=== PATIENT | male | born 1940 | race Caucasian/White ===

== ENCOUNTER 2016-05-11 10:36 | Inpatient (IN) ==
[2016-05-11] MEDS ORDERED: 0.9 % Sodium Chloride 1,000 ML IV SCH (13:30)
--- NOTE | 2016-05-11 14:19 | Internal Medicine Consult Note ---
<Jenna Canas - Last Filed: 05/11/16 14:53> Date of Encounter: 05/11/16 Time of Encounter: 14:00 Internal Medicine - CN: HPI - Data of Consult Patient: new to practice Consult date: 05/11/16 Requesting Physician: Cruzito Clay, - Consult Narrative Reason for consult: Diabetes, pre-operative evaluation History of present illness: Mr. Best is a 75 year old male with significant medical history of insulin- dependent diabetes with diabetic neuropathy, hypertension, history of prostate cancer. He follows Dr. Duvall of the [facility], per documentation his prostate cancer was treated with radiation therapy. Patient states that he has ongoing diabetes going on for over 20 years, with associated diabetic neuropathy. He would endorse numbness below bilateral knees , and have difficulty discerning pain and sensation. Prior history of left foot second toe amputation secondary to diabetic neuropathy with gangrene. States that most recent left foot third toe would develop a callus about 1 week prior, and he did pick at the callus. He does have a dog at home but denies any bites or scratches. The patient then noticed progressive oozing from the site, with purulence. This is accompanied by subjective chills, prompting evaluation at [facility]. Patient would be seen on office visit with Dr. Clay on 05/08/2016 for left toe ulcer/abscess. Prior workup would disclose wound culture of the left foot with pansensitive Staph Aureus, Group B Strep. Gram stain with disclose a few epithelial cells, gram-positive cocci observed. Anaerobic cultures preliminary with disclose no anaerobic growth present. Patient was started on a course of Augmentin and Levaquin, but with no appreciable interval improvement. The internal medicine service is consulted for preoperative evaluation and medical optimization prior to toe amputation.. Upon my evaluation, patient affirms events leading to hospitalization as well as past medical history as mentioned above. 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 He would smoke up to 4 packs per day and now has decreased to 1 pack per day. He has tried nicotine patches in the past but does not want any at this time he does drink an occasional beer or bourbon on occasion, per him once in a blue wright last drink a few months ago. States blood sugars at home run 400s, on insulin 70/30, 50QAM, 40QPM He would have prior cardiac workup in March 2016, disclosing echocardiogram EF 60%, mild aortic stenosis, mild/moderate aortic regurgitation. Nuclear stress test which showed no evidence of ischemia or infarct, gated EF 45 % The patient endorses subjective chills as of today, left foot third toe oozing and redness, poor appetite with weight loss, without any abdominal pain, nausea , vomiting, diarrhea. He denies any chest pain, chest pressure, pleurisy, shortness of breath. Does endorse coughing with productive green phlegm. All systems: reviewed and no additional remarkable complaints except as stated Past Med Surg Social Fam HX - Past Medical History Medical history: cancer, COPD, diabetes, GERD, hypertension Psychiatric history: anxiety, depression - Past Surgical History Surgical History: appendectomy, herniorrhaphy - Social History Smoking Status: Current every day smoker Packs per day: 1 Smokeless Tobacco Status: No Alcohol use: none Drug use: none - Family History Father Living Status: Age at : 46 Cause of : Lung Cancer Hx Family Cardiac Disorders: Yes Hx Family Respiratory Disorders: Yes Hx Family Cancer: Yes (Lung and Colon Cancer) Hx Family GI Disorders: Yes (Colon Cancer) Hx Family Genitourinary Disorders: No Hx Family Endocrine Disorder: Yes (Diabetes) Hx Family Musculoskeletal Disorders: No Hx Family Neuromuscular Disorders: No Hx Family Neurologic Disorders: No Hx Family HEENT Disorders: No Hx Family Autoimmune Disorders: No Hx Family Reproductive Disorders: No Hx Family Psychosocial Disorders: No Hx Family Medical Disorders: No Internal Medicine - CN: Meds Fenofibrate [Tricor] 145 mg PO DAILY 01/16/15 [History] Allopurinol [Zyloprim 300 MG] 300 mg PO HS 02/12/15 [History] Aspirin 81 mg PO DAILY 02/12/15 [History] Budesonide/Formoterol 160/4.5 [Symbicort] 1 puff IH BIDR 02/12/15 [History] Citalopram [CeleXA] 40 mg PO HS 02/12/15 [History] ClonazePAM [Klonopin] 0.5 mg PO BID PRN 02/12/15 [History] Gabapentin [Neurontin] 800 mg PO TID 02/12/15 [History] Insulin NPH Hum/Reg Insulin Hm [Novolin 70-30 100 Unit/ml Vial] 50 unit SQ QAM 02/12/15 [History] LORazepam [Ativan] 1 mg PO HS 02/12/15 [History] Lisinopril [Zestril] 40 mg PO BID 02/12/15 [History] Loratadine [Claritin] 10 mg PO DAILY 02/12/15 [History] Lovastatin [Mevacor] 40 mg PO BID 02/12/15 [History] Metformin [Glucophage] 1,000 mg PO BID 02/12/15 [History] Metoprolol XL (24 HR) Succ [Toprol XL] 25 mg PO DAILY 02/12/15 [History] Omeprazole [Prilosec] 40 mg PO HS 02/12/15 [History] Oxybutynin [Ditropan] 5 mg PO BID 02/12/15 [History] Oxycodone HCl/Acetaminophen [Percocet 5-325 mg Tablet] 1 each PO Q12H PRN [History] Insulin NPH Hum/Reg Insulin Hm [Novolin 70-30 100 Unit/ml Vial] 40 unit SQ HS [History] Tamsulosin [Flomax] 0.4 mg PO DAILY 04/12/15 [History] Albuterol Sulfate [Proair Hfa] 2 puff IH Q4H PRN 04/13/16 [History] Hydrochlorothiazide 12.5 mg PO DAILY 04/13/16 [History] Ibuprofen [Motrin] 800 mg PO BID PRN 04/13/16 [History] Theophylline Anhydrous [Theophylline] 400 mg PO DAILY 04/13/16 [History] Allergies Sulfa (Sulfonamide Antibiotics) Allergy (Severe, Verified 04/13/16 12:01) Itching, hives, rash Latex, Natural Rubber Allergy (Verified 04/13/16 12:01) See Comments Tape Allergy (Severe, Uncoded 01/16/15 11:52) Pulls skin off Pt states all tape but cloth tape Internal Medicine - CN: Exam - Constitutional Vitals: Temp Pulse Resp BP Pulse Ox 97.6 F 69 14 182/85 95 05/11/16 11:45 05/11/16 11:45 05/11/16 11:45 05/11/16 11:45 05/11/16 11:45 General appearance IM: Present: A&O X 3, pleasant - Head Head exam: Present: atraumatic, normal inspection - Eye Eye exam: Present: EOMI, sclera anicteric - ENT ENT exam: Present: mucous membranes moist - Neck Neck exam general surgery: Present: full ROM, trachea midline. Absent: lymphadenopathy - Respiratory Respiratory exam: Present: rhonchi (scant exp ronchi, no wheeze). Absent: accessory muscle use, wheezes - Cardiovascular Cardiovascular exam IM: Present: +S1, +S2, systolic murmur (CHACE 3/6 c/w A-S). Absent: JVD - GI/Abdominal GI/Abdominal exam IM: Present: soft, no peritoneal signs. Absent: tenderness - Extremities Exam Extremities exam IM: Present: pedal edema, warm, radial pulses palpable and symetrical Additional comments: Nick LE dry, erythematous, signs of chronic venous stasis. Left foot prior amputated 2nd toe. 3rd toe with blistering anterior aspect 18mm x 12mm, watery discharge. Right foot, 1st MT plantar aspect with 11mm x 8mm stage II ulcer, nonweeping. Distal pulses intact, NVI though decreased sensation 2* his diabetic neuropathy. - Assessment and Plan (1) Diabetic foot ulcer Current Visit: Yes Status: Acute Assessment and plan: Left foot, 3rd toe with diabetic foot ulcer. X-ray on 05/08 would show findings consistent with cellulitis of the 3rd toe. No osteomyelitis is appreciated. Prior left foot 2nd toe amputation. Wound culture from 05/08 Staph Aureus, Group B Strep. Pansensitive. Currently on Zosyn therapy. May consider switching Zosyn to Ancef 1g Q8H, would defer to primary team. Anticipate left 3rd toe amputation - per primary team (Podiatry) Qualifiers: Diabetes mellitus type: type 1 Laterality: left Qualified Code(s): E10.621 - Type 1 diabetes mellitus with foot ulcer; L97.529 - Non-pressure chronic ulcer of other part of left foot with unspecified severity (2) Preoperative examination Current Visit: Yes Status: Acute Assessment and plan: Await return of CBC, BMP, EKG and other studies for further characterization. Has prior cardiac workup in March 2016, disclosing echocardiogram EF 60%, mild aortic stenosis, mild/moderate aortic regurgitation. Nuclear stress test which showed no evidence of ischemia or infarct, gated EF 45 % Patient relates no chest pain or anginal equivalents, though with diabetes and significant PVD. Thank you for the consultation. Appreciate the opportunity to participate in the care of this pleasant gentleman. We are awaiting return of labs and EKG for definitive risk stratification. (3) HTN (hypertension) Current Visit: Yes Status: Acute Assessment and plan: Would continue home medications. His metoprolol XL may need to be increased/adjusted per clinical course. Qualifiers: Hypertension type: essential hypertension Qualified Code(s): I10 - Essential (primary) hypertension (4) Insulin dependent diabetes mellitus Current Visit: Yes Status: Acute Assessment and plan: Poorly controlled. Per patient interview, takes NPH 70/30, 50 QAM, 40 QPM with BG running in 400's. In context of his poor appetite, will adjust for 50% intake, with levemir QHS, preprandial coverage as well, low SSI Accuchecks QACHS (5) Peripheral vascular disease due to secondary diabetes Current Visit: Yes Status: Acute Assessment and plan: Cont ASA, Statin, will need long-term improvement in BG control. (6) JUAN on CPAP Current Visit: Yes Status: Acute Assessment and plan: Per medical record. Cont QHS (7) DVT prophylaxis Current Visit: Yes Status: Acute Assessment and plan: EPCDs Consult Discharge Plan - Plan Referrals: Quinn Lew MD [Primary Care Provider] - <Chinedu Garza - Last Filed: 05/11/16 17:37> Date of Encounter: 05/11/16 - Attending Attestation I have seen and examined this patient independently. I have discussed the case with the resident, Dr. Canas. I agree with the data gathering in the HPI, physical examination findings, assessment and plan as documented by the resident. Continue with iv antibiotics, might deescalate. Monitor finger sticks and insulin therapy. The plan was discussed in detail with the patient. Internal Medicine - CN: HPI - Data of Consult Requesting Physician: Cruzito Clay, - Consult Narrative History of present illness: Mr. Best is a 75 year old male Internal Medicine - CN: Exam - Constitutional Vitals: Temp Pulse Resp BP Pulse Ox 97.5 F L 64 20 177/78 93 L 05/11/16 17:24 05/11/16 17:35 05/11/16 17:24 05/11/16 17:35 05/11/16 17:24 Internal Medicine - CN: Reslt - Labs CBC & Chem 7: 05/11/16 14:54 05/11/16 14:54 Labs: Short CBC 05/11/16 Range/Units 14:54 WBC 7.1 (4.3-11.1) K/mcL Hgb 14.9 (12.9-16.9) g/dL Hct 44.0 (37.5-50.1) % Plt Count 204 (140-400) K/mcL Neutrophils # 4.3 (1.6-8.9) K/mcL BMP 05/11/16 14:54 Sodium 136 Potassium 4.0 Chloride 101 Carbon Dioxide 28 BUN 14 Creatinine 0.80 Glucose 228 H Calcium 9.5 - ABG Interpretation ABG results: PT/INR, D-dimer PT 11.5 Seconds (9.4-12.1) 05/11/16 14:54
[2016-05-11] MEDS ORDERED: *HR* Dextrose 50 % in Water (Syg) 50 ML SYRINGE IVP PRN (14:42)
[2016-05-11] MEDS ORDERED: Dextrose Gel 15 GM PO PRN ×2 (14:42)
[2016-05-11] MEDS ORDERED: D5% in Water 1,000 ML IV PRN (14:42)
[2016-05-11] MEDS ORDERED: clonazePAM 0.5 MG TABLET PO PRN (14:57)
[2016-05-11 15:10] LABS: Basophils # 0.1 K/mcL (0.0-0.2); Eosinophils # 0.4 K/mcL (0.0-0.6); Eosinophils % 5.1 %; Hemoglobin 14.9 g/dL (12.9-16.9); Immature Granulocytes % 0.8 % (0-4); Lymphocytes # 1.7 K/mcL (0.6-4.6); Lymphocytes % 23.5 %; Mean Corpuscular HGB Conc 33.9 g/dL (31.6-35.5); Mean Corpuscular Hemoglobin 30.2 pg (28.0-33.3); Mean Corpuscular Volume 89.2 fL (83.0-100.0); Mean Platelet Volume 10.1 fL (9.4-12.4); Monocytes # 0.7 K/mcL (0.0-1.3); Monocytes % 9.7 %; Neutrophils # 4.3 K/mcL (1.6-8.9); Platelet Count 204 K/mcL (140-400); Red Blood Count 4.93 M/mcL (4.19-5.50); Red Cell Distribution Width 13.5 % (11.5-14.5); Segmented Neutrophils % 59.9 %
[2016-05-11 15:16] LABS: INR 1.1; Prothrombin Time 11.5 Seconds (9.4-12.1)
[2016-05-11 15:21] LABS: BUN/Creatinine Ratio 18 (6-26); Blood Urea Nitrogen 14 mg/dL (8-26); Calcium 9.5 mg/dL (8.6-10.8); Carbon Dioxide 28 mEq/L (19-29); Chloride 101 mEq/L (98-109); Glucose 228 mg/dL (70-99); Osmolality,Calculated 290 (280-300); Sodium 136 mEq/L (136-145); eGFR For African Americans > 60 (> 60); eGFR For Non-African Americans > 60 (> 60)
[2016-05-11] MEDS: *HR* OxyCODONE Immed Rel 5 MG TABLET PO PRN ×2 (15:22→21:44)
[2016-05-11] MEDS: Piperacillin/Tazobactam 3.375 GM in D5% in Water (Mini-Bag+) 100 ML IVPB SCH ×2 (15:24→23:30)
--- NOTE | 2016-05-11 16:57 | Podiatry History & Physical ---
History of Present Illness Chief complaint: Necrotic gangrenous toe #3 left foot HPI: Mr. Best is a 75 year old male who presented approximately 72 hours ago to clinic with a necrotic area on the dorsal aspect of his third toe with ulceration. Cultures were taken the wound was debrided patient placed on by mouth antibiotics. He was reevaluated again today in clinic and found to have progression of the wound with increasing necrosis over the dorsal aspect of left third toe since the patient failed outpatient therapy including by mouth antibiotics given his history of diabetes peripheral vascular disease and smoking he was admitted to the [facility] for intravenous antibiotics and likely amputation of his third toe. Patient does not presently complain of fever or chills nausea vomiting he does complain of fatigue tiredness etc. No complaints of acute chest pain or acute shortness of breath. Patient states he has no bowel or bladder dysfunction. All Systems Reviewed: A 10-system review of systems was performed and is negative for pertinent findings except as documented above in the HPI. Past Med Surg Social Fam HX - Past Medical History Medical history: cancer, COPD, diabetes, GERD, hypertension Psychiatric history: anxiety, depression - Past Surgical History Surgical History: appendectomy, herniorrhaphy - Social History Smoking Status: Current every day smoker Packs per day: 1 Smokeless Tobacco Status: No Alcohol use: none Drug use: none Occupational status: retired Current living situation: With Family Activity Level: Independent ambulation Recent Out of Country Travel Within the Last 8 Weeks: No Exposure or Possible Exposure to Illness During Travel: No - Family History Father Living Status: Age at : 46 Cause of : Lung Cancer Hx Family Cardiac Disorders: Yes Hx Family Respiratory Disorders: Yes Hx Family Cancer: Yes (Lung and Colon Cancer) Hx Family GI Disorders: Yes (Colon Cancer) Hx Family Genitourinary Disorders: No Hx Family Endocrine Disorder: Yes (Diabetes) Hx Family Musculoskeletal Disorders: No Hx Family Neuromuscular Disorders: No Hx Family Neurologic Disorders: No Hx Family HEENT Disorders: No Hx Family Autoimmune Disorders: No Hx Family Reproductive Disorders: No Hx Family Psychosocial Disorders: No Hx Family Medical Disorders: No Medications and Allergies Fenofibrate [Tricor] 145 mg PO DAILY 01/16/15 [History] Allopurinol [Zyloprim 300 MG] 300 mg PO HS 02/12/15 [History] Aspirin 81 mg PO DAILY 02/12/15 [History] Budesonide/Formoterol 160/4.5 [Symbicort] 1 puff IH BIDR 02/12/15 [History] Citalopram [CeleXA] 40 mg PO HS 02/12/15 [History] ClonazePAM [Klonopin] 0.5 mg PO BID PRN 02/12/15 [History] Gabapentin [Neurontin] 800 mg PO TID 02/12/15 [History] Insulin NPH Hum/Reg Insulin Hm [Novolin 70-30 100 Unit/ml Vial] 50 unit SQ QAM 02/12/15 [History] LORazepam [Ativan] 1 mg PO HS 02/12/15 [History] Lisinopril [Zestril] 40 mg PO BID 02/12/15 [History] Loratadine [Claritin] 10 mg PO DAILY 02/12/15 [History] Lovastatin [Mevacor] 40 mg PO BID 02/12/15 [History] Metformin [Glucophage] 1,000 mg PO BID 02/12/15 [History] Metoprolol XL (24 HR) Succ [Toprol XL] 25 mg PO DAILY 02/12/15 [History] Omeprazole [Prilosec] 40 mg PO HS 02/12/15 [History] Oxybutynin [Ditropan] 5 mg PO BID 02/12/15 [History] Oxycodone HCl/Acetaminophen [Percocet 5-325 mg Tablet] 1 each PO Q12H PRN [History] Insulin NPH Hum/Reg Insulin Hm [Novolin 70-30 100 Unit/ml Vial] 40 unit SQ HS [History] Tamsulosin [Flomax] 0.4 mg PO DAILY 04/12/15 [History] Albuterol Sulfate [Proair Hfa] 2 puff IH Q4H PRN 04/13/16 [History] Hydrochlorothiazide 12.5 mg PO DAILY 04/13/16 [History] Ibuprofen [Motrin] 800 mg PO BID PRN 04/13/16 [History] Theophylline Anhydrous [Theophylline] 400 mg PO DAILY 04/13/16 [History] Allergies Sulfa (Sulfonamide Antibiotics) Allergy (Severe, Verified 04/13/16 12:01) Itching, hives, rash Latex, Natural Rubber Allergy (Verified 04/13/16 12:01) See Comments Tape Allergy (Severe, Uncoded 01/16/15 11:52) Pulls skin off Pt states all tape but cloth tape Physical Exam - Constitutional Vitals: Temp Pulse Resp BP Pulse Ox 96.9 F L 67 14 181/71 97 05/11/16 15:52 05/11/16 15:52 05/11/16 15:52 05/11/16 15:52 05/11/16 15:52 - Ankle & Foot left Foot appearance: swelling, erythema Foot swelling: dorsal, toes (Exam: Vascular: Pedal pulses DP nonpalpable PT palpable diminished 1/4. Bilateral. Rubor on dependency pallor and elevation no bryan cyanosis of digits except for #3 toe left foot. Neurologic: Patient is loss of protective sensation, epicritic sensation, vibratory sensation, bilaterally from toes to tibia. No spasticity. No rigidity no flaccidity. DTR of Achilles and patellar equal and symmetrical 1/4. Musculoskeletal no gross defect or deformity history of amputation toe #2 left foot remote, healed. Integument ulcer dorsal aspect of the DIPJ to #3 left foot with necrosis of the third toe dorsal and dorsal lateral aspect from the base of the toe distally. Associated cellulitis to the dorsal aspect left foot although improved with 3 days of by mouth antibiotics is still present. Necrosis has increased in dimension over the third toe.) Results - Labs Result Diagrams: 05/11/16 14:54 05/11/16 14:54 Labs: Abnormal lab results ESR 50 mm/hr (0-10) H 05/11/16 14:54 Glucose 228 mg/dL (70-99) H 05/11/16 14:54 POC Glucose 225 (58-89) H 05/11/16 15:58 C-Reactive Protein 36 mg/L (Less than 5) H 05/11/16 14:54 H & H 05/11/16 Range/Units 14:54 Hgb 14.9 (12.9-16.9) g/dL Hct 44.0 (37.5-50.1) % All other labs normal. - Diagnostic results Ankle/Foot x-ray: image reviewed Assessment and Plan (1) Necrotic toes Current visit: Yes Status: Acute Assessment: #1 necrotic toe #3 left foot with associated cellulitis of the left forefoot dorsal aspect plantar spared. #2 diabetes with neuropathy and angiopathy. #3 Multiple comorbidities as outlined in history #4 Inveterate smoker Plan: #1 intravenous antibiotics recent cultures revealed MSSA #2 medical evaluation and management of diabetes by hospitalist service appreciated #3 patient will likely need digital amputation of toe #3 once found to be medically optimized.
[2016-05-11] MEDS ORDERED: Insulin LISPRO 300 UNITS/3 ML VIAL SQ SCH ×2 (17:00→21:00)
[2016-05-11] MEDS: Insulin LISPRO 300 UNITS/3 ML VIAL SQ SCH (17:26)
[2016-05-11] MEDS ORDERED: Ondansetron 4 MG/2 ML VIAL IVP PRN (17:36)
[2016-05-11] MEDS ORDERED: *HR* Promethazine 25 MG/ML VIAL IVP PRN (17:36)
[2016-05-11] MEDS: Budesonide/Formoterol 160/4.5 MDI IH SCH (20:33)
[2016-05-11] MEDS ORDERED: Insulin DETEMIR 100 UNIT/ML X5UNITS SQ SCH (21:00)
[2016-05-12 06:14] LABS: Basophils # 0.1 K/mcL (0.0-0.2); Basophils % 1.1 %; Eosinophils # 0.4 K/mcL (0.0-0.6); Hematocrit 42.5 % (37.5-50.1); Hemoglobin 14.4 g/dL (12.9-16.9); Immature Granulocytes % 0.8 % (0-4); Mean Corpuscular HGB Conc 33.9 g/dL (31.6-35.5); Mean Corpuscular Hemoglobin 30.4 pg (28.0-33.3); Mean Corpuscular Volume 89.9 fL (83.0-100.0); Mean Platelet Volume 10.3 fL (9.4-12.4); Monocytes # 0.8 K/mcL (0.0-1.3); Monocytes % 10.1 %; Neutrophils # 4.3 K/mcL (1.6-8.9); Platelet Count 197 K/mcL (140-400); Red Blood Count 4.73 M/mcL (4.19-5.50); Red Cell Distribution Width 13.5 % (11.5-14.5)
[2016-05-12 06:21] LABS: Hemoglobin A1C 8.4 %
[2016-05-12 06:24] LABS: BUN/Creatinine Ratio 16 (6-26); Blood Urea Nitrogen 13 mg/dL (8-26); Calcium 9.3 mg/dL (8.6-10.8); Carbon Dioxide 25 mEq/L (19-29); Chloride 105 mEq/L (98-109); Glucose 173 mg/dL (70-99); Magnesium 1.7 mg/dL (1.6-2.6); Osmolality,Calculated 292 (280-300); Potassium 4.3 mEq/L (3.5-4.5); Sodium 139 mEq/L (136-145); eGFR For African Americans > 60 (> 60); eGFR For Non-African Americans > 60 (> 60)
[2016-05-12] MEDS: Piperacillin/Tazobactam 3.375 GM in D5% in Water (Mini-Bag+) 100 ML IVPB SCH ×2 (08:34→15:42)
[2016-05-12] MEDS: Insulin LISPRO 300 UNITS/3 ML VIAL SQ SCH (08:35)
--- NOTE | 2016-05-12 08:40 | Internal Med Progress Note ---
<Jenna Canas - Last Filed: 05/12/16 13:20> Date of Encounter: 05/12/16 Time of Encounter: 08:39 - Assessment and plan (1) Diabetic foot ulcer Current Visit: Yes Status: Acute Assessment and plan: Left foot, 3rd toe with diabetic foot ulcer. X-ray on 05/08 would show findings consistent with cellulitis of the 3rd toe. No osteomyelitis is appreciated. Prior left foot 2nd toe amputation. Wound culture from 05/08 Staph Aureus, Group B Strep. Pansensitive. Currently on Zosyn therapy Day #[address] Clay. Patient to continue Zosyn at this time, to keep NPO until anticipated procedure later today. Qualifiers: Diabetes mellitus type: type 1 Laterality: left Qualified Code(s): E10.621 - Type 1 diabetes mellitus with foot ulcer; L97.529 - Non-pressure chronic ulcer of other part of left foot with unspecified severity (2) Preoperative examination Current Visit: Yes Status: Acute Assessment and plan: Electrolytes wnl, no evidence of ROSALINO. BG is improved. Has prior cardiac workup in March 2016, disclosing echocardiogram EF 60%, mild aortic stenosis, mild/moderate aortic regurgitation. Nuclear stress test which showed no evidence of ischemia or infarct, gated EF 45 % Patient relates no chest pain or anginal equivalents, though with diabetes and significant PVD. Trope negative. EKG, sinus 64bpm, with evidence of left atrial hypertrophy, LVH. ST depression c /w LVH. Preoperative risk stratification, Revised Asad's Cardiac Risk Index for Pre- Operative Risk 2 points, Class III, 6.6%, low-moderate risk for undergoing low-risk procedure. At this juncture, he is medically optimized. Discussed with the primary team. (3) HTN (hypertension) Current Visit: Yes Status: Acute Assessment and plan: Would continue home medications. His metoprolol XL may need to be increased/adjusted per clinical course. Has hydralazine 10mg IV Q6H prn SBP>160 Qualifiers: Hypertension type: essential hypertension Qualified Code(s): I10 - Essential (primary) hypertension (4) Insulin dependent diabetes mellitus Current Visit: Yes Status: Acute Assessment and plan: Poorly controlled. Per patient interview, takes NPH 70/30, 50 QAM, 40 QPM with BG running in 400's. In context of his poor appetite, will adjust for 50% intake, with levemir QHS, low SSI 05/12/2016 He did have significant bout of nausea yesterday afternoon, consideration of relative hypoglycemia given his reported baseline BG 400's. Dc'd preprandial insulin. Currently NPO, will do Q6H Accuchecks. (5) Peripheral vascular disease due to secondary diabetes Current Visit: Yes Status: Acute Assessment and plan: Cont ASA, Statin, will need long-term improvement in BG control. (6) JUAN on CPAP Current Visit: Yes Status: Acute Assessment and plan: Per medical record. Cont QHS (7) DVT prophylaxis Current Visit: Yes Status: Acute Assessment and plan: EPCDs - Subjective Interval history: Patient seen/eval at bedside, reports subjective sensation of chills, and nausea , but without vomiting, chest pain, pressure, diaphoresis. - Constitutional Vitals: Temp Pulse Resp BP Pulse Ox 97.4 F L 69 18 160/71 93 L 05/12/16 07:00 05/12/16 07:00 05/12/16 07:00 05/12/16 07:00 05/12/16 07:00 General appearance: Present: A&O X 3, pleasant - Head Head exam: Present: atraumatic, normocephalic - Eye Eye exam: Present: EOMI, sclera anicteric - ENT ENT exam: Present: mucous membranes moist - Neck Neck exam general surgery: Present: supple, trachea midline - Respiratory Respiratory exam: Present: rhonchi (scant ronchi, no crackles or wheeze). Absent: wheezes, tachypnea - Cardiovascular Cardiovascular exam: Present: +S1, +S2, systolic murmur (CHACE 3/6 c/w A-S). Absent: JVD - GI/Abdominal GI/Abdominal exam: Present: soft, no peritoneal signs. Absent: tenderness - Extremities Exam Extremities exam: Present: pedal edema (mild sybil LE), warm, radial pulses palpable and symetrical Additional comments: Sybil LE dry, erythematous, signs of chronic venous stasis. Left foot prior amputated 2nd toe. 3rd toe with blistering anterior aspect 18mm x 12mm, now bandaged cdi to forefoot and heel. NVI - Neurological Exam Neurological exam: Absent: facial droop, speech deficit Internal Medicine: Result - Labs CBC & Chem 7: 05/12/16 04:46 05/12/16 04:46 Labs: Short CBC 05/11/16 05/12/16 Range/Units 14:54 04:46 WBC 7.1 7.5 (4.3-11.1) K/mcL Hgb 14.9 14.4 (12.9-16.9) g/dL Hct 44.0 42.5 (37.5-50.1) % Plt Count 204 197 (140-400) K/mcL Neutrophils # 4.3 4.3 (1.6-8.9) K/mcL BMP 05/11/16 05/12/16 14:54 04:46 Sodium 136 139 Potassium 4.0 4.3 Chloride 101 105 Carbon Dioxide 28 25 BUN 14 13 Creatinine 0.80 0.83 Glucose 228 H 173 H Calcium 9.5 9.3 Cardiac Enzymes 05/11/16 Range/Units 14:54 Troponin I 0.03 (0-0.03) ng/mL - ABG Interpretation ABG results: PT/INR, D-dimer PT 11.5 Seconds (9.4-12.1) 05/11/16 14:54 Consult Discharge Plan - Plan <Chinedu Garza R - Last Filed: 05/12/16 17:52> - Constitutional Vitals: Temp Pulse Resp BP Pulse Ox 97.5 F L 68 16 170/90 93 L 05/12/16 14:44 05/12/16 14:44 05/12/16 14:44 05/12/16 14:44 05/12/16 14:44 Internal Medicine: Result - Labs CBC & Chem 7: 05/12/16 04:46 05/12/16 04:46 Labs: Short CBC 05/12/16 Range/Units 04:46 WBC 7.5 (4.3-11.1) K/mcL Hgb 14.4 (12.9-16.9) g/dL Hct 42.5 (37.5-50.1) % Plt Count 197 (140-400) K/mcL Neutrophils # 4.3 (1.6-8.9) K/mcL BMP 05/12/16 04:46 Sodium 139 Potassium 4.3 Chloride 105 Carbon Dioxide 25 BUN 13 Creatinine 0.83 Glucose 173 H Calcium 9.3 Cardiac Enzymes 05/11/16 Range/Units 14:54 Troponin I 0.03 (0-0.03) ng/mL - ABG Interpretation ABG results: PT/INR, D-dimer PT 11.5 Seconds (9.4-12.1) 05/11/16 14:54 - Attending Attestation Patient seen and examined. Agree with physical examination findings, assessment and plan as documented by Dr. Canas. Will add amlodipine for HTN.
[2016-05-12] MEDS ORDERED: Fenofibrate 54 MG TABLET PO SCH (09:00)
[2016-05-12] MEDS ORDERED: Loratadine 10 MG TABLET PO SCH (09:00)
[2016-05-12] MEDS ORDERED: Metoprolol XL (24 HR) Succ 25 MG TAB.ER.24H PO SCH (09:00)
[2016-05-12] MEDS ORDERED: Aspirin 81 MG TAB.CHEW PO SCH (09:00)
[2016-05-12] MEDS: Budesonide/Formoterol 160/4.5 MDI IH SCH ×2 (11:03→20:13)
[2016-05-12] MEDS ORDERED: Insulin LISPRO 300 UNITS/3 ML VIAL SQ SCH ×3 (12:00→21:00)
--- NOTE | 2016-05-12 14:22 | Electrocardiograph Report ---
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
[2016-05-12] MEDS ORDERED: Bupivacaine/Clonidine Syringe 1 EACH SYRINGE ONE (15:34)
--- NOTE | 2016-05-12 15:45 | Anesthesia Evaluation PreOp ---
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: Denies Any Significant HX Other Medical History: Diabetes Type II, GERD Anesthesia History: No Prior Anesthetic Complications, Past Anesthesia Alcohol Use: none Drug use: none Medications and Allergies Fenofibrate [Tricor] 145 mg PO DAILY 01/16/15 [History] Allopurinol [Zyloprim 300 MG] 300 mg PO HS 02/12/15 [History] Aspirin 81 mg PO DAILY 02/12/15 [History] Budesonide/Formoterol 160/4.5 [Symbicort] 1 puff IH BIDR 02/12/15 [History] Citalopram [CeleXA] 40 mg PO HS 02/12/15 [History] ClonazePAM [Klonopin] 0.5 mg PO BID PRN 02/12/15 [History] Gabapentin [Neurontin] 800 mg PO TID 02/12/15 [History] Insulin NPH Hum/Reg Insulin Hm [Novolin 70-30 100 Unit/ml Vial] 50 unit SQ QAM 02/12/15 [History] LORazepam [Ativan] 1 mg PO HS 02/12/15 [History] Lisinopril [Zestril] 40 mg PO BID 02/12/15 [History] Loratadine [Claritin] 10 mg PO DAILY 02/12/15 [History] Lovastatin [Mevacor] 40 mg PO BID 02/12/15 [History] Metformin [Glucophage] 1,000 mg PO BID 02/12/15 [History] Metoprolol XL (24 HR) Succ [Toprol XL] 25 mg PO DAILY 02/12/15 [History] Omeprazole [Prilosec] 40 mg PO HS 02/12/15 [History] Oxybutynin [Ditropan] 5 mg PO BID 02/12/15 [History] Oxycodone HCl/Acetaminophen [Percocet 5-325 mg Tablet] 1 each PO Q12H PRN [History] Insulin NPH Hum/Reg Insulin Hm [Novolin 70-30 100 Unit/ml Vial] 40 unit SQ HS [History] Tamsulosin [Flomax] 0.4 mg PO DAILY 04/12/15 [History] Albuterol Sulfate [Proair Hfa] 2 puff IH Q4H PRN 04/13/16 [History] Hydrochlorothiazide 12.5 mg PO DAILY 04/13/16 [History] Ibuprofen [Motrin] 800 mg PO BID PRN 04/13/16 [History] Theophylline Anhydrous [Theophylline] 400 mg PO DAILY 04/13/16 [History] Allergies Sulfa (Sulfonamide Antibiotics) Allergy (Severe, Verified 04/13/16 12:01) Itching, hives, rash Latex, Natural Rubber Allergy (Verified 04/13/16 12:01) See Comments Tape Allergy (Severe, Uncoded 01/16/15 11:52) Pulls skin off Pt states all tape but cloth tape - Meds/Allergy Pre-op Review Medications Reviewed: Yes Allergies Reviewed: Yes Beta Blockers on Current Med List: Yes If Beta Blockers taken, Date/Time (Last Dose taken): 05/12/2016 at 0834 Anesthesia Results - Labs 05/12/16 04:46 05/12/16 04:46 - Imaging EKG: report reviewed (05/11/2016 SR with occasional SPVC's, LVH and ST-T change, possible septal infarct) Additional studies: 03/25/2016 Stress EF 45% perfusion imaging was negative for ischemia or infarct 03/20/2016 Echo LVEF 60-65% mild concentric LVH mild LV diastolic dysfunction moderately calcified, trileaflet AV with reduced excursion mild , mean gradient 12 mmHg mild-mod AR 08/27/2014 Echo Impressions: This was technically a very limited study due to poor echocardiographic windows and patient moving during image acquisition (rib injuries, difficulty breathing). Normal LV systolic function, LVEF 55-60%. Not all myocardial segments were well visualized. Mild left ventricular diastolic dysfunction. Normal right ventricular structure and function. Mildly dilated left atrium. Mildly dilated right atrium. Aortic valve not well visualized, but appeared thickened/calcified. Mild aortic stenosis. Mild-moderate aortic regurgitation. No evidence of pulmonary hypertension. Anesthesia Exam Vital Signs/O2 Sat, Most Current Temp Pulse Resp BP Pulse Ox 97.5 F L 68 16 170/90 93 L 05/12/16 14:44 05/12/16 14:44 05/12/16 14:44 05/12/16 14:44 05/12/16 14:44 Height: 5'/1.52 m Weight: 215 lbs NPO (# of Hours): 8 Pain Scale: 0 Pain Scale Used: Numeric (1 - 10) - HEENT Pupil (Motor): EOMI Mallampati: II Teeth: Edentulous Oral Opening: Greater than 3 - COMBAT SYSTEMS OPERATOR LOC: Oriented COMBAT SYSTEMS OPERATOR Motor: Normal RUE, Normal LUE, Normal RLE, Normal LLE, Normal Face COMBAT SYSTEMS OPERATOR Sensory: Normal: RUE, LUE, Face, Deficit: RLE, LLE - Cardiac Rhythm: Regular Murmur: Systolic - Pulmonary Breath Sounds: bilateral Clear Respiratory Effort: Symmetrical Anesthesia Assess/Plan ASA Score: 3 Modified Putnam Scale for Level of Consciousness: Cooperative, oriented, and tranquil Anesthetic Plan: MAC Monitoring Plan: Standard Monitors
--- NOTE | 2016-05-12 15:49 | Arterial Study Report ---
LE Arterial Physiologic Study Patient Name:Jose Alfredo Best Order Number:[id number] Procedure Date:05/12/2016 Date:1Age:75 yrs Gender:Male Lt BP:175 / mmHg Rt.BP:166 / mmHgHeart Rate: Location:[facility] Room #: 3A12 [employer] Supervisor:Ella Julien Referring MD:Cruzito Clay DPM radiological metallurgist:Quinn Lew MD Reading MD:Shayan Power MD Primary Indications:Toe ulcer, smoker,diabetes Risk Factors Yes/No Hypertension Hypercholesterolemia Diabetes Smoking Current Impressions: 1) Bilateral lower extremities waveform demonstrates normal hemodynamics. 2) bilateral Ankle Brachial Index is normal. 3) Overall Impression: Arterial hemodynamics are well maintained at rest. Findings LE Arterial Physiologic Exam: PVR: Right: The PVR waveforms are normal in the right ankle. Left: The PVR waveforms are normal in the left ankle. Segmental Pressures Side Location Pressure Index Result Right Posterior Tibial 191 1.09 Normal Right Dorsalis Pedis 182 1.04 Normal Left Posterior Tibial 190 1.09 Normal Left Dorsalis Pedis 200 1.14 Normal Ankle Brachial Index Right Systolic Diastolic AGUILAR Brachial 166 1.09 Dorsalis Pedis 182 1.04 Posterior Tibial 191 1.09 Left Systolic Diastolic AGUILAR Brachial 175 1.14 Dorsalis Pedis 200 1.14 Posterior Tibial 190 1.09 Updated by Shayan Power MD on 05/12/2016 3:43:52 PM with Status of Final electronically signed on 05/12/2016 3:44:24 PM with status of Final
[2016-05-12] MEDS ORDERED: *HR* Midazolam HCl 2 MG/2 ML VIAL ONE (16:32)
--- NOTE | 2016-05-12 17:16 | Orthopedic Operative Note ---
Date of procedure: 05/12/16 Pre-op diagnosis: Gangrene toe #3 left foot Post-op diagnosis: same Procedure: 05/12/16 17:20 #1: Amputation toe #3 left foot at metatarsophalangeal joint Implants: None Complications: None Anesthesia: MAC Local Anesthetics: 0.25% Sensorcaine HCL SubQ (cc) Surgeon: Cruzito Clay Estimated blood loss (cc): 10 Tourniquet Time (Minutes): 0 Specimen: Toe #3 left foot Condition: stable Disposition: floor Procedure in Detail: 05/12/16 17:21 Details in summary of operation: Patient brought to surgical suite. A sign in procedure was performed. Patient was then transferred to the surgical table and positioned properly safely and securely. Left foot elevated on a foam block. No tourniquet used. Left ankle prepped with alcohol 3 times. Modified ankle block carried out as well as A-V block at the mid shaft of the second metatarsal with local anesthetic without difficulty or complication or pain. Left foot was then prepped and draped in usual sterile manner. Surgical timeout taken. A modified semi-elliptical incision/racquet incision was performed creating a flap in the medial aspect of the third toe because of the full-thickness necrosis on the dorsal lateral aspect of the digit. It/necrosis , extended from the distal dorsal aspect along the lateral aspect of the digit to the base of the toe with web space.. A full-thickness incision was then begun the dorsal aspect of the MTPJ #3 brought distally and dorsally toward the tip of the toe and then along the midline of the plantar aspect of the toe to the sulcus. A lateral incision was begun as dorsal aspect of the MTPJ #3 and brought distally and laterally just proximal to the line of necrosis of the webspace circumferentially around the toe meeting the first incision in the sulcus. The extensor and flexor tendons were divided cleanly. A flap was raised medially at the level of the periosteum and dissected proximally. With a proximal flap base medially. The proximal phalanx was grasped and a capsulotomy was performed and the toes and resected/disarticulated and sent for gross and microscopic. The wound was flushed with copious amounts sterile saline. There is no necrosis noted proximally or other flap. The wound edges were noted to bleed freely without sustaining his of Bovie ligature. No purulent drainage was noted. After complete irrigation with sterile saline and the medial flap was fashioned to fit the lateral incision any redundant tissue was excised with a #15 scalpel blade and pickup. Skin was repaired with 3-0 Prolene without difficulty skin edges remained viable after placing the last suture. Wound was dressed with sterile Adaptic 4 x 4's and Kerlix no active bleeding was noted hemostasis was achieved prior to closure. Patient tolerated the procedure well as well as the anesthesia. Patient was sent to his room in good condition with vital signs stable.
--- NOTE | 2016-05-12 17:25 | Anesthesia Evaluation Post Op ---
Date of Encounter: 05/12/16 Time of Encounter: 17:23 - Vital Signs Vital Signs: 3 Vital Signs BP 170/86 Pulse 62 Resp 18 O2 Sat 93% - Lungs Lungs: Clear Ascult./Percussion - Airway Airway: Non-obstructed - Cardiovascular Regular Rate - Mental Status Mental Status: Alert & Oriented, Answers Appropriately - Pain Pain Scale: 0 Pain Scale used: Numeric (1 - 10) - Nausea Vomiting Nausea Vomiting: Not Present - Hydration Hydration: NPO, Has not voided - Discharge PostOp Status: Transfer Patient to floor
[2016-05-12] MEDS ORDERED: Ondansetron 4 MG/2 ML VIAL IVP PRN (17:31)
[2016-05-12] MEDS ORDERED: *HR* Promethazine 25 MG/ML VIAL IVP PRN (17:31)
[2016-05-12] MEDS ORDERED: Dextrose Gel 15 GM PO PRN ×2 (17:31)
[2016-05-12] MEDS ORDERED: *HR* Dextrose 50 % in Water (Syg) 50 ML SYRINGE IVP PRN (17:31)
[2016-05-12] MEDS ORDERED: clonazePAM 0.5 MG TABLET PO PRN (17:31)
[2016-05-12] MEDS ORDERED: D5% in Water 1,000 ML IV PRN (17:31)
[2016-05-12] MEDS: *HR* OxyCODONE Immed Rel 5 MG TABLET PO PRN (20:20)
[2016-05-12] MEDS ORDERED: Insulin DETEMIR 100 UNIT/ML X5UNITS SQ SCH (21:00)
[2016-05-13] MEDS: Piperacillin/Tazobactam 3.375 GM in D5% in Water (Mini-Bag+) 100 ML IVPB SCH ×3 (00:33→07:35)
--- NOTE | 2016-05-13 01:04 | Event Note ---
Date of Encounter: 05/13/16 Time of Encounter: 01:03 patient refusing IV line again as he does not want to have another IV. Start augmentin PO, hold Zosyn
[2016-05-13] MEDS ORDERED: hydrALAZINE 25 MG TABLET PO PRN (02:14)
[2016-05-13] MEDS: *HR* OxyCODONE Immed Rel 5 MG TABLET PO PRN ×2 (02:29→08:22)
[2016-05-13] MEDS: Insulin LISPRO 300 UNITS/3 ML VIAL SQ SCH ×2 (08:18→12:11)
[2016-05-13] MEDS ORDERED: amLODIPine 5 MG TABLET PO SCH (09:00)
[2016-05-13] MEDS ORDERED: Fenofibrate 54 MG TABLET PO SCH (09:00)
[2016-05-13] MEDS ORDERED: Aspirin 81 MG TAB.CHEW PO SCH (09:00)
[2016-05-13] MEDS ORDERED: Metoprolol XL (24 HR) Succ 25 MG TAB.ER.24H PO SCH (09:00)
[2016-05-13] MEDS ORDERED: Loratadine 10 MG TABLET PO SCH (09:00)
[2016-05-13 11:03] VITALS: BP 143/74
[2016-05-13] MEDS: Budesonide/Formoterol 160/4.5 MDI IH SCH (11:05)
--- NOTE | 2016-05-13 11:16 | Internal Med Progress Note ---
<Jenna Canas - Last Filed: 05/13/16 16:47> Date of Encounter: 05/13/16 Time of Encounter: 11:15 - Assessment and plan (1) Diabetic foot ulcer Status: Acute Assessment and plan: Left foot, 3rd toe with diabetic foot ulcer. X-ray on 05/08 would show findings consistent with cellulitis of the 3rd toe. No osteomyelitis is appreciated. Prior left foot 2nd toe amputation. Wound culture from 05/08 Staph Aureus, Group B Strep. Pansensitive. 05/12/2016 Amputation toe #3 left foot at metatarsophalangeal joint Per operative note, clean resection, without necrosis. BC x 2 negative, no bacteremia. MSSA, agree with keflex on dc. Qualifiers: Diabetes mellitus type: type 1 Laterality: left Qualified Code(s): E10.621 - Type 1 diabetes mellitus with foot ulcer; L97.529 - Non-pressure chronic ulcer of other part of left foot with unspecified severity (2) Preoperative examination Status: Acute Assessment and plan: Electrolytes wnl, no evidence of ROSALINO. BG is improved. Has prior cardiac workup in March 2016, disclosing echocardiogram EF 60%, mild aortic stenosis, mild/moderate aortic regurgitation. Nuclear stress test which showed no evidence of ischemia or infarct, gated EF 45 % Patient relates no chest pain or anginal equivalents, though with diabetes and significant PVD. Trope negative. EKG, sinus 64bpm, with evidence of left atrial hypertrophy, LVH. ST depression c /w LVH. 05/12/16 Preoperative risk stratification, Revised Asad's Cardiac Risk Index for Pre- Operative Risk 2 points, Class III, 6.6%, low-moderate risk for undergoing low-risk procedure. (3) HTN (hypertension) Status: Acute Assessment and plan: Would continue home medications. His metoprolol XL may need to be increased/adjusted per clinical course. Has hydralazine 10mg IV Q6H prn SBP>160 Qualifiers: Hypertension type: essential hypertension Qualified Code(s): I10 - Essential (primary) hypertension (4) Insulin dependent diabetes mellitus Status: Acute Assessment and plan: Poorly controlled. Per patient interview, takes NPH 70/30, 50 QAM, 40 QPM with BG running in 400's. In context of his poor appetite, will adjust for 50% intake, with levemir QHS, low SSI 05/12/2016 He did have significant bout of nausea yesterday afternoon, consideration of relative hypoglycemia given his reported baseline BG 400's. Dc'd preprandial insulin. Currently NPO, will do Q6H Accuchecks. 05/13/2016 BG up to 300, suspect 2* post-op stress response (5) Peripheral vascular disease due to secondary diabetes Status: Acute Assessment and plan: Cont ASA, Statin, will need long-term improvement in BG control. (6) JUAN on CPAP Status: Acute Assessment and plan: Per medical record. Cont QHS (7) DVT prophylaxis Status: Acute Assessment and plan: EPCDs - Subjective Interval history: Patient seen/eval at bedside, he is in isolation for presumed MRSA. He reports some pain in left foot site of amputation, but controlled on current regimen. Denies any fever or breakthrough chills that he experienced prior to procedure. - Constitutional Vitals: Temp Pulse Resp BP Pulse Ox 98.2 F 62 18 143/74 93 L 05/13/16 11:01 05/13/16 11:01 05/13/16 11:05 05/13/16 11:01 05/13/16 11:05 General appearance: Present: A&O X 3, pleasant - Head Head exam: Present: atraumatic, normocephalic - Eye Eye exam: Present: EOMI, sclera anicteric - ENT ENT exam: Present: mucous membranes moist - Neck Neck exam general surgery: Present: supple, trachea midline - Respiratory Respiratory exam: Present: rhonchi (scant ronchi, no crackles). Absent: rales, wheezes - Cardiovascular Cardiovascular exam: Present: +S1, +S2, systolic murmur (3/6 CHACE). Absent: JVD - GI/Abdominal GI/Abdominal exam: Present: soft, no peritoneal signs. Absent: tenderness - Extremities Exam Extremities exam: Present: warm, radial pulses palpable and symetrical. Absent : pedal edema Additional comments: Nick LE dry, erythematous, signs of chronic venous stasis. Left foot prior amputated 2nd toe. 3rd toe with blistering anterior aspect 18mm x 12mm, now bandaged cdi to forefoot and heel. NVI. No drainage Internal Medicine: Result - Labs CBC & Chem 7: 05/12/16 04:46 05/12/16 04:46 - ABG Interpretation ABG results: PT/INR, D-dimer PT 11.5 Seconds (9.4-12.1) 05/11/16 14:54 Consult Discharge Plan - Plan Additional Instructions: Follow-up with Dr. Clay on May 18 in podiatry clinic for dressing change Referrals: Cruzito Clay DPM [Partnered Physician] - 05/18/16 4:00 pm Prescriptions: Cephalexin [Keflex] 500 mg PO QID #40 capsule <Chinedu Garza - Last Filed: 05/13/16 17:29> - Constitutional Vitals: Temp Pulse Resp BP Pulse Ox 98.2 F 62 18 143/74 93 L 05/13/16 11:01 05/13/16 11:01 05/13/16 11:05 05/13/16 11:01 05/13/16 11:05 Internal Medicine: Result - Labs CBC & Chem 7: 05/12/16 04:46 05/12/16 04:46 - ABG Interpretation ABG results: PT/INR, D-dimer PT 11.5 Seconds (9.4-12.1) 05/11/16 14:54 - Attending Attestation I examined this patient and my medical decision-making was reviewed with the DAY CARE ASSISTANT/PA/Advanced Practice Nurse/Resident Physician. I agree with the documented findings, disposition and treatment plan as described. Patient for discharge as per primary team.
--- NOTE | 2016-05-13 12:42 | Discharge Summary ---
Date of Encounter: 05/13/16 Time of Encounter: 12:40 - Discharge Diagnosis (1) Necrotic toes Priority: Primary Status: Acute - Discharge Medications Prescriptions: Cephalexin [Keflex] 500 mg PO QID #40 capsule Home Medications: Fenofibrate [Tricor] 145 mg PO DAILY 01/16/15 [History] Allopurinol [Zyloprim 300 MG] 300 mg PO HS 02/12/15 [History] Aspirin 81 mg PO DAILY 02/12/15 [History] Budesonide/Formoterol 160/4.5 [Symbicort] 1 puff IH BIDR 02/12/15 [History] Citalopram [CeleXA] 40 mg PO HS 02/12/15 [History] ClonazePAM [Klonopin] 0.5 mg PO BID PRN 02/12/15 [History] Gabapentin [Neurontin] 800 mg PO TID 02/12/15 [History] Insulin NPH Hum/Reg Insulin Hm [Novolin 70-30 100 Unit/ml Vial] 50 unit SQ QAM 02/12/15 [History] LORazepam [Ativan] 1 mg PO HS 02/12/15 [History] Lisinopril [Zestril] 40 mg PO BID 02/12/15 [History] Loratadine [Claritin] 10 mg PO DAILY 02/12/15 [History] Lovastatin [Mevacor] 40 mg PO BID 02/12/15 [History] Metformin [Glucophage] 1,000 mg PO BID 02/12/15 [History] Metoprolol XL (24 HR) Succ [Toprol XL] 25 mg PO DAILY 02/12/15 [History] Omeprazole [Prilosec] 40 mg PO HS 02/12/15 [History] Oxybutynin [Ditropan] 5 mg PO BID 02/12/15 [History] Oxycodone HCl/Acetaminophen [Percocet 5-325 mg Tablet] 1 each PO Q12H PRN [History] Insulin NPH Hum/Reg Insulin Hm [Novolin 70-30 100 Unit/ml Vial] 40 unit SQ HS [History] Tamsulosin [Flomax] 0.4 mg PO DAILY 04/12/15 [History] Albuterol Sulfate [Proair Hfa] 2 puff IH Q4H PRN 04/13/16 [History] Hydrochlorothiazide 12.5 mg PO DAILY 04/13/16 [History] Ibuprofen [Motrin] 800 mg PO BID PRN 04/13/16 [History] Theophylline Anhydrous [Theophylline] 400 mg PO DAILY 04/13/16 [History] Cephalexin [Keflex] 500 mg PO QID #40 capsule 05/13/16 [Rx] Allergies/Adverse Reactions: Allergies Sulfa (Sulfonamide Antibiotics) Allergy (Severe, Verified 04/13/16 12:01) Itching, hives, rash Latex, Natural Rubber Allergy (Verified 04/13/16 12:01) See Comments Tape Allergy (Severe, Uncoded 01/16/15 11:52) Pulls skin off Pt states all tape but cloth tape Labs on day of discharge: Labs from last 24 hours 05/13/16 05/13/16 05/12/16 10:59 06:48 20:38 POC Glucose 301 H 217 H 179 H Preliminary micro results at discharge 05/11/16 14:54 Blood Culture - Preliminary Peripheral Venipuncture No growth. 05/11/16 14:54 Blood Culture - Preliminary Peripheral Venipuncture No growth. - Additional Comments Patient underwent amputation of the digit #3 left foot for necrosis/gangrene no complications ensued Date of admission: 05/11/16 10:53 Primary care physician: Luanne Spann Consults: 05/11/16 13:13 Consult to Physician [CONS] Routine Consulting Provider: Hospitalist Alanis Reason for Consult: Medical mgt of DM and co-morbidites Time Notified: 13:13 Call Completed: Yes 05/12/16 07:39 Consult to Proof Load Mechanic [CONS] Routine Reason for SW Consult: dischage planning. Wound care? Discharging clinician: Cruzito Clay Anticipated date of discharge: 05/13/16 - Patient Status Disposition: Home, Self-Care Condition: Fair Functional capacity at discharge: uses cane/walker Overall status at discharge: patient is progressing back to baseline - Discharge Instructions Follow Up With: Cruzito Clay DPM [Partnered Physician] - Quinn Lew MD [Primary Care Provider] - Additional Instructions: Follow-up with Dr. Clay on May 18 in podiatry clinic for dressing change - Diet and Activity Activity: ambulate only with your walker Diet: diabetic diet - Hospital Course Hospital course: Mr. Best is a 75 year old male presented 72 hours ago and the necrotic toe # 3. Cultures were positive for MSSA. Because of the significant amount of necrosis of the toe amputation was the single best option. Patient proceeded to the operating room after being medically optimized and underwent amputation of the digit without difficulty or complication. Please see operative note patient's dressing was changed today to be sent home in good condition on by mouth antibiotics. He is to keep the dressing dry clean and intact. Time spent discussing smoking cessation with patient: more than 10 minutes ( Discussed the significant complications and ramifications of continued use of tobacco) - Time Spent with Patient Total time spent providing and/or coordinating discharge services: Less than 30 minutes Specific discharge activities: Homebound. Keep dressing dry clean and intact. Use walker and postop shoe. Avoid use of tobacco.
== END 2016-05-13 16:31 | disposition home or self-care (01) | DRG 256 ==
LOC: 3ANU 10:53 → SUATTDRO 10:53
PROVIDERS: ADMIT Podiatrist Foot Surgery; ATTEND Internal Medicine

== ENCOUNTER 2018-11-25 20:21 | Inpatient (IN) ==
--- NOTE | 2018-11-25 21:51 | Emergency Department Note ---
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 Patient states that he said this started turning black approximately a week ago said they slowly been hurting getting worse. Does have very extensive podiatry history where he has had multiple toes removed x-ray follows now at [place] used to follow here with Dr. Clay. Does have history of peripheral vascular disease as well as neuropathic feet secondary to poorly controlled diabetes. Patient states that he does not have any feelings are not painful. But noticed a blackened gotten worse. Otherwise there is no other complaints at this time. Was seen by podiatry [place] who recommended coming here for possible amputation. Pain Scale: 9 - Related Data Home Medications Medication Instructions Recorded Confirmed Fenofibrate [Tricor] 145 mg PO DAILY 01/16/15 07/20/18 Allopurinol [Zyloprim 300 MG] 300 mg PO HS 02/12/15 07/20/18 Aspirin 81 mg PO DAILY 02/12/15 07/20/18 Gabapentin [Neurontin] 800 mg PO TID 02/12/15 07/20/18 Insulin NPH Hum/Reg Insulin Hm 50 unit SQ QAM 02/12/15 07/20/18 [Novolin 70-30 100 Unit/ml Vial] LORazepam [Ativan] 0.5 - 1 mg PO HS 02/12/15 07/20/18 metFORMIN [Glucophage] 1,000 mg PO BID 02/12/15 07/20/18 Insulin NPH Hum/Reg Insulin Hm 40 unit SQ HS 03/15/15 07/20/18 [Novolin 70-30 100 Unit/ml Vial] Albuterol Sulfate [Proair Hfa] 2 puff IH Q4H PRN 04/13/16 07/20/18 Ibuprofen [Motrin] 800 mg PO BID PRN 04/13/16 07/20/18 Theophylline Anhydrous 400 mg PO DAILY 04/13/16 07/20/18 [Theophylline] Atorvastatin [Lipitor] 40 mg PO HS 02/18/17 07/20/18 DULoxetine [Cymbalta] 30 mg PO DAILY 02/18/17 07/20/18 Fluticasone/Salmeterol [Advair 1 puff IH BID 02/18/17 07/20/18 250-50 Diskus] Furosemide [Lasix] 40 mg PO DAILY 02/18/17 07/20/18 Glimepiride [Amaryl] 2 mg PO 0800 02/18/17 07/20/18 Losartan Potassium [Cozaar] 100 mg PO DAILY 02/18/17 07/20/18 Potassium Chloride [Klor-Con 10] 10 meq PO BID 02/18/17 07/20/18 hydroCHLOROthiazide 12.5 mg PO DAILY 10/28/17 07/20/18 [Hydrochlorothiazide] Previous Rx's Medication Instructions Recorded HYDROcodone/Acet 5/325 mg [[place] 1 tab PO Q6H PRN 7 Days #28 tab 10/28/17 5-325 mg] Benzonatate 200 mg PO TID PRN #21 capsule 05/11/18 Albuterol Neb [Proventil Neb] 2.5 mg IH Q4HR PRN #20 vial.neb 07/05/18 Levofloxacin [Levaquin] 750 mg PO DAILY #5 tablet 07/05/18 PredniSONE [Deltasone] 3 tab PO DAILY #9 tablet 07/05/18 Allergies Allergy/AdvReac Type Severity Reaction Status Date / Time Sulfa (Sulfonamide Allergy Severe Itching, Verified 11/25/18 20:34 Antibiotics) hives, rash Latex, Natural Rubber Allergy Rash Verified 11/25/18 20:34 Tape Allergy Severe Pulls skin Uncoded 11/25/18 20:34 off All systems ED: reviewed and negative except as stated. Review of Systems: As Per HPI Past Medical History - Past Medical History Attestation: Yes The following information was validated with the patient. Source: patient Medical history: Reports: CHF, COPD, diabetes, hyperlipidemia, hypertension Surgical history: Reports: angioplasty/stent, appendectomy, cancer surgery, herniorrhaphy, prostatectomy Psychiatric history: Reports: anxiety, depression - Social History Smoking Status: Current every day smoker Smokeless Tobacco Status: No Alcohol use: Reports: none Drug use: Reports: none Physical Exam - General Limitations: no limitations General appearance: alert - Head Head exam: atraumatic, normocephalic, normal inspection - Eye Eye exam: Present: normal appearance, PERRL, EOMI - ENT ENT exam: normal exam, normal oropharynx, mucous membranes moist - Neck Neck exam: Present: normal inspection, full ROM, trachea midline - Chest Chest inspection: Present: normal inspection, symmetric chest wall rise - Respiratory Respiratory exam: Present: normal lung sounds bilaterally - Cardiovascular Cardiovascular exam: Present: regular rate, normal rhythm, normal heart sounds - Abdominal Exam Abdominal exam: Present: soft, Non-Tender. Absent: tenderness, distention, guarding, rebound, rigidity - Expanded Lower Extremity Exam Knee exam: Present: normal inspection, full ROM Lower leg exam: Present: normal inspection, full ROM Foot/toe exam: Present: other (Necrotic black tissue covering the entire heel of the pad bilaterally. Pedal pulses via Doppler are present. Does have mild swelling and erythema around the entire foot. No tenderness while palpating as he does not have any feeling down there chronically.). Absent: tenderness Neurovascular/Tendon exam: Present: normal capillary refill. Absent: pulse deficit, motor deficit, sensory deficit, tendon deficit - Neurological Exam Neurological exam: Present: alert, oriented X3 - Skin Skin exam: Present: warm, dry, intact, normal color Course Course Narrative: We have basic labs including CBC BMP ESR CRP will also get blood cultures. We will speak with podiatry for further evaluation. - Consultations Consultation #1: Spoke with on-call podiatry Dr. Clay who recommended admission was okay with vancomycin and Zosyn for antibiotic treatment. His that he will see him in consultation tomorrow with possible vascular surgery consultation as well. Time: 21:53 Vital Signs Temperature 99 F 11/25/18 20:29 Pulse Rate 97 11/25/18 20:29 Respiratory Rate 18 11/25/18 20:29 Blood Pressure 144/68 11/25/18 20:29 O2 Sat by Pulse Oximetry 94 11/25/18 20:29 Temperature 99 F 11/25/18 20:29 Pulse Rate 88 11/25/18 21:53 Respiratory Rate 24 11/25/18 21:53 Blood Pressure 148/64 11/25/18 21:53 O2 Sat by Pulse Oximetry 100 11/25/18 21:53 Oxygen Delivery Oxygen Delivery Nasal Cannula Medical Decision Making - MDM Narrative Medical decision making narrative: Labs are all within normal is except for leukocytosis and elevated CRP and ESR which are expected based on the osteomyelitis based on x-rays of the feet bilaterally. Spoke with Dr. Clay who recommended admission starting on vancomycin and Zosyn. These were started in the emergency department. Spoke with the hospitalist Dr. Dilan Hayes the patient to their service. Patient did have pulses to both feet pedal he found on Doppler. Patient is admitted in stable condition. Foot X-Ray 11/25/18 20:57 IMPRESSION: Ulceration seen along the plantar aspect of the heel. Questionable osteolysis involving the subjacent calcaneus, raising the possibility of osteomyelitis. D/ / Fco Sethi MD / Fco Sethi MD Interpreting Provider: Fco Sethi MD - Medical Records Medical records reviewed: Yes I reviewed the patient's medical records. - Lab Data Lab results reviewed: Yes I reviewed the patient's lab results. Result diagrams: 11/25/18 21:51 11/25/18 21:51 Lab Results 11/25/18 11/25/18 11/25/18 Range/Units 21:51 21:51 21:51 WBC 21.9 H (4.3-11.1) K/mcL RBC 3.96 L (4.19-5.50) M/mcL Hgb 11.4 L (12.9-16.9) g/dL Hct 36.2 L (37.5-50.1) % MCV 91.4 (83.0-100.0) fL MCH 28.8 (28.0-33.3) pg MCHC 31.5 L (31.6-35.5) g/dL RDW 15.2 H (11.5-14.5) % Plt Count 263 (140-400) K/mcL MPV 10.3 (9.4-12.4) fL Immature Gran % 1.0 (0-4) % Seg Neutrophils % 91.4 % Lymphocytes % 3.4 % Monocytes % 3.8 % Eosinophils % 0.2 % Basophils % 0.2 % Neutrophils # 20.0 H (1.6-8.9) K/mcL Lymphocytes # 0.7 (0.6-4.6) K/mcL Monocytes # 0.8 (0.0-1.3) K/mcL Eosinophils # 0.1 (0.0-0.6) K/mcL Basophils # 0.0 (0.0-0.2) K/mcL ESR 101 H (0-10) mm/hr Sodium 128 L (136-145) mEq/L Potassium 4.6 (3.5-5.1) mEq/L Chloride 95 L (98-107) mEq/L Carbon Dioxide 24 (23-29) mEq/L BUN 14 (8-23) mg/dL Creatinine 1.11 (0.70-1.30) mg/dL Est GFR ( Amer) > 60 (> 60) Est GFR (Non-Af Amer) > 60 (> 60) BUN/Creatinine Ratio 13 (6-26) Glucose 391 H (70-105) mg/dL Calculated Osmolality 283 (280-300) Lactic Acid (0.5-2.2) mmol/L Calcium 8.7 (8.6-10.3) mg/dL C-Reactive Protein > 300 H (Less than 10) mg/L 11/25/18 Range/Units 21:51 WBC (4.3-11.1) K/mcL RBC (4.19-5.50) M/mcL Hgb (12.9-16.9) g/dL Hct (37.5-50.1) % MCV (83.0-100.0) fL MCH (28.0-33.3) pg MCHC (31.6-35.5) g/dL RDW (11.5-14.5) % Plt Count (140-400) K/mcL MPV (9.4-12.4) fL Immature Gran % (0-4) % Seg Neutrophils % % Lymphocytes % % Monocytes % % Eosinophils % % Basophils % % Neutrophils # (1.6-8.9) K/mcL Lymphocytes # (0.6-4.6) K/mcL Monocytes # (0.0-1.3) K/mcL Eosinophils # (0.0-0.6) K/mcL Basophils # (0.0-0.2) K/mcL ESR (0-10) mm/hr Sodium (136-145) mEq/L Potassium (3.5-5.1) mEq/L Chloride (98-107) mEq/L Carbon Dioxide (23-29) mEq/L BUN (8-23) mg/dL Creatinine (0.70-1.30) mg/dL Est GFR ( Amer) (> 60) Est GFR (Non-Af Amer) (> 60) BUN/Creatinine Ratio (6-26) Glucose (70-105) mg/dL Calculated Osmolality (280-300) Lactic Acid 2.0 (0.5-2.2) mmol/L Calcium (8.6-10.3) mg/dL C-Reactive Protein (Less than 10) mg/L - Radiology Data Radiology results reviewed: Yes I reviewed the patient's radiology results.
[2018-11-25 22:15] LABS: Basophils % 0.2 %; Eosinophils # 0.1 K/mcL (0.0-0.6); Eosinophils % 0.2 %; Hematocrit 36.2 % (37.5-50.1); Hemoglobin 11.4 g/dL (12.9-16.9); Lymphocytes # 0.7 K/mcL (0.6-4.6); Lymphocytes % 3.4 %; Mean Corpuscular HGB Conc 31.5 g/dL (31.6-35.5); Mean Corpuscular Hemoglobin 28.8 pg (28.0-33.3); Mean Corpuscular Volume 91.4 fL (83.0-100.0); Mean Platelet Volume 10.3 fL (9.4-12.4); Monocytes # 0.8 K/mcL (0.0-1.3); Monocytes % 3.8 %; Platelet Count 263 K/mcL (140-400); Red Blood Count 3.96 M/mcL (4.19-5.50); Red Cell Distribution Width 15.2 % (11.5-14.5); Segmented Neutrophils % 91.4 %; White Blood Count 21.9 K/mcL (4.3-11.1)
--- NOTE | 2018-11-25 22:36 | Emergency Department Note ---
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 Disposition: Admitted As Inpatient Condition: Fair Time of Disposition: 22:50 General Adult HPI - General Chief complaint: ED General Medical Stated complaint: Feet Turning Black Time Seen by Provider: 11/25/18 20:41 Source: patient, family Mode of arrival: ambulatory Limitations: no limitations - History of Present Illness Pain Scale: 9 - Related Data Home Medications Medication Instructions Recorded Confirmed Fenofibrate [Tricor] 145 mg PO DAILY 01/16/15 07/20/18 Allopurinol [Zyloprim 300 MG] 300 mg PO HS 02/12/15 07/20/18 Aspirin 81 mg PO DAILY 02/12/15 07/20/18 Gabapentin [Neurontin] 800 mg PO TID 02/12/15 07/20/18 Insulin NPH Hum/Reg Insulin Hm 50 unit SQ QAM 02/12/15 07/20/18 [Novolin 70-30 100 Unit/ml Vial] LORazepam [Ativan] 0.5 - 1 mg PO HS 02/12/15 07/20/18 metFORMIN [Glucophage] 1,000 mg PO BID 02/12/15 07/20/18 Insulin NPH Hum/Reg Insulin Hm 40 unit SQ HS 03/15/15 07/20/18 [Novolin 70-30 100 Unit/ml Vial] Albuterol Sulfate [Proair Hfa] 2 puff IH Q4H PRN 04/13/16 07/20/18 Ibuprofen [Motrin] 800 mg PO BID PRN 04/13/16 07/20/18 Theophylline Anhydrous 400 mg PO DAILY 04/13/16 07/20/18 [Theophylline] Atorvastatin [Lipitor] 40 mg PO HS 02/18/17 07/20/18 DULoxetine [Cymbalta] 30 mg PO DAILY 02/18/17 07/20/18 Fluticasone/Salmeterol [Advair 1 puff IH BID 02/18/17 07/20/18 250-50 Diskus] Furosemide [Lasix] 40 mg PO DAILY 02/18/17 07/20/18 Glimepiride [Amaryl] 2 mg PO 0800 02/18/17 07/20/18 Losartan Potassium [Cozaar] 100 mg PO DAILY 02/18/17 07/20/18 Potassium Chloride [Klor-Con 10] 10 meq PO BID 02/18/17 07/20/18 hydroCHLOROthiazide 12.5 mg PO DAILY 10/28/17 07/20/18 [Hydrochlorothiazide] Previous Rx's Medication Instructions Recorded HYDROcodone/Acet 5/325 mg [[place] 1 tab PO Q6H PRN 7 Days #28 tab 10/28/17 5-325 mg] Benzonatate 200 mg PO TID PRN #21 capsule 05/11/18 Albuterol Neb [Proventil Neb] 2.5 mg IH Q4HR PRN #20 vial.neb 07/05/18 Levofloxacin [Levaquin] 750 mg PO DAILY #5 tablet 07/05/18 PredniSONE [Deltasone] 3 tab PO DAILY #9 tablet 07/05/18 Allergies Allergy/AdvReac Type Severity Reaction Status Date / Time Sulfa (Sulfonamide Allergy Severe Itching, Verified 11/25/18 20:34 Antibiotics) hives, rash Latex, Natural Rubber Allergy Rash Verified 11/25/18 20:34 Tape Allergy Severe Pulls skin Uncoded 11/25/18 20:34 off Past Medical History - Past Medical History Medical history: Reports: CHF, COPD, diabetes, hyperlipidemia, hypertension Surgical history: Reports: angioplasty/stent, appendectomy, cancer surgery, herniorrhaphy, prostatectomy Psychiatric history: Reports: anxiety, depression - Social History Smoking Status: Current every day smoker Smokeless Tobacco Status: No Alcohol use: Reports: none Drug use: Reports: none Physical Exam - General Limitations: no limitations General appearance: alert Course Vital Signs Temperature 99 F 11/25/18 20:29 Pulse Rate 97 11/25/18 20:29 Respiratory Rate 18 11/25/18 20:29 Blood Pressure 144/68 11/25/18 20:29 O2 Sat by Pulse Oximetry 94 11/25/18 20:29 Temperature 100.4 F H 11/25/18 23:52 Pulse Rate 95 11/25/18 23:52 Respiratory Rate 20 11/25/18 23:52 Blood Pressure 149/75 11/25/18 23:52 O2 Sat by Pulse Oximetry 100 11/25/18 23:52 Oxygen Delivery Oxygen Delivery Nasal Cannula Medical Decision Making - Lab Data Result diagrams: 11/25/18 21:51 11/25/18 21:51 Lab Results 11/25/18 11/25/18 11/25/18 Range/Units 21:51 21:51 21:51 WBC 21.9 H (4.3-11.1) K/mcL RBC 3.96 L (4.19-5.50) M/mcL Hgb 11.4 L (12.9-16.9) g/dL Hct 36.2 L (37.5-50.1) % MCV 91.4 (83.0-100.0) fL MCH 28.8 (28.0-33.3) pg MCHC 31.5 L (31.6-35.5) g/dL RDW 15.2 H (11.5-14.5) % Plt Count 263 (140-400) K/mcL MPV 10.3 (9.4-12.4) fL Immature Gran % 1.0 (0-4) % Seg Neutrophils % 91.4 % Lymphocytes % 3.4 % Monocytes % 3.8 % Eosinophils % 0.2 % Basophils % 0.2 % Neutrophils # 20.0 H (1.6-8.9) K/mcL Lymphocytes # 0.7 (0.6-4.6) K/mcL Monocytes # 0.8 (0.0-1.3) K/mcL Eosinophils # 0.1 (0.0-0.6) K/mcL Basophils # 0.0 (0.0-0.2) K/mcL ESR 101 H (0-10) mm/hr Sodium 128 L (136-145) mEq/L Potassium 4.6 (3.5-5.1) mEq/L Chloride 95 L (98-107) mEq/L Carbon Dioxide 24 (23-29) mEq/L BUN 14 (8-23) mg/dL Creatinine 1.11 (0.70-1.30) mg/dL Est GFR ( Amer) > 60 (> 60) Est GFR (Non-Af Amer) > 60 (> 60) BUN/Creatinine Ratio 13 (6-26) Glucose 391 H (70-105) mg/dL Calculated Osmolality 283 (280-300) Lactic Acid (0.5-2.2) mmol/L Calcium 8.7 (8.6-10.3) mg/dL C-Reactive Protein > 300 H (Less than 10) mg/L 11/25/18 Range/Units 21:51 WBC (4.3-11.1) K/mcL RBC (4.19-5.50) M/mcL Hgb (12.9-16.9) g/dL Hct (37.5-50.1) % MCV (83.0-100.0) fL MCH (28.0-33.3) pg MCHC (31.6-35.5) g/dL RDW (11.5-14.5) % Plt Count (140-400) K/mcL MPV (9.4-12.4) fL Immature Gran % (0-4) % Seg Neutrophils % % Lymphocytes % % Monocytes % % Eosinophils % % Basophils % % Neutrophils # (1.6-8.9) K/mcL Lymphocytes # (0.6-4.6) K/mcL Monocytes # (0.0-1.3) K/mcL Eosinophils # (0.0-0.6) K/mcL Basophils # (0.0-0.2) K/mcL ESR (0-10) mm/hr Sodium (136-145) mEq/L Potassium (3.5-5.1) mEq/L Chloride (98-107) mEq/L Carbon Dioxide (23-29) mEq/L BUN (8-23) mg/dL Creatinine (0.70-1.30) mg/dL Est GFR ( Amer) (> 60) Est GFR (Non-Af Amer) (> 60) BUN/Creatinine Ratio (6-26) Glucose (70-105) mg/dL Calculated Osmolality (280-300) Lactic Acid 2.0 (0.5-2.2) mmol/L Calcium (8.6-10.3) mg/dL C-Reactive Protein (Less than 10) mg/L Attestation Statement - Attestation Attestation: I examined this patient and my medical decision-making was reviewed with the Resident Physician. I agree with the documented findings, disposition and treatment plan as described except to the extent set forth below. Patient is 77-year-old gentleman with history of osteo-mellitus of the left heel that presents again with chief complaint of necrotic bilateral heels. Patient reports that he saw a cathode washer at another facility and they recommended that they come to our facility for possible a dictation of bilateral feet Physical exam patient is awake alert bilateral heels are black and necrotic with a malodorous smell Medical decision management plan is to obtain laboratory studies and x-rays and the plan is to admit the patient to the hospital case was discussed with podiatry they are aware of the patient and will consult on the patient the patient was given vancomycin and Zosyn in the ER.
[2018-11-25 22:41] LABS: BUN/Creatinine Ratio 13 (6-26); Blood Urea Nitrogen 14 mg/dL (8-23); C-Reactive Protein > 300 mg/L (Less than 10); Calcium 8.7 mg/dL (8.6-10.3); Carbon Dioxide 24 mEq/L (23-29); Chloride 95 mEq/L (98-107); Glucose 391 mg/dL (70-105); Osmolality,Calculated 283 (280-300); Potassium 4.6 mEq/L (3.5-5.1); Sodium 128 mEq/L (136-145); eGFR For African Americans > 60 (> 60); eGFR For Non-African Americans > 60 (> 60)
[2018-11-25] MEDS ORDERED: Piperacillin/Tazobactam 3.375 GM in 0.9 % Sodium Chloride Mini Bag 100 ML IVPB ONE (22:49)
--- NOTE | 2018-11-25 23:56 | Internal Med History&Physical ---
Date of Encounter: 11/25/18 Time of Encounter: 23:56 Internal Medicine - H&P: HPI Chief complaint: Bilateral necrotic heels. History of present illness: Mr. Best is a 77 year old male with past medical history of severe peripheral vascular disease, diabetic peripheral neuropathy hypertension, diabetes mellitus, congestive heart failure and COPD who is currently cared for by [facility], and supposed to be DNR comfort care due COPD and congestive heart failure, however he was referred by a local podiatry physician for further evaluation and management of bilateral necrotic heels. As per the ER staff, The patient establish with Dr. Clay requested that patient will be admitted to the hospitalist service and they will see the patie nt in a.m. for consultation. Since patient admission we will refocus his hospice we discussed with the ER staff the hospice situation and they stated that patient is DNR comfort care except for antibiotic treatment for possible infection . The patient was started in empiric antibiotic with vancomycin and Zosyn. Imaging studies were suggestive of osteomyelitis. The patient at bedside change his mind about his CODE STATUS and he requested to be full code. Past Med Surg Social Fam HX - Past Medical History Medical history: CHF, COPD, diabetes, hyperlipidemia, hypertension Additional medical history: 25% heart functioning Psychiatric history: anxiety, depression - Past Surgical History Surgical History: angioplasty/stent, appendectomy, cancer surgery, herniorrhaphy, prostatectomy Additional surgical history: colonoscopy,heart cath,lung bx,lt foot,rt elbow,rt wrist, - Social History Smoking Status: Current every day smoker Smokeless Tobacco Status: No Alcohol use: none Drug use: none - Family History Father Living Status: Hx Family Cardiac Disorders: Yes Hx Family Respiratory Disorders: Yes Hx Family Cancer: Yes (Lung and Colon Cancer) Hx Family GI Disorders: Yes (Colon Cancer) Hx Family Endocrine Disorder: Yes (Diabetes) Hx Family Neuromuscular Disorders: No Hx Family Neurologic Disorders: No Hx Family HEENT Disorders: No Hx Family Autoimmune Disorders: No Mother Living Status: Cause of : "Old age" Internal Medicine - H&P: Meds Fenofibrate [Tricor] 145 mg PO DAILY 01/16/15 [History] Aspirin 81 mg PO DAILY 02/12/15 [History] Gabapentin [Neurontin] 600 mg PO BID 02/12/15 [History] Insulin NPH Hum/Reg Insulin Hm [Novolin 70-30 100 Unit/ml Vial] 50 unit SQ HS 02/12/15 [History] metFORMIN [Glucophage] 1,000 mg PO BID 02/12/15 [History] Insulin NPH Hum/Reg Insulin Hm [Novolin 70-30 100 Unit/ml Vial] 40 unit SQ BID 03/15/15 [History] Atorvastatin [Lipitor] 40 mg PO HS 02/18/17 [History] DULoxetine [Cymbalta] 30 mg PO DAILY 02/18/17 [History] Glimepiride [Amaryl] 4 mg PO DAILY 02/18/17 [History] Potassium Chloride [Klor-Con 10] 20 meq PO BID 02/18/17 [History] Albuterol Neb [Proventil Neb] 90 mcg IH Q6HR PRN 11/26/18 [History] Apixaban [Eliquis] 5 mg PO BID 11/26/18 [History] Budesonide/Formoterol 160/4.5 [Symbicort 160/4.5] 2 puff IH BIDR 11/26/18 [History] Cholecalciferol (Vitamin D3) [Vitamin D] 4,000 unit PO TID 11/26/18 [History] Doxycycline Hyclate [Morgidox] 100 mg PO BID 11/26/18 [History] Furosemide [Lasix] 40 mg PO TID 11/26/18 [History] Gabapentin [Neurontin] 800 mg PO TID 11/26/18 [History] Insulin NPH/REG 70/30 [HumuLIN 70/30 VIAL] 60 unit SQ QAM 11/26/18 [History] Ipratropium/Albuterol Sulfate [Iprat-Albut 0.5-3(2.5) mg/3 ml] 3 ml IH Q6HR 11/26/18 [History] Levalbuterol HCl [Xopenex Concentrate] 1.25 mg IH Q4HR PRN 11/26/18 [History] Levalbuterol HCl [Xopenex Concentrate] 1.25 mg IH Q6HR 11/26/18 [History] Magnesium Oxide [Magnesium] 400 mg PO BID 11/26/18 [History] Metoprolol Succinate [Toprol Xl] 50 mg PO DAILY 11/26/18 [History] Morphine Oral CONC [Roxanol] 0.25 ml PO Q4HR 11/26/18 [History] Oxybutynin Chloride [Ditropan XL] 5 mg PO BID 11/26/18 [History] Oxycodone HCl/Acetaminophen [Percocet 5-325 mg Tablet] 1 each PO Q6HR PRN 11/26/18 [History] Valsartan [Diovan] 160 mg PO DAILY 11/26/18 [History] diazePAM [Valium] 5 mg PO BID 11/26/18 [History] Allergy/AdvReac Type Severity Reaction Status Date / Time Sulfa (Sulfonamide Allergy Severe Itching, Verified 11/25/18 20:34 Antibiotics) hives, rash Latex, Natural Rubber Allergy Rash Verified 11/25/18 20:34 Tape Allergy Severe Pulls skin Uncoded 11/25/18 20:34 off All Systems PM: A 10-system review of systems was performed and is negative for pertinent findings except as documented above in the HPI. - Constitutional Vitals: Temp Pulse Resp BP Pulse Ox 100.4 F H 95 20 149/75 100 11/25/18 23:52 11/25/18 23:52 11/25/18 23:52 11/25/18 23:52 11/25/18 23:52 Exam: . - Neck Neck exam general surgery: Present: supple, trachea midline. Absent: lymphadenopathy - Respiratory Respiratory exam: Present: rhonchi. Absent: accessory muscle use, rales - Cardiovascular Cardiovascular exam: Present: RRR, +S1, +S2. Absent: diastolic murmur, gallop, rubs, systolic murmur - GI/Abdominal GI/Abdominal exam: Present: normal bowel sounds, soft, no peritoneal signs. Absent: distended, tenderness - Extremities Exam Extremities exam: Present: warm. Absent: calf tenderness, cyanotic, pedal edema Additional comments: Bilateral lower extremity ulcers with skin discoloration. Internal Med - H&P Results - Labs CBC & Chem 7: 11/27/18 05:09 11/27/18 05:09 Labs: Short CBC 11/25/18 Range/Units 21:51 WBC 21.9 H (4.3-11.1) K/mcL Hgb 11.4 L (12.9-16.9) g/dL Hct 36.2 L (37.5-50.1) % Plt Count 263 (140-400) K/mcL Neutrophils # 20.0 H (1.6-8.9) K/mcL BMP 11/25/18 21:51 Sodium 128 L Potassium 4.6 Chloride 95 L Carbon Dioxide 24 BUN 14 Creatinine 1.11 Glucose 391 H Calcium 8.7 - Impressions ITS Impressions Foot X-Ray 11/25/18 20:57 IMPRESSION: Ulceration seen along the plantar aspect of the heel. Questionable osteolysis involving the subjacent calcaneus, raising the possibility of osteomyelitis. D/ / Fco Sethi MD / Fco Sethi MD Interpreting Provider: Fco Sethi MD Foot X-Ray 11/25/18 20:57 IMPRESSION: No bony abnormality D/ / Armen Li MD / Armen Li MD Interpreting Provider: Armen Li MD - Assessment and Plan (1) Foot ulcer with necrosis of bone Current Visit: Yes Status: Acute Assessment and plan: Podiatry was consulted for further evaluation and management, patient is nothing by mouth after midnight for possible surgical intervention. Qualifiers: Laterality: unspecified laterality Qualified Code(s): L97.504 - Non- pressure chronic ulcer of other part of unspecified foot with necrosis of bone (2) HTN (hypertension) Current Visit: Yes Status: Chronic Assessment and plan: We will continue home medications Qualifiers: Hypertension type: essential hypertension Qualified Code(s): I10 - Essential (primary) hypertension (3) Insulin dependent diabetes mellitus Current Visit: Yes Status: Chronic Assessment and plan: We will start the patient and insulin sliding scale with moderate coverage. (4) Peripheral vascular disease due to secondary diabetes Current Visit: Yes Status: Chronic (5) Hyponatremia Current Visit: Yes Status: Acute Assessment and plan: Most likely hypovolemic hyponatremia in the setting of decreased oral intake, will start patient on IV hydration with isotonic saline, repeat BMP in a.m. and obtain further workup including urine osmolality and urine electrolytes, a sodium is not improving with IV hydration. (6) Code status needs review Current Visit: Yes Status: Chronic Assessment and plan: As per paperwork patient is DNR, comfort care, however at bedside patient wished to be a full code. Patient CODE STATUS and review of goals of care need to be discussed. We will sign out to day team for further evaluation. - Time Spent With Patient Total time spent is greater than 50% in coordination of care (as documented) at patient's floor/unit and/or counseling patient:
[2018-11-26] MEDS ORDERED: Ondansetron 4 MG/2 ML VIAL IVP PRN (00:39)
[2018-11-26] MEDS ORDERED: Naloxone 0.4 MG/ML INJ IVP PRN (00:39)
[2018-11-26] MEDS ORDERED: D5% in Water 1,000 ML IVC PRN ×2 (01:16→06:01)
[2018-11-26] MEDS ORDERED: *HR* Dextrose 50 % in Water (Syg) 50 ML SYRINGE IVP PRN ×2 (01:16→06:01)
[2018-11-26] MEDS ORDERED: Dextrose Gel 15 GM/37.5 ML TUBE PO PRN ×4 (01:16→06:01)
[2018-11-26] MEDS: 0.9 % Sodium Chloride 1,000 ML IVC SCH ×2 (02:42→11:10)
[2018-11-26 02:49] LABS: Basophils % 0.2 %; Eosinophils # 0.1 K/mcL (0.0-0.6); Eosinophils % 0.4 %; Hematocrit 34.5 % (37.5-50.1); Hemoglobin 10.9 g/dL (12.9-16.9); Immature Granulocytes % 0.8 % (0-4); Lymphocytes % 4.7 %; Mean Corpuscular HGB Conc 31.6 g/dL (31.6-35.5); Mean Corpuscular Hemoglobin 28.8 pg (28.0-33.3); Mean Platelet Volume 10.4 fL (9.4-12.4); Monocytes # 0.8 K/mcL (0.0-1.3); Monocytes % 3.8 %; Neutrophils # 18.3 K/mcL (1.6-8.9); Platelet Count 260 K/mcL (140-400); Red Blood Count 3.79 M/mcL (4.19-5.50); Red Cell Distribution Width 15.3 % (11.5-14.5); Segmented Neutrophils % 90.1 %; White Blood Count 20.3 K/mcL (4.3-11.1)
[2018-11-26 02:51] LABS: INR 1.3; Prothrombin Time 14.3 Seconds (9.4-12.1)
[2018-11-26 02:54] LABS: Activated Partial Thrombo Time 28.5 Seconds (26.0-36.0)
[2018-11-26 03:05] LABS: Alanine Aminotransferase 12 Units/L (7-52); Albumin 2.4 g/dL (3.5-5.7); Albumin/Globulin Ratio 0.6 (1.1-2.2); Alkaline Phosphatase 104 Units/L (34-104); Aspartate Amino Transferase 13 Units/L (13-39); BUN/Creatinine Ratio 14 (6-26); Bilirubin,Total 0.5 mg/dL (0.3-1.0); Blood Urea Nitrogen 16 mg/dL (8-23); Calcium 8.5 mg/dL (8.6-10.3); Carbon Dioxide 27 mEq/L (23-29); Chloride 96 mEq/L (98-107); Chol/HDL Ratio 3.5 (0-4.9); Cholesterol 117 mg/dL (< 200); Globulin 3.9 g/dL (2.4-3.5); Glucose 407 mg/dL (70-105); HDL Cholesterol 33 mg/dL (40-59); LDL Cholesterol,Calculated 58 mg/dL (0-99); Magnesium 1.6 mg/dL (1.6-2.6); Osmolality,Calculated 288 (280-300); Phosphorous 3.2 mg/dL (2.7-4.5); Potassium 4.4 mEq/L (3.5-5.1); Sodium 130 mEq/L (136-145); Total Protein 6.3 g/dL (6.4-8.9); Triglycerides 131 mg/dL (< 150); eGFR For African Americans > 60 (> 60); eGFR For Non-African Americans > 60 (> 60)
[2018-11-26] MEDS: Insulin LISPRO 300 UNITS/3 ML VIAL SQ SCH ×8 (06:15→23:17)
[2018-11-26 06:58] LABS: Bilirubin,Urine Small (Negative); Blood,Urine Small (Negative); Clarity,Urine Cloudy (Clear); Color,Urine Yellow (Yellow); Glucose,Urine (UA) >=1000 mg/dL (Normal); Ketones,Urine Negative (Negative); Leukocyte Esterase,Urine Negative (Negative); Nitrite,Urine Negative (Negative); Protein,Urine >=300 mg/dL (Neg-Trace); Specific Gravity,Urine > 1.030 (1.010-1.025); Urobilinogen,Urine Normal (Normal)
[2018-11-26 07:00] LABS: Bacteria,Urine None Seen per hpf (None-Few); Hyaline Casts,Urine None Seen per lpf (None-Few); Squamous Epithelial Cell,Urine Many per lpf (None-Few)
[2018-11-26] MEDS ORDERED: Ipratropium/Albuterol Neb 3 ML IH PRN (07:07)
[2018-11-26] MEDS ORDERED: Acetaminophen IV 1,000 MG/100 ML INFUS..BTL IVPB ONE (07:18)
[2018-11-26 07:30] LABS: Estimated Average Glucose 266 mg/dl
[2018-11-26] MEDS: Piperacillin/Tazobactam 3.375 GM in 0.9 % Sodium Chloride Mini Bag 100 ML IVPB SCH ×3 (08:15→23:11)
--- NOTE | 2018-11-26 09:46 | Internal Med Progress Note ---
Hospitalist Progress Note - Encounter Date of Encounter: 11/26/18 Time of Encounter: 09:46 - Subjective Interval History: Patient seen and examined. He is not in acute distress but he complains of pain in both lower extremities. - Exam Vitals: Temp Pulse Resp BP Pulse Ox 38.5 C H 66 26 148/71 100 11/26/18 06:47 11/26/18 06:47 11/26/18 06:47 11/26/18 06:47 11/26/18 07:52 Exam: GENERAL: Ill looking patient. Not in distress. Alert and Oriented HEENT: EOMI, PERRLA MOUTH: Moist mucosa NECK:No JVD, No lymph nodes. CHEST AND LUNGS: Normal breath sounds, no wheezes or crackles HEART: S1 and S2 normal, no murmurs ABDOMEN: Soft, nontender, no organomegaly SKIN and EXTREMITIES: Bilateral lower extremity ulcers. Full thickness on heels of both feet with skin discoloration and an offensive smell. NEUROLOGICAL: Normal cognition - Assessment and Plan (1) Foot ulcer with necrosis of bone Current Visit: Yes Status: Acute Assessment and Plan: Podiatry on board Patient will go to surgery for debridement tomorrow Continue antibiotics and pain medications (2) HTN (hypertension) Current Visit: Yes Status: Chronic Assessment and Plan: On home meds (3) Insulin dependent diabetes mellitus Current Visit: Yes Status: Chronic Assessment and Plan: On insulin sliding scale with moderate coverage A1c at 10.9 Accu-Cheks before meals at bedtime (4) Peripheral vascular disease due to secondary diabetes Current Visit: Yes Status: Chronic Assessment and Plan: Patient has weak pulses bilaterally in lower extremities He will have debridement done by podiatry for necrotic heel ulcers Vascular surgery consult may be needed (5) DVT prophylaxis Current Visit: No Status: Acute Assessment and Plan: Patient has been on Eliquis but will be held for surgery tomorrow (6) Hyponatremia Current Visit: Yes Status: Acute Assessment and Plan: Most likely hypovolemic hyponatremia in the setting of decreased oral intake, On IV normal saline (7) Code status needs review Current Visit: Yes Status: Chronic Assessment and Plan: As per paperwork patient is DNR, comfort care, however at bedside patient wished to be a full code. Patient CODE STATUS and review of goals of care need to be discussed. We will sign out to day team for further evaluation. - Time Spent with Patient Total time spent is greater than 50% in coordination of care (as documented) at patient's floor/unit and/or counseling patient: Internal Medicine: Result - Labs CBC & Chem 7: 11/26/18 01:57 11/26/18 01:57 Labs: Short CBC 11/25/18 11/26/18 Range/Units 21:51 01:57 WBC 21.9 H 20.3 H (4.3-11.1) K/mcL Hgb 11.4 L 10.9 L (12.9-16.9) g/dL Hct 36.2 L 34.5 L (37.5-50.1) % Plt Count 263 260 (140-400) K/mcL Neutrophils # 20.0 H 18.3 H (1.6-8.9) K/mcL BMP 11/25/18 11/26/18 21:51 01:57 Sodium 128 L 130 L Potassium 4.6 4.4 Chloride 95 L 96 L Carbon Dioxide 24 27 BUN 14 16 Creatinine 1.11 1.15 Glucose 391 H 407 H Calcium 8.7 8.5 L Liver Function 11/26/18 Range/Units 01:57 Total Bilirubin 0.5 (0.3-1.0) mg/dL AST 13 (13-39) Units/L ALT 12 (7-52) Units/L Alkaline Phosphatase 104 (34-104) Units/L Albumin 2.4 L (3.5-5.7) g/dL Urine 11/26/18 Range/Units 06:11 Urine Color Yellow (Yellow) Urine Clarity Cloudy A (Clear) Urine pH 6.0 (5.0-8.0) pH Units Ur Specific [place] > 1.030 H (1.010-1.025) Urine Protein >=300 H (Neg-Trace) mg/dL Urine Glucose (UA) >=1000 H (Normal) mg/dL - ABG Interpretation ABG results: PT/INR, D-dimer PT 14.3 Seconds (9.4-12.1) H 11/26/18 01:57 - Impressions Impressions Foot X-Ray 11/25/18 20:57 IMPRESSION: Ulceration seen along the plantar aspect of the heel. Questionable osteolysis involving the subjacent calcaneus, raising the possibility of osteomyelitis. D/ / Fco Sethi MD / Fco Sethi MD Interpreting Provider: Fco Sethi MD Foot X-Ray 11/25/18 20:57 IMPRESSION: No bony abnormality D/ / Armen Li MD / Armen Li MD Interpreting Provider: Armen Li MD Chest X-Ray 11/26/18 02:22 IMPRESSION: 1. Increased bibasilar airspace opacities, potentially atelectasis, pneumonia, or aspiration superimposed upon previously seen scarring. 2. Pulmonary vascular congestion with suspected interstitial edema, suggesting congestive heart failure given mild moderate cardiomegaly. D/ / Quinn Koch MD / Quinn Koch MD Interpreting Provider: Quinn Koch MD Consult Discharge Plan - Plan Referrals: David Jerez [Primary Care Provider] - (1) Foot ulcer with necrosis of bone Qualifiers: Laterality: unspecified laterality Qualified Code(s): L97.504 - Non-pressure chronic ulcer of other part of unspecified foot with necrosis of bone (2) HTN (hypertension) Qualifiers: Hypertension type: essential hypertension Qualified Code(s): I10 - Essential (primary) hypertension
--- NOTE | 2018-11-26 16:33 | Podiatry Consult Note ---
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 Plan: #1: Patient will need formal incision and drainage and debridement of all necrotic tissue in attempt for limb salvage bilaterally. #2: Incision and drainage as necessary to prevent progression of sepsis #3: Risks versus benefits as well as alternatives to surgical intervention were discussed with the patient in terms understand. Risks include but are not limited to further infection bleeding pain loss of foot toe leg life. Need for further surgery. Patient understands that this is a high risk procedure given his overall comorbidities. No guarantees or assurances were made as to the ability to salvage water both legs. He is high risk for bila teral amputation. Patient voices comprehension agrees to plan of care. Patient ample opportunity ask questions about planned procedure under local anesthetic and sedation. Those questions are answered to his satisfaction. We will proceed expectantly. He is to be scheduled for formal incision and drainage tomorrow morning. Qualifiers: Diabetic foot ulcer location: heel Diabetes mellitus type: type 1 Laterality: left Non-pressure ulcer stage: unspecified non-pressure ulcer stag e Qualified Code(s): E10.621 - Type 1 diabetes mellitus with foot ulcer; L97.429 - Non-pressure chronic ulcer of left heel and midfoot with unspecified severity History of Present Illness Chief complaint: Necrotic ulcerations both heels HPI: Mr. Best is a 77 year old male, was transferred to the [facility] from another institution for significant infection of both heels. Patient is known to me. He was lost to follow-up approximately 2-3 years ago. Patient states that he is unaware of how long these wounds have been present on both heels. He is estimating that these wounds have been present for at least 3 weeks. He is known to me. He is undergone amputations of toes #234 left foot to heal uneventfully. Long history of peripheral vascular disease diabetes with neuropathy, arthritis and, multiple comorbidities. He is presently alert and oriented is able to answer direct questions appropriately. Patient presented with fever chills nausea fatigue malaise the ED. He has been admitted and presently on intravenous antibiotics. We have a foul fetid smelling wounds of both heels. Most recent chest x-ray reveals possible early pneumonia/ atelectasis/ opacities. Because of the significant localized infection necrosis and possible gas formation of the left heel likely need incision and drainage to prevent overt sepsis. We long discussion as to whether or not ei ther leg is salvageable given his medical history and present predicament. Past Med Surg Social Fam HX - Past Medical History Medical history: CHF, COPD, diabetes, hyperlipidemia, hypertension Additional medical history: 25% heart functioning Psychiatric history: anxiety, depression - Past Surgical History Surgical History: pacemaker Additional surgical history: colonoscopy,heart cath,lung bx,lt foot,rt elbow,rt wrist, - Social History Smoking Status: Current every day smoker Packs per day: 1 Smokeless Tobacco Status: No Alcohol use: occasionally Drug use: none - Family History Father Living Status: Hx Family Cardiac Disorders: Yes Hx Family Respiratory Disorders: Yes Hx Family Cancer: Yes (Lung and Colon Cancer) Hx Family GI Disorders: Yes (Colon Cancer) Hx Family Endocrine Disorder: Yes (Diabetes) Hx Family Neuromuscular Disorders: No Hx Family Neurologic Disorders: No Hx Family HEENT Disorders: No Hx Family Autoimmune Disorders: No Mother Living Status: Cause of : "Old age" Medications and Allergies Fenofibrate [Tricor] 145 mg PO DAILY 01/16/15 [History] Aspirin 81 mg PO DAILY 02/12/15 [History] Gabapentin [Neurontin] 600 mg PO BID 02/12/15 [History] Insulin NPH Hum/Reg Insulin Hm [Novolin 70-30 100 Unit/ml Vial] 50 unit SQ HS 02/12/15 [History] metFORMIN [Glucophage] 1,000 mg PO BID 02/12/15 [History] Insulin NPH Hum/Reg Insulin Hm [Novolin 70-30 100 Unit/ml Vial] 40 unit SQ BID 03/15/15 [History] Atorvastatin [Lipitor] 40 mg PO HS 02/18/17 [History] DULoxetine [Cymbalta] 30 mg PO DAILY 02/18/17 [History] Glimepiride [Amaryl] 4 mg PO DAILY 02/18/17 [History] Potassium Chloride [Klor-Con 10] 20 meq PO BID 02/18/17 [History] Albuterol Neb [Proventil Neb] 90 mcg IH Q6HR PRN 11/26/18 [History] Apixaban [Eliquis] 5 mg PO BID 11/26/18 [History] Budesonide/Formoterol 160/4.5 [Symbicort 160/4.5] 2 puff IH BIDR 11/26/18 [History] Cholecalciferol (Vitamin D3) [Vitamin D] 4,000 unit PO TID 11/26/18 [History] Doxycycline Hyclate [Morgidox] 100 mg PO BID 11/26/18 [History] Furosemide [Lasix] 40 mg PO TID 11/26/18 [History] Gabapentin [Neurontin] 800 mg PO TID 11/26/18 [History] Insulin NPH/REG 70/30 [HumuLIN 70/30 VIAL] 60 unit SQ QAM 11/26/18 [History] Ipratropium/Albuterol Sulfate [Iprat-Albut 0.5-3(2.5) mg/3 ml] 3 ml IH Q6HR 11/26/18 [History] Levalbuterol HCl [Xopenex Concentrate] 1.25 mg IH Q4HR PRN 11/26/18 [History] Levalbuterol HCl [Xopenex Concentrate] 1.25 mg IH Q6HR 11/26/18 [History] Magnesium Oxide [Magnesium] 400 mg PO BID 11/26/18 [History] Metoprolol Succinate [Toprol Xl] 50 mg PO DAILY 11/26/18 [History] Morphine Oral CONC [Roxanol] 0.25 ml PO Q4HR 11/26/18 [History] Oxybutynin Chloride [Ditropan XL] 5 mg PO BID 11/26/18 [History] Oxycodone HCl/Acetaminophen [Percocet 5-325 mg Tablet] 1 each PO Q6HR PRN 11/26/18 [History] Valsartan [Diovan] 160 mg PO DAILY 11/26/18 [History] diazePAM [Valium] 5 mg PO BID 11/26/18 [History] Allergy/AdvReac Type Severity Reaction Status Date / Time Sulfa (Sulfonamide Allergy Severe Itching, Verified 11/25/18 20:34 Antibiotics) hives, rash Latex, Natural Rubber Allergy Rash Verified 11/25/18 20:34 Tape Allergy Severe Pulls skin Uncoded 11/25/18 20:34 off All Systems Reviewed: The remainder of the systems were reviewed and are negative Physical Exam - Constitutional Vitals: Temp Pulse Resp BP Pulse Ox 97.5 F L 65 14 107/65 96 11/26/18 14:31 11/26/18 14:31 11/26/18 14:31 11/26/18 14:31 11/26/18 14:31 General appearance: disheveled, mild distress, obese - Neurological Exam Neurological exam IM: Present: DTR, Clonus, Spasticity Additional comments: DTR Achilles and patellar equal symmetrical 0/4. No spasticity or flaccidity of either ankle. Loss of protective sensation epicritic sensation 2 point dis crimination light touch and vibration from toes to tibia. Babinski's absent clonus is negative. - Skin Skin Exam: Present: ulceration, trophic changes to skin, pallor on elevation, rubor on dependency Skin Temperature: Skin temperature is cool to warm from toes to tibia tubercle Additional comments: Ulceration full-thickness unstageable right foot plantar aspect of the heel measures 7.5 cm in length 6.5 cm in width. The left heel measures 8.5 cm in length 7.5 cm in width again unstageable full-thickness eschar bilaterally. There is maceration surrounding the wound bilaterally. These are Compazine the plantar aspect of both heels. We observe a hematoma of toe #5 left foot of the nailbed is still intact. Skin with multiple superficial abrasions from the longitudinal arch to the knees bilaterally. We observe trophic changes of the skin stasis dermatitis with poor skin turgor bilaterally from toes to tibia - Vascular Capillary Refill: Sluggish Lower Extremity Vascular: pulse deficit, sensory deficit Right Popliteal: Weak Left Popliteal: Weak Right Dorsalis Pedis: Absent Left Dorsalis Pedis: Absent Right Posterior Tibialis: Absent Left Posterior Tibialis: Absent - Musculoskeletal Additional Comments: Amputation of toe #234 left foot healed resolved remote Results - Labs Result Diagrams: 11/26/18 01:57 11/26/18 01:57 Labs: Abnormal lab results WBC 20.3 K/mcL (4.3-11.1) H 11/26/18 01:57 RBC 3.79 M/mcL (4.19-5.50) L 11/26/18 01:57 Hgb 10.9 g/dL (12.9-16.9) L 11/26/18 01:57 Hct 34.5 % (37.5-50.1) L 11/26/18 01:57 MCHC 31.5 g/dL (31.6-35.5) L 11/25/18 21:51 RDW 15.3 % (11.5-14.5) H 11/26/18 01:57 Neutrophils # 18.3 K/mcL (1.6-8.9) H 11/26/18 01:57 ESR 101 mm/hr (0-10) H 11/25/18 21:51 PT 14.3 Seconds (9.4-12.1) H 11/26/18 01:57 Sodium 130 mEq/L (136-145) L 11/26/18 01:57 Chloride 96 mEq/L (98-107) L 11/26/18 01:57 Glucose 407 mg/dL (70-105) H 11/26/18 01:57 POC Glucose 188 mg/dL (70-99) H 11/26/18 12:46 Hemoglobin A1c 10.9 % (-5.6) H 11/26/18 01:57 Calcium 8.5 mg/dL (8.6-10.3) L 11/26/18 01:57 C-Reactive Protein > 300 mg/L (Less than 10) H 11/25/18 21:51 Serum Total Protein 6.3 g/dL (6.4-8.9) L 11/26/18 01:57 Albumin 2.4 g/dL (3.5-5.7) L 11/26/18 01:57 Globulin 3.9 g/dL (2.4-3.5) H 11/26/18 01:57 Albumin/Globulin Ratio 0.6 (1.1-2.2) L 11/26/18 01:57 HDL Cholesterol 33 mg/dL (40-59) L 11/26/18 01:57 Urine Clarity Cloudy (Clear) A 11/26/18 06:11 Ur Specific [place] > 1.030 (1.010-1.025) H 11/26/18 06:11 Urine Protein >=300 mg/dL (Neg-Trace) H 11/26/18 06:11 Urine Glucose (UA) >=1000 mg/dL (Normal) H 11/26/18 06:11 Urine Blood Small (Negative) H 11/26/18 06:11 Urine Bilirubin Small (Negative) H 11/26/18 06:11 Urine Microscopic RBC 5-15 per hpf (0-3) H 11/26/18 06:11 Urine Microscopic WBC 5-15 per hpf (0-3) H 11/26/18 06:11 Ur Squamous Epith Cells Many per lpf (None-Few) H 11/26/18 06:11 H & H 11/25/18 11/26/18 Range/Units 21:51 01:57 Hgb 11.4 L 10.9 L (12.9-16.9) g/dL Hct 36.2 L 34.5 L (37.5-50.1) % All other labs normal. - Diagnostic results Ankle/Foot x-ray: image reviewed Consult Discharge Plan - Plan Referrals: David Jreez [Primary Care Provider] -
[2018-11-26] MEDS: Gabapentin 300 MG CAPSULE PO SCH (21:15)
[2018-11-27 05:50] LABS: ABG Base Excess 1 mEq/L (-2 to 3); ABG HCO3 26 mEq/L (21-27); ABG Oxygen Saturation 94 % (95-98); ABG PCO2 41 mmHg (35-45); ABG PO2 73 mmHg (85-104); ABG TCO2 27 mEq/L (20-26)
--- NOTE | 2018-11-27 05:55 | Event Note ---
Date of Encounter: 11/27/18 Time of Encounter: 05:31 Alerted by pts. nurse MAYE Worrell that the patient was having tremors, severe difficulty in breathing w/RRs in the 30s. Pt. has hx of COPD and is supposed to have surgery on his feet today. Last Echocardiogram was in 2016 which showed LVEF of 60-65%. Normal LV chamber size and function. Mild concentric left ventricular hypertrophy. Mild left ventricular diastolic dysfunction. Normal right ventricular structure and function. Moderately calcified, trileaflet aortic valve with reduced excursion. Mild to moderate aortic regurgitation. Mild aortic stenosis. Mean gradient 12 mmHg. No evidence of pulmonary hypertension. Patient reports his EF is now 25%. Stat echocardiogram ordered to confirm EF for surgical clearance. CXR on 11/26/18 shows increased bibasilar air space opacities, potentially atelectasis, pneumonia, or aspiration superimposed on previously seen scarring. Pulmonary vascular congestion with suspected interstitial edema, suggesting congestive heart failure given mild to moderate cardiomegaly. Stat ABG ordered which showed pCO2 of 41 and pO2 of 73. BiPAP ordered. Breathing tx ordered. 1V Portable CXR ordered stat to re-assess lung volumes and status. 125 mg IVP Solu-Medrol ordered once for pts. COPD and current dyspnea. Stat lactic acid ordered. Paged Dr. Clay to discuss the patient and alert him of the pts. new respiratory distress. Patient is currently meeting sepsis criteria w/WBC of 15.4 this a.m., HR >90, RR >20. Patient was also febrile yesterday. Dr. Clay's concern is for patient stability for surgery versus XR imagaing suspicious for osteomyelitis and possible gas formation of left plantar calcaneus and current sepsis criteria. Pt. was scheduled for surgery today at 08:00. Dr. Clay to move surgery until a discussion regarding this pt. takes place with the a.m. Hospitalist, Dr. Woodward. A.M. Hospitalist (Dr. Woodward) to review pts. CXR, Echocardiogram, and assess patient's respiratory status and call Dr. Clay to discuss the patient's status this morning. In addition to this, clarification is needed regarding this pts. CODE STATUS. Pt. was previously under Hospice care and is now FULL CODE at the pts. request on admission. CXR this morning shows no interval change of mild infiltrate at the right lung base and interval resolution of airspace disease at the left lung base. Nurse instructed to continue monitoring the pt. very closely and alert myself or Dr. Woodward of any adverse changes immediately.
[2018-11-27 06:06] LABS: Basophils % 0.2 %; Eosinophils # 0.1 K/mcL (0.0-0.6); Eosinophils % 0.6 %; Hematocrit 33.4 % (37.5-50.1); Hemoglobin 10.2 g/dL (12.9-16.9); Immature Granulocytes % 0.8 % (0-4); Lymphocytes # 1.4 K/mcL (0.6-4.6); Mean Corpuscular HGB Conc 30.5 g/dL (31.6-35.5); Mean Corpuscular Hemoglobin 28.8 pg (28.0-33.3); Mean Corpuscular Volume 94.4 fL (83.0-100.0); Mean Platelet Volume 10.3 fL (9.4-12.4); Monocytes # 0.9 K/mcL (0.0-1.3); Monocytes % 5.7 %; Neutrophils # 12.9 K/mcL (1.6-8.9); Platelet Count 239 K/mcL (140-400); Red Blood Count 3.54 M/mcL (4.19-5.50); Red Cell Distribution Width 15.3 % (11.5-14.5); Segmented Neutrophils % 83.7 %; White Blood Count 15.4 K/mcL (4.3-11.1)
[2018-11-27] MEDS: Insulin LISPRO 300 UNITS/3 ML VIAL SQ SCH ×5 (06:11→20:09)
[2018-11-27] MEDS ORDERED: methylPREDNISolone 125 MG/2 ML VIAL IVP ONE (06:24)
[2018-11-27 06:28] LABS: BUN/Creatinine Ratio 20 (6-26); Blood Urea Nitrogen 18 mg/dL (8-23); Calcium 8.4 mg/dL (8.6-10.3); Carbon Dioxide 26 mEq/L (23-29); Chloride 102 mEq/L (98-107); Glucose 260 mg/dL (70-105); Osmolality,Calculated 287 (280-300); Potassium 4.5 mEq/L (3.5-5.1); Sodium 133 mEq/L (136-145); eGFR For African Americans > 60 (> 60); eGFR For Non-African Americans > 60 (> 60)
[2018-11-27] MEDS ORDERED: Furosemide 40 MG/4 ML VIAL IVP ONE (06:39)
[2018-11-27] MEDS ORDERED: Furosemide 40 MG/4 ML VIAL ONE (06:44)
[2018-11-27] MEDS ORDERED: hydrALAZINE 10 MG TABLET PO PRN (07:13)
[2018-11-27] MEDS ORDERED: Furosemide 20 MG/2 ML VIAL IVP ONE (07:56)
--- NOTE | 2018-11-27 08:37 | Internal Med Progress Note ---
Hospitalist Progress Note - Encounter Date of Encounter: 11/27/18 Time of Encounter: 08:33 - Subjective Interval History: Patient became short of breath last night requiring BIPAP. I had a family meeting with patient, his sister, daughter, brother-in law, son-in law and leno sewer. I explained code status to patient and family and patient and he states that he would like life sustaining and prolonging interventions to continue but does not want CPR in the event his heart stops. His Code status will be changed to [id number] - Exam Vitals: Temp Pulse Resp BP Pulse Ox 36.8 C 102 24 203/99 98 11/27/18 06:29 11/27/18 06:29 11/27/18 06:29 11/27/18 06:29 11/27/18 06:29 Exam: GENERAL: Patient is in moderate respiratory distress. On BiPAP HEENT: EOMI, PERRLA MOUTH: Moist mucosa` NECK:No JVD, No lymph nodes. CHEST AND LUNGS: Bibasal crackles and some wheezes HEART: S1 and S2 normal, no murmurs ABDOMEN: Soft, nontender, no organomegaly SKIN: Normal color, no rahses, no lesions EXTREMITIES: Both feet covered in dressing. Brownish discharge in the left foot dressing with an offensive smell NEUROLOGICAL: Normal cognition, normal motor and sensory exam. - Assessment and Plan (1) Acute respiratory failure with hypoxia Current Visit: Yes Status: Acute Assessment and Plan: Patient became short of breath and desaturated last night ABG showed a PO2 of 73 Patient currently saturating well on BiPAP He has received 60 mg of IV Lasix this morning IV Solu-Medrol and breathing treatments Will monitor (2) Foot ulcer with necrosis of bone Current Visit: Yes Status: Acute Assessment and Plan: Plan was for podiatry to send for surgery at 8 AM this morning. Surgery will be held until patient is clinically stable Continue antibiotics (3) Code status needs review Current Visit: Yes Status: Chronic Assessment and Plan: Had a family meeting with patient, his family members and his leno sewer Patient's current decision is to be DNR [facility] CODE STATUS form has been filled and status has been changed (4) HTN (hypertension) Current Visit: Yes Status: Chronic Assessment and Plan: Systolic blood pressure was as high as 203 this morning Currently at 154 Home antihypertensives have been resumed IV Lasix twice a day started When necessary hydralazine (5) Insulin dependent diabetes mellitus Current Visit: Yes Status: Chronic Assessment and Plan: Accu-Cheks before meals at bedtime Last reading was 207 Continue sliding scale Will resume NPH dosing at home (6) Peripheral vascular disease due to secondary diabetes Current Visit: Yes Status: Chronic Assessment and Plan: Patient has weak pulses bilaterally in lower extremities Surgery for necrotic heels may be complicated by poor blood flow Vascular surgery may be consulted if surgery is performed (7) Hyponatremia Current Visit: Yes Status: Acute Assessment and Plan: Sodium 133 morning Gradually increasing We will monitor - Time Spent with Patient Total time spent is greater than 50% in coordination of care (as documented) at patient's floor/unit and/or counseling patient: Internal Medicine: Result - Labs CBC & Chem 7: 11/27/18 05:09 11/27/18 05:09 Labs: Short CBC 11/27/18 Range/Units 05:09 WBC 15.4 H (4.3-11.1) K/mcL Hgb 10.2 L (12.9-16.9) g/dL Hct 33.4 L (37.5-50.1) % Plt Count 239 (140-400) K/mcL Neutrophils # 12.9 H (1.6-8.9) K/mcL BMP 11/27/18 05:09 Sodium 133 L Potassium 4.5 Chloride 102 Carbon Dioxide 26 BUN 18 Creatinine 0.88 Glucose 260 H Calcium 8.4 L - ABG Interpretation ABG results: ABG ABG pH 7.40 pH Units (7.32-7.45) 11/27/18 05:47 ABG pCO2 41 mmHg (35-45) 11/27/18 05:47 ABG pO2 73 mmHg (85-104) L 11/27/18 05:47 ABG O2 Saturation 94 % (95-98) L 11/27/18 05:47 PT/INR, D-dimer PT 14.3 Seconds (9.4-12.1) H 11/26/18 01:57 - Impressions Impressions Chest X-Ray 11/27/18 05:39 IMPRESSION: No interval change of mild infiltrate at the right lung base. Interval resolution of airspace disease at the left lung base D/ / Shirley Coto MD / Shirley Coto MD Interpreting Provider: Shirley Coto MD Consult Discharge Plan - Plan Referrals: David Jerez [Primary Care Provider] - (2) Foot ulcer with necrosis of bone Qualifiers: Laterality: unspecified laterality Qualified Code(s): L97.504 - Non-pressure chronic ulcer of other part of unspecified foot with necrosis of bone (4) HTN (hypertension) Qualifiers: Hypertension type: essential hypertension Qualified Code(s): I10 - Essential (primary) hypertension
[2018-11-27] MEDS ORDERED: Furosemide 40 MG TABLET PO SCH (09:00)
[2018-11-27] MEDS ORDERED: Ipratropium/Albuterol Neb 3 ML IH SCH (10:00)
[2018-11-27] MEDS: Budesonide/Formoterol 160/4.5 1 PUFF INH IH SCH ×2 (10:46→20:49)
[2018-11-27] MEDS: Valsartan 160 MG TABLET PO SCH (10:46)
[2018-11-27] MEDS: *HR* Heparin 5,000 UNIT/ML VIAL SQ SCH ×3 (10:47→20:11)
[2018-11-27] MEDS: Gabapentin 300 MG CAPSULE PO SCH (10:48)
[2018-11-27] MEDS: Fenofibrate 54 MG TABLET PO SCH (10:48)
[2018-11-27] MEDS: Metoprolol XL (24 HR) Succ 50 MG TAB.ER.24H PO SCH (10:48)
[2018-11-27] MEDS: Gabapentin 400 MG CAPSULE PO SCH ×3 (10:48→20:11)
[2018-11-27] MEDS: Cholecalciferol (D-3) 1,000 UNIT (25MCG) TABLET PO SCH (10:49)
[2018-11-27] MEDS: Piperacillin/Tazobactam 3.375 GM in 0.9 % Sodium Chloride Mini Bag 100 ML IVPB SCH ×2 (10:59→18:34)
[2018-11-27] MEDS: Insulin NPH 100 UNIT/ML (x5UNIT) SQ SCH ×2 (11:00→20:08)
--- NOTE | 2018-11-27 16:51 | Podiatry Progress Note ---
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 Plan: #1: Patient will need formal incision and drainage and debridement of all necrotic tissue in attempt for limb salvage bilaterally. #2: Incision and drainage as necessary to prevent progression of sepsis #3: Risks versus benefits as well as alternatives to surgical intervention were discussed with the patient in terms understand. Risks include but are not limited to further infection bleeding pain loss of foot toe leg life. Need for further surgery. Patient understands that this is a high risk procedure given his overall comorbidities. No guarantees or assurances were made as to the ability to salvage water both legs. He is high risk for sybil ateral amputation. Patient voices comprehension agrees to plan of care. Patient ample opportunity ask questions about planned procedure under local anesthetic and sedation. Those questions are answered to his satisfaction. We will proceed expectantly. He is to be scheduled for formal incision and drainage tomorrow morning. Assessment: #1 ongoing diabetic foot ulcers full-thickness unstageable as initially evaluated no changes as far as either foot is concerned at the present time Plan: #1: We will defer to medicine service to determine appropriate timing of surgical intervention after discussion the patient and family members. Qualifiers: Diabetic foot ulcer location: heel Diabetes mellitus type: type 1 Laterality: left Non-pressure ulcer stage: unspecified non-pressure ulcer stage Qualified Code(s): E10.621 - Type 1 diabetes mellitus with foot ulcer; L97.429 - Non-pressure chronic ulcer of left heel and midfoot with unspecified severity Subjective Principal diagnosis: Necrotic ulcers both heels Interval history: I was contacted this morning by internal medicine service stating the patient had decompensated and now has required BiPAP and further assistance medically and that presently would not be appropriate candidate for any type of surgical intervention at this time because the risks outweigh the benefits presently. Long discussion with internal medicine ensued about risk versus benefit given his present regression. Discussion with family members and referral to internal medicine for further discussion and management of his COPD and cardiac status prior to surgical intervention. Objective - Vital Signs Vital Signs: Vital Signs Temp Pulse Resp BP Pulse Ox 11/27/18 14:26 97.8 F 99 28 174/82 96 11/27/18 10:54 98.0 F 88 28 171/82 95 11/27/18 10:46 18 96 11/27/18 08:00 98.9 F 54 34 154/74 99 11/27/18 06:29 98.2 F 102 24 203/99 98 11/27/18 05:55 24 98 11/27/18 05:40 99.1 F 108 24 169/77 96 11/26/18 23:21 98.9 F 95 11/26/18 21:51 24 97 11/26/18 18:55 98.3 F 15 143/74 80 Intake and Output 11/27/18 11/27/18 11/27/18 07:59 15:59 23:59 Intake Total 100 / 100 Output Total 0 / 200 200 / 200 Balance 100 / -100 -200 / -100 Intake: IV Fluids 100 / 100 Zosyn 3.375 GM In 0.9 % Sodium 100 / 100 Chloride (Mini-Bag +) 100 ML @ 25 mls/hr IVPB Q8HR [facility] Rx#: [id number] Output: Urine 0 / 200 200 / 200 Other: Meal NPO # Voids 1 Weight 104.3 kg Blood Glucose* 371 Patient Weight 11/27/18 23:59 Weight 104.3 kg - Exam Exam: No changes necrotic heel ulcers bilaterally - Lab Result Diagrams: 11/27/18 05:09 11/27/18 05:09 Labs: Abnormal lab results WBC 15.4 K/mcL (4.3-11.1) H 11/27/18 05:09 RBC 3.54 M/mcL (4.19-5.50) L 11/27/18 05:09 Hgb 10.2 g/dL (12.9-16.9) L 11/27/18 05:09 Hct 33.4 % (37.5-50.1) L 11/27/18 05:09 MCHC 30.5 g/dL (31.6-35.5) L 11/27/18 05:09 RDW 15.3 % (11.5-14.5) H 11/27/18 05:09 Neutrophils # 12.9 K/mcL (1.6-8.9) H 11/27/18 05:09 ESR 101 mm/hr (0-10) H 11/25/18 21:51 PT 14.3 Seconds (9.4-12.1) H 11/26/18 01:57 ABG pO2 73 mmHg (85-104) L 11/27/18 05:47 ABG Total CO2 27 mEq/L (20-26) H 11/27/18 05:47 ABG O2 Saturation 94 % (95-98) L 11/27/18 05:47 Sodium 133 mEq/L (136-145) L 11/27/18 05:09 Chloride 96 mEq/L (98-107) L 11/26/18 01:57 Glucose 260 mg/dL (70-105) H 11/27/18 05:09 POC Glucose 268 mg/dL (70-99) H 11/26/18 20:26 Hemoglobin A1c 10.9 % (-5.6) H 11/26/18 01:57 Calcium 8.4 mg/dL (8.6-10.3) L 11/27/18 05:09 C-Reactive Protein > 300 mg/L (Less than 10) H 11/25/18 21:51 Serum Total Protein 6.3 g/dL (6.4-8.9) L 11/26/18 01:57 Albumin 2.4 g/dL (3.5-5.7) L 11/26/18 01:57 Globulin 3.9 g/dL (2.4-3.5) H 11/26/18 01:57 Albumin/Globulin Ratio 0.6 (1.1-2.2) L 11/26/18 01:57 HDL Cholesterol 33 mg/dL (40-59) L 11/26/18 01:57 Urine Clarity Cloudy (Clear) A 11/26/18 06:11 Ur Specific [place] > 1.030 (1.010-1.025) H 11/26/18 06:11 Urine Protein >=300 mg/dL (Neg-Trace) H 11/26/18 06:11 Urine Glucose (UA) >=1000 mg/dL (Normal) H 11/26/18 06:11 Urine Blood Small (Negative) H 11/26/18 06:11 Urine Bilirubin Small (Negative) H 11/26/18 06:11 Urine Microscopic RBC 5-15 per hpf (0-3) H 11/26/18 06:11 Urine Microscopic WBC 5-15 per hpf (0-3) H 11/26/18 06:11 Ur Squamous Epith Cells Many per lpf (None-Few) H 11/26/18 06:11 Vancomycin Trough 14 mcg/mL (5-10) H 11/27/18 14:04 Microbiology, Last 48 Hours 11/25/18 21:51 Blood Culture - Preliminary Peripheral Venipuncture Culture is incubating and being continuously monitored for growth. Final report to follow. 11/25/18 21:51 Blood Culture - Preliminary Peripheral Venipuncture Culture is incubating and being continuously monitored for growth. Final report to follow. Consult Discharge Plan - Plan Referrals: David Jerez [Primary Care Provider] -
[2018-11-27] MEDS: Aspirin 81 MG TAB.CHEW PO SCH (18:32)
[2018-11-27] MEDS: *HR* OxyCODONE/APAP 5/325 TABLET PO PRN (18:43)
[2018-11-27] MEDS: Furosemide 20 MG/2 ML VIAL IVP SCH (20:10)
[2018-11-27] MEDS: diazePAM 10 MG TABLET PO SCH (20:10)
[2018-11-27] MEDS ORDERED: Insulin DETEMIR 100 UNIT/ML X5UNITS SQ ONE (22:19)
[2018-11-28] MEDS: Piperacillin/Tazobactam 3.375 GM in 0.9 % Sodium Chloride Mini Bag 100 ML IVPB SCH ×3 (00:48→17:30)
[2018-11-28] MEDS ORDERED: Insulin DETEMIR 100 UNIT/ML X5UNITS SQ ONE (02:11)
[2018-11-28] MEDS: *HR* Heparin 5,000 UNIT/ML VIAL SQ SCH (03:44)
[2018-11-28 05:21] LABS: Basophils % 0.1 %; Eosinophils % 0.1 %; Hematocrit 33.1 % (37.5-50.1); Hemoglobin 10.2 g/dL (12.9-16.9); Immature Granulocytes % 0.7 % (0-4); Lymphocytes % 6.3 %; Mean Corpuscular HGB Conc 30.8 g/dL (31.6-35.5); Mean Corpuscular Hemoglobin 28.3 pg (28.0-33.3); Mean Corpuscular Volume 91.7 fL (83.0-100.0); Mean Platelet Volume 10.5 fL (9.4-12.4); Monocytes # 0.7 K/mcL (0.0-1.3); Monocytes % 4.8 %; Neutrophils # 13.2 K/mcL (1.6-8.9); Platelet Count 262 K/mcL (140-400); Red Blood Count 3.61 M/mcL (4.19-5.50)
[2018-11-28 05:36] LABS: BUN/Creatinine Ratio 30 (6-26); Blood Urea Nitrogen 33 mg/dL (8-23); Calcium 8.4 mg/dL (8.6-10.3); Carbon Dioxide 25 mEq/L (23-29); Chloride 98 mEq/L (98-107); Glucose 437 mg/dL (70-105); Osmolality,Calculated 302 (280-300); Potassium 4.1 mEq/L (3.5-5.1); Sodium 133 mEq/L (136-145); eGFR For African Americans > 60 (> 60); eGFR For Non-African Americans > 60 (> 60)
[2018-11-28] MEDS: Budesonide/Formoterol 160/4.5 1 PUFF INH IH SCH ×2 (08:03→21:44)
[2018-11-28] MEDS: Furosemide 20 MG/2 ML VIAL IVP SCH (08:30)
[2018-11-28] MEDS: Insulin LISPRO 300 UNITS/3 ML VIAL SQ SCH ×4 (08:30→20:06)
[2018-11-28] MEDS: Insulin NPH 100 UNIT/ML (x5UNIT) SQ SCH ×2 (08:31→20:17)
[2018-11-28] MEDS: diazePAM 10 MG TABLET PO SCH ×2 (08:32→20:05)
[2018-11-28] MEDS: Gabapentin 400 MG CAPSULE PO SCH ×3 (08:32→20:05)
[2018-11-28] MEDS: Cholecalciferol (D-3) 1,000 UNIT (25MCG) TABLET PO SCH (08:35)
[2018-11-28] MEDS: Valsartan 160 MG TABLET PO SCH (08:36)
[2018-11-28] MEDS: Aspirin 81 MG TAB.CHEW PO SCH (08:36)
[2018-11-28] MEDS: Fenofibrate 54 MG TABLET PO SCH (08:36)
[2018-11-28] MEDS: Metoprolol XL (24 HR) Succ 50 MG TAB.ER.24H PO SCH (08:37)
--- NOTE | 2018-11-28 10:15 | Internal Med Progress Note ---
Hospitalist Progress Note - Encounter Date of Encounter: 11/28/18 Time of Encounter: 10:12 - Subjective Interval History: Patient seen and examined this morning events appear no acute overnight events. Patient breathing improved. He says she is ready to go for surgery. Denies any chest pain abdominal pain nausea vomiting or diarrhea. - Exam Vitals: Temp Pulse Resp BP Pulse Ox 97.7 F 74 16 145/84 97 11/28/18 06:42 11/28/18 06:42 11/28/18 08:03 11/28/18 06:42 11/28/18 09:13 Exam: General: In no acute distress. Respiratory exam: mild accessory muscle use. Diffuse wheezing. Cardiovascular exam: RRR, +S1, +S2. no murmur, gallop, rubs. GI/Abdominal exam: Non-tender, Non-distended, normal bowel sounds, soft, no peritoneal signs. Extremities exam: 1+ pedal edema, foul smell from dressing on both foot. Neurological exam: CN II-XII intact, AO X2, no focal deficits. Skin exam: b/l LE chronic dermatitis - Assessment and Plan (1) HTN (hypertension) Current Visit: Yes Status: Chronic (2) Insulin dependent diabetes mellitus Current Visit: Yes Status: Chronic (3) Peripheral vascular disease due to secondary diabetes Current Visit: Yes Status: Chronic (4) Foot ulcer with necrosis of bone Current Visit: Yes Status: Acute (5) Hyponatremia Current Visit: Yes Status: Acute (6) Code status needs review Current Visit: Yes Status: Chronic (7) Acute respiratory failure with hypoxia Current Visit: Yes Status: Acute - Summary of Assessment and Plan Summary of Assessment and Plan: Assessment Acute Diabetic foot ulcer with possible osteomyelitis acute hypoxic respiratory failure with hypoxia Hyperglycemia Psuedohyponatremia Chronic HTN PAD Diabetes related Neuropathy and nephropathy IDDM COPD HLD Plan - c/w empric vancoycin and zosyn. Signs of osteomyelitis on Xray. Surgery delayed due to Acute respiratory failure with hypoxia - CXR with possible aspiration and/or pulm vascular congestion. received 60 mg of IV Lasix this morning. decrease to 40 daily. c/w empiric antibitoics. received dose of steroid. hold for today given significant hyperglycemia. start scheduled bronchodilators. Saturating well on 3-4 lit NC. Stable to proceed with surgery. Discussed with podiatry - Uncontrolled blood sugar. Likely related to steroid use. WIll increase Long acting insulin to 50 BID and SSI. sodium is falsely low. - BP stable. Hold losartan. - His code status is DNR CCA but ok with surgery Internal Medicine: Result - Labs CBC & Chem 7: 11/28/18 04:34 11/28/18 04:34 Labs: Short CBC 11/28/18 Range/Units 04:34 WBC 15.0 H (4.3-11.1) K/mcL Hgb 10.2 L (12.9-16.9) g/dL Hct 33.1 L (37.5-50.1) % Plt Count 262 (140-400) K/mcL Neutrophils # 13.2 H (1.6-8.9) K/mcL BMP 11/28/18 04:34 Sodium 133 L Potassium 4.1 Chloride 98 Carbon Dioxide 25 BUN 33 H Creatinine 1.11 Glucose 437 H Calcium 8.4 L - ABG Interpretation ABG results: ABG ABG pH 7.40 pH Units (7.32-7.45) 11/27/18 05:47 ABG pCO2 41 mmHg (35-45) 11/27/18 05:47 ABG pO2 73 mmHg (85-104) L 11/27/18 05:47 ABG O2 Saturation 94 % (95-98) L 11/27/18 05:47 PT/INR, D-dimer PT 14.3 Seconds (9.4-12.1) H 11/26/18 01:57 - Impressions Impressions Echocardiogram 11/27/18 05:51 Impressions: Frequent PVCs. LVEF 30-35%. Severe global left ventricular systolic dysfunction. Mildly dilated left ventricle. Indeterminate diastolic function. Normal right ventricular structure and function. Mild biatrial dilatation. Moderate aortic stenosis with mild-moderate aortic regurgitation. Mild mitral regurgitation. Mild tricuspid regurgitation. Moderate pulmonary hypertension. Ordering physician notified via [employer]. Left Ventricular Wall Motion: Rest Echo Findings The apex, apical inferior, mid inferior, basal inferior, apical anterior, mid anterior, basal anterior, apical septal, mid inferior septal, basal inferior septal, apical lateral, mid anterior lateral, basal anterior lateral, mid anterior septal, mid inferior lateral, basal anterior septal and basal inferior lateral lane were hypokinetic. Findings: Study Quality * Technically sub-optimal due to clinical status. ECG Findings * Sinus rhythm with frequent PVCs. Left Ventricle * LVEF 30-35%. * Mildly dilated left ventricle. No LVH. * Severe global left ventricular systolic dysfunction. * Indeterminate diastolic function. * Definity echo contrast was not used. Right Ventricle * Normal right ventricular structure and function. Left Atrium * Mildly dilated left atrium. Right Atrium * Mildly dilated right atrium. Interatrial Septum * Interatrial septum not well evaluated. Aortic Valve * Severely calcified aortic valve leaflets. * Moderate aortic stenosis. * Mean gradient 22 mmHg. * Mild-moderate aortic regurgitation. Mitral Valve * Normal mitral valve structure. * No mitral stenosis. * Mild mitral regurgitation. Tricuspid Valve * Normal tricuspid valve structure. * No tricuspid stenosis. * Mild tricuspid regurgitation. * Estimated RVSP is 50 mmHg. * Estimated RA pressure is 15 mmHg. * Moderate pulmonary hypertension. Pulmonic Valve * Pulmonic valve is not well visualized. * No pulmonic stenosis. * No pulmonic regurgitation. Aorta * Normally sized aortic root. Pericardium * The pericardium appears normal. IVC * The IVC is dilated. * < 50% respiratory change. Device lead * A device lead was visualized in the right atrium and right ventricle. Consult Discharge Plan - Plan Referrals: David Jerez [Primary Care Provider] - (1) HTN (hypertension) Qualifiers: Hypertension type: essential hypertension Qualified Code(s): I10 - Essential (primary) hypertension (4) Foot ulcer with necrosis of bone Qualifiers: Laterality: unspecified laterality Qualified Code(s): L97.504 - Non-pressure chronic ulcer of other part of unspecified foot with necrosis of bone
[2018-11-28] MEDS ORDERED: Ipratropium/Albuterol Neb 3 ML IH PRN (10:52)
[2018-11-28] MEDS: Ipratropium/Albuterol Neb 3 ML IH SCH ×3 (11:39→21:44)
[2018-11-28] MEDS ORDERED: *HR* Heparin 5,000 UNIT/ML VIAL IVP ONE (12:20)
[2018-11-28] MEDS ORDERED: *HR* Heparin 5,000 UNIT/ML VIAL IVP PRN ×2 (12:20)
[2018-11-28 13:30] LABS: Hematocrit 37.7 % (37.5-50.1); Hemoglobin 11.5 g/dL (12.9-16.9); Mean Corpuscular HGB Conc 30.5 g/dL (31.6-35.5); Mean Corpuscular Hemoglobin 28.3 pg (28.0-33.3); Mean Corpuscular Volume 92.9 fL (83.0-100.0); Mean Platelet Volume 10.8 fL (9.4-12.4); Platelet Count 268 K/mcL (140-400); Red Blood Count 4.06 M/mcL (4.19-5.50); Red Cell Distribution Width 15.1 % (11.5-14.5); White Blood Count 18.2 K/mcL (4.3-11.1)
[2018-11-28 13:38] LABS: Heparin anti-factor XA UFH 0.01 IU/mL (0.30-0.70)
--- NOTE | 2018-11-28 13:52 | Podiatry Progress Note ---
Date of Encounter: 11/28/18 Time of Encounter: 13:50 - Assessment and Plan (1) Diabetic foot ulcer Current Visit: No Status: Acute Assessment: Necrosis of bilateral calcaneous that are malodorous Maceration noted to periowound, left calcaneous ulceration Large amount of serosanginous drainage noted to dressing Faint pulses bilaterally Dependent rubor bilaterally WBC 18.2, ESR 101, CRP >300 Patient afebrile over the last 24 hours, max temp 101.3 XR of right foot negative for any osseous abnormality XR of left foot concerning for subcutaneous gas and oseteomyelitis Plan: NPO after MN, ok to have diabetic diet today Plan for OR tomorrow, patient will be add on case AGUILAR and TCPO2 pressures ordered Local wound care orders placed, nursing to change Will need social service consult for ECF/rehab placement Painted bilateral calcaneous with betadine, covered with 4x4 dry gauze, kerlix, and medipore tape Impression: XR/XR foot 3V LT IMPRESSION: Ulceration seen along the plantar aspect of the heel. Questionable osteolysis involving the subjacent calcaneus, raising the possibility of osteomyelitis. D/ / Fco Sethi MD / Fco Sethi MD Interpreting Provider: Fco Sethi MD R #: [id number] XR/XR foot 3V RT IMPRESSION: No bony abnormality D/ / Armen Li MD / Armen Li MD Interpreting Provider: Armen Li MD Qualifiers: Diabetic foot ulcer location: heel Diabetes mellitus type: type 1 Laterality: left Non-pressure ulcer stage: unspecified non-pressure ulcer stage Qualified Code(s): E10.621 - Type 1 diabetes mellitus with foot ulcer; L97.429 - Non-pressure chronic ulcer of left heel and midfoot with unspecified severity Subjective Principal diagnosis: Necrotic ulcers both heels Interval history: Patient lethargic in bed. Family at bedside. Patient unable to participate in examination d/t lethargy. Family states he has not slept well and is very tired. Discussed with family need for surgical intervention tomorrow. Family verbalized understanding. Objective - Vital Signs Vital Signs: Vital Signs Temp Pulse Resp BP Pulse Ox 11/28/18 11:39 16 100 11/28/18 10:18 97.4 F L 65 17 126/61 99 11/28/18 09:13 97 11/28/18 08:03 16 97 11/28/18 06:42 97.7 F 74 16 145/84 99 11/27/18 23:59 97.9 F 86 28 126/61 100 11/27/18 20:49 17 98 11/27/18 19:52 97.9 F 86 28 148/66 98 11/27/18 14:26 97.8 F 99 28 174/82 96 Intake and Output 11/27/18 11/28/18 11/28/18 23:59 07:59 15:59 Intake Total 350 / 550 100 / 100 0 / 100 Output Total 600 / 800 0 / 500 500 / 500 Balance -250 / -250 100 / -400 -500 / -400 Intake: IV Fluids 350 / 550 100 / 100 Zosyn 3.375 GM In 0.9 % Sodium 100 / 300 100 / 100 Chloride (Mini-Bag +) 100 ML @ 25 mls/hr IVPB Q8HR [facility] Rx#: [id number] Vancocin 1,250 MG In 0.9 % 250 / 250 Sodium Chloride 250 ML @ 166.67 mls/hr IVPB Q12H [facility] Rx#: [id number] Oral 0 / 0 Output: Urine 600 / 800 0 / 500 500 / 500 Other: Meal NPO Percent of Meal Consumed 0% Stool Size Large Stool Consistency loose Stool Color Brown # Voids 1 1 # Bowel Movement Diapers 1 1 Blood Glucose* [phone] - Exam Exam: Constitiutional: Lethargic. No acute distress noted Vascular: Faint DP/PT bilaterally, CFT <3 sec to all digits, warm to cool from tibia to toes bilaterally Neurologic: unable to participate d/t lethargy Dermatologic: Rosas grade IV ulceration noted to bilateral calcaneous, malodor noted to bilateral calcaneous, maceration noted to left periwound, dependent rubor noted bilaterally Musculoskeletal: 2/5 muscle strength and normal tone bilaterally. - Lab Result Diagrams: 11/28/18 12:55 11/28/18 04:34 Labs: Abnormal lab results WBC 18.2 K/mcL (4.3-11.1) H 11/28/18 12:55 RBC 4.06 M/mcL (4.19-5.50) L 11/28/18 12:55 Hgb 11.5 g/dL (12.9-16.9) L 11/28/18 12:55 Hct 33.1 % (37.5-50.1) L 11/28/18 04:34 MCHC 30.5 g/dL (31.6-35.5) L 11/28/18 12:55 RDW 15.1 % (11.5-14.5) H 11/28/18 12:55 Neutrophils # 13.2 K/mcL (1.6-8.9) H 11/28/18 04:34 ESR 101 mm/hr (0-10) H 11/25/18 21:51 PT 14.3 Seconds (9.4-12.1) H 11/26/18 01:57 Heparin Anti-Xa, Unfract 0.01 IU/mL (0.30-0.70) L 11/28/18 13:10 ABG pO2 73 mmHg (85-104) L 11/27/18 05:47 ABG Total CO2 27 mEq/L (20-26) H 11/27/18 05:47 ABG O2 Saturation 94 % (95-98) L 11/27/18 05:47 Sodium 133 mEq/L (136-145) L 11/28/18 04:34 Chloride 96 mEq/L (98-107) L 11/26/18 01:57 BUN 33 mg/dL (8-23) H 11/28/18 04:34 BUN/Creatinine Ratio 30 (6-26) H 11/28/18 04:34 Glucose 437 mg/dL (70-105) H 11/28/18 04:34 POC Glucose 334 mg/dL (70-99) H 11/28/18 12:11 Hemoglobin A1c 10.9 % (-5.6) H 11/26/18 01:57 Calculated Osmolality 302 (280-300) H 11/28/18 04:34 Calcium 8.4 mg/dL (8.6-10.3) L 11/28/18 04:34 C-Reactive Protein > 300 mg/L (Less than 10) H 11/25/18 21:51 Serum Total Protein 6.3 g/dL (6.4-8.9) L 11/26/18 01:57 Albumin 2.4 g/dL (3.5-5.7) L 11/26/18 01:57 Globulin 3.9 g/dL (2.4-3.5) H 11/26/18 01:57 Albumin/Globulin Ratio 0.6 (1.1-2.2) L 11/26/18 01:57 HDL Cholesterol 33 mg/dL (40-59) L 11/26/18 01:57 Urine Clarity Cloudy (Clear) A 11/26/18 06:11 Ur Specific [place] > 1.030 (1.010-1.025) H 11/26/18 06:11 Urine Protein >=300 mg/dL (Neg-Trace) H 11/26/18 06:11 Urine Glucose (UA) >=1000 mg/dL (Normal) H 11/26/18 06:11 Urine Blood Small (Negative) H 11/26/18 06:11 Urine Bilirubin Small (Negative) H 11/26/18 06:11 Urine Microscopic RBC 5-15 per hpf (0-3) H 11/26/18 06:11 Urine Microscopic WBC 5-15 per hpf (0-3) H 11/26/18 06:11 Ur Squamous Epith Cells Many per lpf (None-Few) H 11/26/18 06:11 Vancomycin Trough 14 mcg/mL (5-10) H 11/27/18 14:04 Consult Discharge Plan - Plan Referrals: David Jerez [Primary Care Provider] -
[2018-11-28] MEDS: Heparin 25,000 UNIT/250 ML D5W 25,000 UNIT/250 ML IV.SOLN IVC SCH (13:54)
[2018-11-28] MEDS: *HR* OxyCODONE/APAP 5/325 TABLET PO PRN (17:43)
--- NOTE | 2018-11-28 17:48 | Anesthesia Evaluation PreOp ---
Date of Encounter: 11/28/18 Time of Encounter: 17:45 - Past History Planned Operation: I&D bilat foot Cardiac History: CHF (11/27/18 EV/EV echocardiogram Impressions: Frequent PVCs. LVEF 30-35%. Severe global left ventricular systolic dysfunction. Mildly dilated left ventricle. Indeterminate diastolic function. Normal right ventricular structure and function. Mild biatrial dilatation. Moderate aortic stenosis with mild-moderate aortic regurgitation. Mild mitral regurgitation. Mild tricuspid regurgitation. Moderate pulmonary hypertension. 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) [employer] History: Denies Any Significant HX Other Medical History: Diabetes Type II, GERD, Other (sybil necrotic diabetic ulcers) Anesthesia History: No Prior Anesthetic Complications, Past Anesthesia (ampution of left # 4 toe) Alcohol Use: occasionally Drug use: none Medications and Allergies Aspirin 81 mg PO DAILY 02/12/15 [History] Gabapentin [Neurontin] 600 mg PO BID 02/12/15 [History] Atorvastatin [Lipitor] 40 mg PO HS 02/18/17 [History] DULoxetine [Cymbalta] 30 mg PO DAILY 02/18/17 [History] Glimepiride [Amaryl] 4 mg PO DAILY 02/18/17 [History] Potassium Chloride [Klor-Con 10] 20 meq PO BID 02/18/17 [History] Albuterol Neb [Proventil Neb] 90 mcg IH Q6HR PRN 11/26/18 [History] Apixaban [Eliquis] 5 mg PO BID 11/26/18 [History] Budesonide/Formoterol 160/4.5 [Symbicort 160/4.5] 2 puff IH BIDR 11/26/18 [History] Cholecalciferol (Vitamin D3) [Vitamin D] 4,000 unit PO TID 11/26/18 [History] Doxycycline Hyclate [Morgidox] 100 mg PO BID 11/26/18 [History] Furosemide [Lasix] 40 mg PO TID 11/26/18 [History] Gabapentin [Neurontin] 800 mg PO TID 11/26/18 [History] Ipratropium/Albuterol Sulfate [Iprat-Albut 0.5-3(2.5) mg/3 ml] 3 ml IH Q6HR PRN 11/26/18 [History] Levalbuterol HCl [Xopenex Concentrate] 1.25 mg IH Q4HR PRN 11/26/18 [History] Levalbuterol HCl [Xopenex Concentrate] 1.25 mg IH Q6HR 11/26/18 [History] Magnesium Oxide [Magnesium] 400 mg PO BID 11/26/18 [History] Metoprolol Succinate [Toprol Xl] 50 mg PO DAILY 11/26/18 [History] Morphine Oral CONC [Roxanol] 0.25 ml PO Q3H PRN 11/26/18 [History] Oxybutynin Chloride [Ditropan XL] 5 mg PO BID 11/26/18 [History] Oxycodone HCl/Acetaminophen [Percocet 5-325 mg Tablet] 1 - 2 each PO Q6HR PRN 11/26/18 [History] Valsartan [Diovan] 160 mg PO DAILY 11/26/18 [History] diazePAM [Valium] 5 mg PO BID 11/26/18 [History] Fenofibrate Nanocrystallized [Fenofibrate] 145 mg PO DAILY 11/27/18 [History] Gentamicin Sulfate Cream [Garamycin] 1 appl TP TID 11/27/18 [History] Metformin HCl 1,000 mg PO BID 11/27/18 [History] Non-Formulary Medication 0 each PO AD 11/27/18 [History] Tiotropium [Spiriva] 1 puff PO DAILY 11/27/18 [History] Allergy/AdvReac Type Severity Reaction Status Date / Time Sulfa (Sulfonamide Allergy Severe Itching, Verified 11/27/18 18:37 Antibiotics) hives, rash Latex, Natural Rubber Allergy Rash Verified 11/27/18 18:37 Tape Allergy Severe Pulls skin Uncoded 11/27/18 18:37 off - Meds/Allergy Pre-op Review Medications Reviewed: Yes Allergies Reviewed: Yes Beta Blockers on Current Med List: Yes If Beta Blockers taken, Date/Time (Last Dose taken): 11/28/18 837am Anesthesia Results - Labs 11/28/18 12:55 11/28/18 04:34 Laboratory Tests 11/26/18 11/28/18 01:57 13:10 PT 11.0 INR 1.0 APTT 28.5 - Imaging EKG: report reviewed (SR with prolonged MO) Chest x-ray: report reviewed (FINDINGS: Cardiomegaly. No interval change of mild infiltrate at the right lung base. Interval resolution of airspace disease at the left lung base. No pleural effusions. No pneumothorax. No free air below the diaphragm.) Additional studies: Echocardiogram 2016 which showed LVEF of 60-65%. Normal LV chamber size and function. Mild concentric left ventricular hypertrophy. Mild left ventricular diastolic dysfunction. Normal right ventricular structure and function. Moderately calcified, trileaflet aortic valve with reduced excursion. Mild to moderate aortic regurgitation. Mild aortic stenosis. Mean gradient 12 mmHg. No evidence of pulmonary hypertension. Anesthesia Exam Vital Signs/O2 Sat, Most Current Temp Pulse Resp BP Pulse Ox 97.5 F L 68 18 144/70 99 11/28/18 14:45 11/28/18 14:45 11/28/18 16:11 11/28/18 14:45 11/28/18 16:11 Weight: 104kg - HEENT Pupil (Motor): Pupils equal, EOMI Mallampati: III Teeth: Missing Oral Opening: Greater than 3 - [employer] LOC: Oriented - Cardiac Rhythm: Regular - Pulmonary Respiratory Effort: Symmetrical Anesthesia Assess/Plan ASA Score: 4 Level of consciousness: Cooperative Anesthetic Plan: General, MAC Monitoring Plan: Standard Monitors Recovery Plan: PACU
[2018-11-29] MEDS: Piperacillin/Tazobactam 3.375 GM in 0.9 % Sodium Chloride Mini Bag 100 ML IVPB SCH ×4 (00:06→23:46)
[2018-11-29] MEDS: Ipratropium/Albuterol Neb 3 ML IH SCH ×4 (03:39→21:33)
[2018-11-29] MEDS: *HR* OxyCODONE/APAP 5/325 TABLET PO PRN (05:11)
[2018-11-29 05:39] LABS: Basophils % 0.2 %; Eosinophils # 0.2 K/mcL (0.0-0.6); Eosinophils % 1.5 %; Hematocrit 33.5 % (37.5-50.1); Hemoglobin 10.1 g/dL (12.9-16.9); Immature Granulocytes % 0.6 % (0-4); Lymphocytes # 1.7 K/mcL (0.6-4.6); Lymphocytes % 13.8 %; Mean Corpuscular HGB Conc 30.1 g/dL (31.6-35.5); Mean Corpuscular Hemoglobin 28.6 pg (28.0-33.3); Mean Corpuscular Volume 94.9 fL (83.0-100.0); Mean Platelet Volume 10.3 fL (9.4-12.4); Monocytes # 0.8 K/mcL (0.0-1.3); Neutrophils # 9.7 K/mcL (1.6-8.9); Platelet Count 283 K/mcL (140-400); Red Blood Count 3.53 M/mcL (4.19-5.50); Red Cell Distribution Width 14.9 % (11.5-14.5); Segmented Neutrophils % 77.9 %; White Blood Count 12.4 K/mcL (4.3-11.1)
[2018-11-29 06:01] LABS: BUN/Creatinine Ratio 28 (6-26); Blood Urea Nitrogen 33 mg/dL (8-23); Calcium 8.5 mg/dL (8.6-10.3); Carbon Dioxide 31 mEq/L (23-29); Chloride 99 mEq/L (98-107); Glucose 242 mg/dL (70-105); Osmolality,Calculated 301 (280-300); Sodium 138 mEq/L (136-145); eGFR For African Americans > 60 (> 60); eGFR For Non-African Americans 60 (> 60)
[2018-11-29] MEDS: Heparin 25,000 UNIT/250 ML D5W 25,000 UNIT/250 ML IV.SOLN IVC SCH ×2 (08:16→23:48)
[2018-11-29] MEDS: diazePAM 10 MG TABLET PO SCH (08:43)
[2018-11-29] MEDS: Insulin LISPRO 300 UNITS/3 ML VIAL SQ SCH ×3 (08:44→15:35)
[2018-11-29] MEDS: Insulin NPH 100 UNIT/ML (x5UNIT) SQ SCH (08:45)
[2018-11-29] MEDS: Fenofibrate 54 MG TABLET PO SCH (08:46)
[2018-11-29] MEDS: Cholecalciferol (D-3) 1,000 UNIT (25MCG) TABLET PO SCH (08:46)
[2018-11-29] MEDS: Metoprolol XL (24 HR) Succ 50 MG TAB.ER.24H PO SCH (08:47)
[2018-11-29] MEDS: Gabapentin 400 MG CAPSULE PO SCH (08:47)
[2018-11-29] MEDS: Aspirin 81 MG TAB.CHEW PO SCH (08:47)
[2018-11-29] MEDS ORDERED: Furosemide 40 MG/4 ML VIAL IVP SCH (09:00)
--- NOTE | 2018-11-29 09:14 | Internal Med Progress Note ---
Hospitalist Progress Note - Encounter Date of Encounter: 11/29/18 Time of Encounter: 08:57 - Subjective Interval History: Patient seen and examined this morning at bedside. No acute overnight events. Plan for surgery today. Nothing by mouth. Heparin has been held. Patient alert but the nurses reported on and off confused. He feels his breathing is better and that he is ready for surgery. Has decreased sensation on lower extremity. Denies any chest pain. - Exam Vitals: Temp Pulse Resp BP Pulse Ox 98.0 F 62 16 144/76 99 11/29/18 03:00 11/29/18 03:00 11/29/18 03:39 11/29/18 03:00 11/29/18 03:39 Exam: General: In no acute distress. Respiratory exam: no accessory muscle use. decreased air entry. minimal rhonchi bilaterally Cardiovascular exam: RRR, +S1, +S2. no murmur, gallop, rubs. GI/Abdominal exam: Non-tender, Non-distended, normal bowel sounds, soft, no peritoneal signs. Extremities exam: 1+ pedal edema, dressing on both foot. Bluish discoloration of toes b/l with decreased sensation till lower part of leg but able to move toes. Neurological exam: CN II-XII intact, AO X2, no focal deficits except as above Skin exam: b/l LE chronic dermatitis - Assessment and Plan (1) HTN (hypertension) Current Visit: Yes Status: Chronic (2) Insulin dependent diabetes mellitus Current Visit: Yes Status: Chronic (3) Peripheral vascular disease due to secondary diabetes Current Visit: Yes Status: Chronic (4) Foot ulcer with necrosis of bone Current Visit: Yes Status: Acute (5) Hyponatremia Current Visit: Yes Status: Acute (6) Code status needs review Current Visit: Yes Status: Chronic (7) Acute respiratory failure with hypoxia Current Visit: Yes Status: Acute - Summary of Assessment and Plan Summary of Assessment and Plan: Assessment Acute Diabetic foot ulcer with possible osteomyelitis acute hypoxic respiratory failure with hypoxia Pneumonia Hyperglycemia Psuedohyponatremia Uncontrolled diabetes Recent PE. Chronic HTN PAD Diabetes related Neuropathy and nephropathy IDDM COPD HLD Plan - c/w empric vancoycin and zosyn. Signs of osteomyelitis on Xray. Surgery delayed due to Acute respiratory failure with hypoxia - CXR with possible aspiration and/or pulm vascular congestion. Lasix decreased to 40 daily yesterday. c/w empiric antibitoics. received dose of steroid for COPD, hold for now given significant hyperglycemia. c/w scheduled bronchodilators. Saturating well on 3-4 lit NC. Stable to proceed with surgery. Plan for surgery later today. Normal AGUILAR. Right ankle TCPO2 58, foot 37, Left ankle TCPO2 24, foot 23. - Uncontrolled blood sugar. Likely related to steroid use on underlying uncontrolled DM with A1c of 10.9. c/w lantus 50 BID and SSI. BG better controlled. - BP stable. Hold losartan for now - was started on heparin due to recent PE about a month ago and eliquis was stopped. Heparin held for surgery. - Has on/off confusion. Hold diazepam and gabapentin. - His code status is DNR CCA but ok with surgery Internal Medicine: Result - Labs CBC & Chem 7: 11/29/18 03:48 11/29/18 03:48 Labs: Short CBC 11/28/18 11/29/18 Range/Units 12:55 03:48 WBC 18.2 H 12.4 H (4.3-11.1) K/mcL Hgb 11.5 L 10.1 L (12.9-16.9) g/dL Hct 37.7 33.5 L (37.5-50.1) % Plt Count 268 283 (140-400) K/mcL Neutrophils # 9.7 H (1.6-8.9) K/mcL BMP 11/29/18 03:48 Sodium 138 Potassium 4.0 Chloride 99 Carbon Dioxide 31 H BUN 33 H Creatinine 1.18 Glucose 242 H Calcium 8.5 L - ABG Interpretation ABG results: ABG ABG pH 7.40 pH Units (7.32-7.45) 11/27/18 05:47 ABG pCO2 41 mmHg (35-45) 11/27/18 05:47 ABG pO2 73 mmHg (85-104) L 11/27/18 05:47 ABG O2 Saturation 94 % (95-98) L 11/27/18 05:47 PT/INR, D-dimer PT 11.0 Seconds (9.4-12.1) 11/28/18 13:10 Consult Discharge Plan - Plan Referrals: David Jerez [Primary Care Provider] - (1) HTN (hypertension) Qualifiers: Hypertension type: essential hypertension Qualified Code(s): I10 - Essential (primary) hypertension (4) Foot ulcer with necrosis of bone Qualifiers: Laterality: unspecified laterality Qualified Code(s): L97.504 - Non-pressure chronic ulcer of other part of unspecified foot with necrosis of bone
[2018-11-29] MEDS: Budesonide/Formoterol 160/4.5 1 PUFF INH IH SCH ×2 (10:03→21:33)
--- NOTE | 2018-11-29 13:27 | Electrocardiograph Report ---
[address] [address] Test Date: 2018-11-25 Pat Name: Jose Alfredo Best Department: [id number] Room: 3A15 Gender: M [employer]: : 1940 Requested By: Irvin Kendrick Order Number: [id number] Reading MD: Rafita Portillo Measurements Intervals [place] Rate: 91 P: 0 [place]: 262 QRS: 39 QRSD: 102 T: 213 QT: 343 QTc: 422 Interpretive Statements Sinus rhythm Ventricular premature complex Prolonged [place] interval Electronically Signed On 11-29-2018 13:25:50 EDT by Rafita Portillo
[2018-11-29] MEDS ORDERED: Ropivicaine 0.25% 20 ml Syringe INTRAART ONE (17:30)
[2018-11-29] MEDS ORDERED: *HR* Propofol 200 MG/20 ML VIAL IVP ONE (17:43)
[2018-11-29] MEDS ORDERED: Lidocaine -MPF 2% 2 ML VIAL ONE (17:44)
[2018-11-29] MEDS ORDERED: Calcium Gluconate 1,000 MG/10 ML VIAL ONE (17:48)
[2018-11-29] MEDS ORDERED: ROPIVACAINE/PF/NS 0.25% 1 EACH SYRINGE INTRAART ONE (17:53)
[2018-11-29] MEDS ORDERED: Vancomycin 1,000 MG VIAL ONE (17:53)
[2018-11-29] MEDS ORDERED: Water for inj. (sterile) 10 ML ONE (17:54)
[2018-11-29] MEDS ORDERED: *HR* Magnesium Sulfate 1 GM/2 ML VIAL ONE (18:54)
[2018-11-29] MEDS ORDERED: *HR* Dextrose 50 % in Water (Syg) 50 ML SYRINGE ONE (19:22)
[2018-11-29] MEDS ORDERED: *HR* Dextrose 50 % in Water (Syg) 50 ML SYRINGE IVP PRN ×2 (19:24→21:25)
--- NOTE | 2018-11-29 19:49 | Orthopedic Operative Note ---
Date of procedure: 11/29/18 Pre-op diagnosis: #1: Infected ulceration with abscess and osteomyelitis both heels Post-op diagnosis: same (Necrosis of both heels) Procedure: 11/29/18 19:48 #1: Incision and drainage of multiple planes left foot #2: Incision and drainage of multiple planes right foot with application of PuraPly antimicrobial wound graft Implants: None Complications: Left leg with multiple loculated abscesses with necrosis throughout the plantar aspect the left foot including the medial space and central space of the left foot Anesthesia: MAC, local Local Anesthetics: Other (ropivacaine plain) Surgeon: Cruzito Clay Was there an promotions assistant present: No Estimated blood loss (cc): 20 Tourniquet Time (Minutes): 0 Specimen: Cultures both feet tissue swab aerobe and anaerobe Condition: stable Disposition: PACU Procedure in Detail: 11/29/18 19:50 Details in summary of procedure: Patient was brought to surgical suite. Sign in procedure was performed. Patient was then transferred to the surgical table and positioned properly safely securely. Both feet were elevated on foam block. No tourniquet used. Anesthetic timeout was taken. Both ankles were then prepped with alcohol 3 times and target nerve blocks were carried out for the posterior tibial and sural nerve bilaterally. Both feet were then prepped and draped in usual sterile manner. Surgical timeout was taken. Attention was turned the left foot where necrotic ulceration full-thickness essentially unstageable was noted measuring approximately 9 cm in length and a centimeters in width. Abscess full-thickness noted on the medial aspect of the medial incision large 2. Incision was then made around the periphery of the necrotic ulcer with a #15 scalpel blade. Was then deepened to subcutaneous tissue. Pickup and a Metzenbaum scissor was then used to excise surgically down to the superficial fascia of the necrotic skin. Foul fetid abscess was noted underneath overlying the deep fascia. It was immediately cultured aerobically and anaerobic. Tissue cultures also taken. We noticed tunnel loculated abscess along the abductor hallucis muscle belly continuing onto the abductor hallucis muscle tendon to the medial distal forefoot area incision was continued, for approximately 12 cm distally through the skin from the original wound distally and medially. Loculated abscess was drained noting 5 mL purulent drainage. The necrosis extended into the central space is well. Incision was continued down to the distal medial aspect first metatarsal. The level of the plantar fascia the soft tissue flap was raised draining even more purulent exudate. The wound was thoroughly irrigated with saline mixed with 1 g of vancomycin. A ultrasonics Misonix debrider was then used to remove much the devitalized tissue. Majority the tissue was completely nonviable and the medial and central space. Clinically this foot is not salvageable. The amount soft tissue loss due to the infection is significant. It was then packed with antibiotic-soaked saline sponges for dry 4 x 4's ABDs pads and Kerlix. Attention was turned to the right foot, where necrotic ulcers on the plantar aspect the right heel it too was circumferentially incised with a #15 scalpel blade down subcutaneous tissue and necrotic tissue was then excised down as to the superficial fascia with Metzenbaum scissor and pickup it to a foul fetid odor and serous foul fetid odor and drainage which was immediately cultured separately as well. Tissue cultures and swab cultures done. All necrotic tissue was abraded down to these deep fascia. A tunnel was then found along the medial band of the plantar fascia as well. All extended approximately 3 cm. Approximate 1 cm wide. Necrosis was also noted penetrate the periosteum on the plantar proximal medial aspect of the calcaneus. All devitalized tissue was surgically excised #15 scalpel blade pickup and Metzenbaum scissor remainder the wound was debrided with ultrasonics Misonix debrider and irrigated with sterile saline mixed with 1 g of vancomycin. There is no active bleeding necessitated use of Bovie ligature in the right foot. Hemostasis was achieved on the left foot prior to placing the sterile postoperative bandage, with a judicious use of a Bovie. Total estimated blood loss was 20 mL. Is unlikely that the left foot is salvageable. Dressings were placed accordingly left foot was dressed with a 6 cm x 9 centimeters total 54 cm of a PuraPly antimicrobial wound matrix followed by Adaptic 4 x 4's ABD pads and Kerlix. Patient was sent to PACU, for postoperative monitoring because of his cardiovascular disease and diabetes. No intraoperative complications.
[2018-11-29 20:09] LABS: BUN/Creatinine Ratio 28 (6-26); Blood Urea Nitrogen 24 mg/dL (8-23); Calcium 8.1 mg/dL (8.6-10.3); Carbon Dioxide 32 mEq/L (23-29); Chloride 102 mEq/L (98-107); Glucose 134 mg/dL (70-105); Magnesium 1.7 mg/dL (1.6-2.6); Osmolality,Calculated 292 (280-300); Potassium 3.4 mEq/L (3.5-5.1); Sodium 138 mEq/L (136-145); eGFR For African Americans > 60 (> 60); eGFR For Non-African Americans > 60 (> 60)
--- NOTE | 2018-11-29 20:54 | Anesthesia Evaluation Post Op ---
Date of Encounter: 11/29/18 Time of Encounter: 20:49 - Vital Signs Vital Signs: Vital Signs/O2 Sat, Most Current Temp Pulse Resp BP Pulse Ox 97.9 F 67 18 158/84 100 11/29/18 20:28 11/29/18 20:28 11/29/18 20:28 11/29/18 20:28 11/29/18 20:28 - Lungs Lungs: Rhonchi - Airway Airway: Non-obstructed - Cardiovascular Baseline Rhythm - Mental Status Mental Status: Asleep with brisk response to light stimulation - Pain Pain Scale: 0 Pain Scale used: Numeric (1 - 10) - Nausea Vomiting Nausea Vomiting: Not Present - Hydration Hydration: Tolerates oral liquids Notes: 11/29/18 20:49 Pt was done under MAC anesthesia, intraop he had cardiac dysrhythmias including pvcs, bigeminy and short runs of NSVT, his BP and oxygen were stable, we gave him 1g of Mg intraop and he tolerated procedure, due to patients comorbid conditions i opted to send him to pacu for post op monitoring prior to transfer to the floor, On arrival to pacu accucheck was 39 and he was treated with D50, recheck was 89, we also checked a bmp and mg level which were 3.4 and 1.7 respectively, i discharged him to the floor with tele monitoring. Further management per primary team - Discharge PostOp Status: Transfer Patient to floor
[2018-11-29] MEDS ORDERED: Potassium Chloride Elixir 20 MEQ/15 ML UDC PO ONE (21:21)
[2018-11-29] MEDS ORDERED: Dextrose Gel 15 GM/37.5 ML TUBE PO PRN ×2 (21:25)
[2018-11-29] MEDS ORDERED: Naloxone 0.4 MG/ML INJ IVP PRN (21:25)
[2018-11-29] MEDS ORDERED: Ondansetron 4 MG/2 ML VIAL IVP PRN (21:25)
[2018-11-29] MEDS ORDERED: D5% in Water 1,000 ML IVC PRN (21:25)
[2018-11-29] MEDS ORDERED: *HR* Heparin 5,000 UNIT/ML VIAL IVP PRN (21:25)
[2018-11-29] MEDS ORDERED: Ipratropium/Albuterol Neb 3 ML ONE (21:31)
[2018-11-29] MEDS ORDERED: hydrALAZINE 10 MG TABLET PO PRN (23:07)
[2018-11-29] MEDS ORDERED: Ipratropium/Albuterol Neb 3 ML IH PRN (23:08)
[2018-11-30] MEDS: *HR* OxyCODONE/APAP 5/325 TABLET PO PRN ×3 (02:42→15:51)
[2018-11-30] MEDS: Ipratropium/Albuterol Neb 3 ML IH SCH ×4 (03:43→20:52)
[2018-11-30 04:56] LABS: Basophils # 0.1 K/mcL (0.0-0.2); Basophils % 0.3 %; Eosinophils # 0.1 K/mcL (0.0-0.6); Eosinophils % 0.9 %; Hemoglobin 10.6 g/dL (12.9-16.9); Immature Granulocytes % 0.7 % (0-4); Lymphocytes # 2.3 K/mcL (0.6-4.6); Lymphocytes % 15.4 %; Mean Corpuscular HGB Conc 31.2 g/dL (31.6-35.5); Mean Corpuscular Hemoglobin 28.4 pg (28.0-33.3); Mean Corpuscular Volume 91.2 fL (83.0-100.0); Monocytes # 0.8 K/mcL (0.0-1.3); Monocytes % 5.7 %; Neutrophils # 11.3 K/mcL (1.6-8.9); Platelet Count 320 K/mcL (140-400); Red Blood Count 3.73 M/mcL (4.19-5.50); Red Cell Distribution Width 14.9 % (11.5-14.5); White Blood Count 14.7 K/mcL (4.3-11.1)
[2018-11-30 05:12] LABS: BUN/Creatinine Ratio 26 (6-26); Blood Urea Nitrogen 21 mg/dL (8-23); Calcium 8.5 mg/dL (8.6-10.3); Carbon Dioxide 32 mEq/L (23-29); Chloride 103 mEq/L (98-107); Glucose 55 mg/dL (70-105); Osmolality,Calculated 287 (280-300); Potassium 3.6 mEq/L (3.5-5.1); Sodium 138 mEq/L (136-145); eGFR For African Americans > 60 (> 60); eGFR For Non-African Americans > 60 (> 60)
[2018-11-30] MEDS: *HR* Heparin 5,000 UNIT/ML VIAL IVP PRN ×2 (06:06→21:43)
[2018-11-30] MEDS: Insulin LISPRO 300 UNITS/3 ML VIAL SQ SCH ×3 (08:12→15:36)
[2018-11-30] MEDS: Piperacillin/Tazobactam 3.375 GM in 0.9 % Sodium Chloride Mini Bag 100 ML IVPB SCH ×2 (08:20→15:52)
[2018-11-30] MEDS: Metoprolol XL (24 HR) Succ 50 MG TAB.ER.24H PO SCH (08:22)
[2018-11-30] MEDS: Aspirin 81 MG TAB.CHEW PO SCH (08:22)
[2018-11-30] MEDS: Fenofibrate 54 MG TABLET PO SCH (08:22)
[2018-11-30] MEDS: Cholecalciferol (D-3) 1,000 UNIT (25MCG) TABLET PO SCH (08:22)
[2018-11-30] MEDS ORDERED: Insulin NPH 100 UNIT/ML (x5UNIT) SQ SCH (09:00)
[2018-11-30] MEDS ORDERED: Furosemide 40 MG/4 ML VIAL IVP SCH (09:00)
--- NOTE | 2018-11-30 10:40 | Internal Med Progress Note ---
Hospitalist Progress Note - Encounter Date of Encounter: 11/30/18 Time of Encounter: 10:07 - Subjective Interval History: Patient seen and examined this morning at bedside. No acute overnight events. Patient feeling better. Denies new complaint. Breathing significantly better. Afebrile and hemodynamically stable. Concerned that he might lose his leg. - Exam Vitals: Temp Pulse Resp BP Pulse Ox 96.5 F L 64 15 151/63 93 11/30/18 06:29 11/30/18 06:29 11/30/18 06:29 11/30/18 06:29 11/30/18 06:29 Exam: General: In no acute distress. Respiratory exam: no accessory muscle use. decreased air entry. minimal rhonchi bilaterally Cardiovascular exam: RRR, +S1, +S2. no murmur, gallop, rubs. GI/Abdominal exam: Non-tender, Non-distended, normal bowel sounds, soft, no peritoneal signs. Extremities exam: 1+ pedal edema, dressing on both foot. Bluish discoloration of toes b/l with decreased sensation till lower part of leg but able to move toes. Neurological exam: CN II-XII intact, AO X3, no focal deficits except as above Skin exam: b/l LE chronic dermatitis on higgins - Assessment and Plan (1) HTN (hypertension) Current Visit: Yes Status: Chronic (2) Insulin dependent diabetes mellitus Current Visit: Yes Status: Chronic (3) Peripheral vascular disease due to secondary diabetes Current Visit: Yes Status: Chronic (4) Foot ulcer with necrosis of bone Current Visit: Yes Status: Acute (5) Hyponatremia Current Visit: Yes Status: Acute (6) Code status needs review Current Visit: Yes Status: Chronic (7) Acute respiratory failure with hypoxia Current Visit: Yes Status: Acute - Summary of Assessment and Plan Summary of Assessment and Plan: Assessment Acute Diabetic foot ulcer with ulcer, necrosis and osteomyelitis on both LE acute hypoxic respiratory failure with hypoxia- resolved Pneumonia- RLB Hypoglycemia Psuedohyponatremia-resolved Uncontrolled diabetes Recent PE. Chronic HTN PAD Diabetes related Neuropathy and nephropathy IDDM COPD HLD CAD Plan - Clinically doing better. c/w empric vancoycin and zosyn. s/p surgery 11/29 on both feet. Significant for abscesses, necrosis and osteomyelitis. Lt foot unlikely to be salvagable per surgery note. Vascular surgery consulted. Appreciate vascular surgery input. f/u surgical cultures. Blood culture 11/25 NGTD. Will likely need termite inspector IV abx. Will consult infectious disease. - CXR with possible aspiration and/or pulm vascular congestion. stop lasix. c/w empiric antibitoics. start prednisone taper. c/w scheduled bronchodilators. - Uncontrolled DM with A1c of 10.9. lantus held given hypoglycemia. Will resume on BG better. c/w accuchecks. - BP stable. Hold home antihypertensive except metoprolol. - c/w heparin drip given recent PE. hold eliquis. - Hold diazepam and gabapentin. - His code status is DNR CCA but ok with surgery. At some point recently he was also hospice. Depending on further evaluation with continue discussion. Internal Medicine: Result - Labs CBC & Chem 7: 11/30/18 04:25 11/30/18 04:25 Labs: Short CBC 11/30/18 Range/Units 04:25 WBC 14.7 H (4.3-11.1) K/mcL Hgb 10.6 L (12.9-16.9) g/dL Hct 34.0 L (37.5-50.1) % Plt Count 320 (140-400) K/mcL Neutrophils # 11.3 H (1.6-8.9) K/mcL BMP 11/29/18 11/30/18 19:30 04:25 Sodium 138 138 Potassium 3.4 L 3.6 Chloride 102 103 Carbon Dioxide 32 H 32 H BUN 24 H 21 Creatinine 0.87 0.82 Glucose 134 H 55 L Calcium 8.1 L 8.5 L - ABG Interpretation ABG results: ABG ABG pH 7.40 pH Units (7.32-7.45) 11/27/18 05:47 ABG pCO2 41 mmHg (35-45) 11/27/18 05:47 ABG pO2 73 mmHg (85-104) L 11/27/18 05:47 ABG O2 Saturation 94 % (95-98) L 11/27/18 05:47 PT/INR, D-dimer PT 11.0 Seconds (9.4-12.1) 11/28/18 13:10 Consult Discharge Plan - Plan Referrals: David Jerez [Primary Care Provider] - (1) HTN (hypertension) Qualifiers: Hypertension type: essential hypertension Qualified Code(s): I10 - Essential (primary) hypertension (4) Foot ulcer with necrosis of bone Qualifiers: Laterality: unspecified laterality Qualified Code(s): L97.504 - Non-pressure chronic ulcer of other part of unspecified foot with necrosis of bone
[2018-11-30] MEDS: Budesonide/Formoterol 160/4.5 1 PUFF INH IH SCH ×2 (11:23→20:52)
--- NOTE | 2018-11-30 13:37 | Infectious Disease Consult ---
Infectious Disease-Consult - Encounter Date/Time Date of Encounter: 11/30/18 Time of Encounter: 13:36 - Data of Consult Patient: new to practice Reason for consult: Bilateral foot OM Consult date: 11/30/18 Requesting Physician: Oc Bach MD Primary Care Provider: David Jerez - [facility] HPI: Mr. Best is a 77 year old male with a past medical history of CHF, COPD, prostate cancer status post prostatectomy,DM, neuropathy, HLD, HTN, and remote history of toe amputation. The patient was admitted to the hospital 11/25/18 for left foot OM. We are consulted 11/30/18 for bilateral foot osteomyelitis. Briefly, the patient is a 77-year-old male with past medical history as stated above. The patient presented to the emergency department on the day of admission with complaints of bilateral heel necrosis and pain. Upon arrival, he was afebrile. He was tachycardic, but was otherwise hemodynamically stable. He had leukocytosis with neutrophilic predominance. ESR is elevated at 101 with a CRP of greater than 300. He had a left foot x-ray that showed findings concerning for osteo-myelitis of the calcaneus. Right foot x-ray was negative for acute osseous abnormality. Blood cultures were obtained 2 sets. He was started empirically on vancomycin and Zosyn and admitted to the hospital for further evaluation. Shortly after admission, the patient became febrile with a fever of 100.4. He has had a MAXIMUM TEMPERATURE of 101.3. Chest x-ray performed shortly after admission showed findings concerning for atelectasis versus pneumonia versus aspiration and pulmonary vascular congestion consistent with CHF. Urinalysis was obtained, but was negative for pyuria. LFTs were normal. Hemoglobin A1c was elevated at 10.9%. On the morning of 11/27/18, the patient went into acute respiratory distress with tachycardia and tachypnea. Repeat chest x-ray showed no change in the right basilar airspace disease and resolution of the left basilar airspace disease. Repeat lactic acid was normal. He had a transthoracic echocardiogram that showed an EF of 30-35%. He was evaluated by podiatry who recommended AGUILAR studies that were negative. TC PO2 monitoring was consistent with healing. He was taken to the operating room 11/29/18 where he underwent an I&D of the bilateral feet. Intraoperative cultures and pathology reports are pending. Currently, he is on vancomycin and Zosyn. We have been as ked to evaluate and make further recommendations. During my exam today, the patient states that he noticed some skin peeling from his heels about a month ago and he feels the skin off and it went a little bit too deep. He states that since then his heels have been becoming progressively more necrotic. 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 He denies any fevers, chills, or rigors prior to admission. Denies chest pain. Reports shortness of breath and chronic cough t here are baseline. Denies nausea, vomiting, diarrhea, or constipation. Denies abdominal pain or urinary complaints. Denies oral thrush or skin rashes. States the pain is markedly improved since surgery. The patient lives at home with his daughter. He smokes about a pack of cigarettes per day for last 60 years. Denies alcohol or illicit drug use. Denies chronic infectious diseases. Denies recent travel outside the [facility]. Denies any pet or animal exposures. - ROS Review of Systems: All systems reviewed and no additional remarkable complaints except as stated. - Results CBC & Chem 7: 11/30/18 04:25 11/30/18 04:25 - Exam Vitals: Temp Pulse Resp BP Pulse Ox 97.6 F 78 14 156/76 98 11/30/18 11:26 11/30/18 11:26 11/30/18 11:26 11/30/18 11:26 11/30/18 11:26 Exam: Head: Atraumatic, normal inspection, normocephalic. Eye: EOMI, PERRLA, no scleral icterus noted. ENT: Mucous membranes moist. No odontogenic infection noted. Neck: Normal inspection, no meningismus. Respiratory: Clear to auscultation. No rales, respiratory distress, rhonchi, or wheezes noted. Cardiovascular: Regular rate and rhythm, S1 and S2 audible. No murmurs, rubs, or gallops. GI: Soft, nondistended, normal bowel sounds. Extremities:No joint swelling or tenderness noted. BLE venous stasis dermatitis noted. Bilateral foot dressings C/D/I. 1+ edema noted to the BLE. Back: Normal inspection. No vertebral tenderness noted. Neurological: Alert, oriented 3, no focal deficits. Psychiatric: normal affect, normal mood. Skin: Dry, intact, warm. Normal color. No rashes. Aspirin 81 mg PO DAILY 02/12/15 [History] Gabapentin [Neurontin] 600 mg PO BID 02/12/15 [History] Atorvastatin [Lipitor] 40 mg PO HS 02/18/17 [History] DULoxetine [Cymbalta] 30 mg PO DAILY 02/18/17 [History] Glimepiride [Amaryl] 4 mg PO DAILY 02/18/17 [History] Potassium Chloride [Klor-Con 10] 20 meq PO BID 02/18/17 [History] Albuterol Neb [Proventil Neb] 90 mcg IH Q6HR PRN 11/26/18 [History] Apixaban [Eliquis] 5 mg PO BID 11/26/18 [History] Budesonide/Formoterol 160/4.5 [Symbicort 160/4.5] 2 puff IH BIDR 11/26/18 [History] Cholecalciferol (Vitamin D3) [Vitamin D] 4,000 unit PO TID 11/26/18 [History] Doxycycline Hyclate [Morgidox] 100 mg PO BID 11/26/18 [History] Furosemide [Lasix] 40 mg PO TID 11/26/18 [History] Gabapentin [Neurontin] 800 mg PO TID 11/26/18 [History] Ipratropium/Albuterol Sulfate [Iprat-Albut 0.5-3(2.5) mg/3 ml] 3 ml IH Q6HR PRN 11/26/18 [History] Levalbuterol HCl [Xopenex Concentrate] 1.25 mg IH Q4HR PRN 11/26/18 [History] Levalbuterol HCl [Xopenex Concentrate] 1.25 mg IH Q6HR 11/26/18 [History] Magnesium Oxide [Magnesium] 400 mg PO BID 11/26/18 [History] Metoprolol Succinate [Toprol Xl] 50 mg PO DAILY 11/26/18 [History] Morphine Oral CONC [Roxanol] 0.25 ml PO Q3H PRN 11/26/18 [History] Oxybutynin Chloride [Ditropan XL] 5 mg PO BID 11/26/18 [History] Oxycodone HCl/Acetaminophen [Percocet 5-325 mg Tablet] 1 - 2 each PO Q6HR PRN 11/26/18 [History] Valsartan [Diovan] 160 mg PO DAILY 11/26/18 [History] diazePAM [Valium] 5 mg PO BID 11/26/18 [History] Fenofibrate Nanocrystallized [Fenofibrate] 145 mg PO DAILY 11/27/18 [History] Gentamicin Sulfate Cream [Garamycin] 1 appl TP TID 11/27/18 [History] Metformin HCl 1,000 mg PO BID 11/27/18 [History] Non-Formulary Medication 0 each PO AD 11/27/18 [History] Tiotropium [Spiriva] 1 puff PO DAILY 11/27/18 [History] Allergy/AdvReac Type Severity Reaction Status Date / Time Sulfa (Sulfonamide Allergy Severe Itching, Verified 11/27/18 18:37 Antibiotics) hives, rash Latex, Natural Rubber Allergy Rash Verified 11/27/18 18:37 Tape Allergy Severe Pulls skin Uncoded 11/27/18 18:37 off - Assessment and Plan (1) Sepsis Current Visit: Yes Status: Acute The patient had 3 sepsis criteria. Likely secondary to bilateral foot infection. Improved. White blood cell count up a little bit from yesterday, but likely reactive from recent surgery. Tachycardia resolved. He has been afebrile. Blood cultures drawn 11/25/18 are no growth to date 2 sets. Qualifiers: Sepsis type: sepsis due to unspecified organism Qualified Code(s): A41.9 - Sepsis, unspecified organism SNOMED Code(s): 05495639 (2) Osteomyelitis Current Visit: Yes Status: Acute Location: Bilateral feet. Causative organism: Unclear. Etiology: Likely multifactorial. Uncontrolled diabetes, tobacco use, diabetic foot ulcers. X-ray of the left foot showed findings concerning for osteomyelitis of the calcaneus. Right foot x-ray showed no acute osseous abnormality. ESR 101, CRP greater than 300. Bilateral lower extremity ABIs were normal. TCP O2 monitoring consistent with healing bilaterally. Podiatry consulted. Status post I&D of the left and right foot 11/29/[address] Clay. Operative note reviewed. Purulent noted beneath the fascia and near the bone. Intraoperative cultures and pathology are pending. Currently on vancomycin and Zosyn. Qualifiers: Osteomyelitis type: acute hematogenous Osteomyelitis location: foot Laterality: unspecified laterality Qualified Code(s): M86.079 - Acute hematogenous osteomyelitis, unspecified ankle and foot SNOMED Code(s): 87866181 (3) Diabetic foot ulcer Current Visit: No Status: Acute Location: Bilateral heels. Podiatry consulted and following. Qualifiers: Diabetic foot ulcer location: heel Diabetes mellitus type: type 1 Laterality: left Non-pressure ulcer stage: unspecified non-pressure ulcer stage Qualified Code(s): E10.621 - Type 1 diabetes mellitus with foot ulcer; L97.429 - Non-pressure chronic ulcer of left heel and midfoot with unspecified severity SNOMED Code(s): 398574584 (4) HTN (hypertension) Current Visit: Yes Status: Chronic Qualifiers: Hypertension type: essential hypertension Qualified Code(s): I10 - Essential (primary) hypertension SNOMED Code(s): 40394494 (5) Acute respiratory failure with hypoxia Current Visit: Yes Status: Acute Acute on chronic. CXR concerning for atelectasis vs. PNA. vs. aspiration. Repeat CXR showed resolution of left basilar airspace disease and no change in the right base airspace disease. Low index of suspicion for PNA based on clinical picture. Appears back to baseline. SNOMED Code(s): 74068727, 013823779 (6) Insulin dependent diabetes mellitus Current Visit: Yes Status: Chronic Recommend aggressive glucose monitoring and control to promote wound healing and prevent re-infection. Management per the primary team. SNOMED Code(s): 83244402 (7) Peripheral vascular disease due to secondary diabetes Current Visit: Yes Status: Chronic Bilateral AGUILAR studies normal. TCPO2 monitoring consistent with healing bilaterally. SNOMED Code(s): 628784596, 899997810 - Recommendations Recommendations: Await intraoperative cultures and pathology. Await blood cultures are finalized. Wound care and activity per the podiatry team. Continue vancomycin IV. Pharmacy to dose. Goal trough approximately 15. Continue Zosyn 3.375 g IV every 8 hours. De-escalate antibiotics if/when able based on culture results. Monitor renal function and for drug toxicity and is just antibiotics. Duration of treatment depends on the clinical picture. Past Med Surg Social Fam HX - Past Medical History Medical history: CHF, COPD, diabetes, hyperlipidemia, hypertension Additional medical history: 25% heart functioning Psychiatric history: anxiety, depression - Past Surgical History Surgical History: pacemaker Additional surgical history: colonoscopy,heart cath,lung bx,lt foot,rt elbow,rt wrist, - Social History Smoking Status: Current every day smoker Packs per day: 1 Smokeless Tobacco Status: No Alcohol use: occasionally Drug use: none - Family History Father Living Status: Hx Family Cardiac Disorders: Yes Hx Family Respiratory Disorders: Yes Hx Family Cancer: Yes (Lung and Colon Cancer) Hx Family GI Disorders: Yes (Colon Cancer) Hx Family Endocrine Disorder: Yes (Diabetes) Hx Family Neuromuscular Disorders: No Hx Family Neurologic Disorders: No Hx Family HEENT Disorders: No Hx Family Autoimmune Disorders: No Mother Living Status: Cause of : "Old age" Consult Discharge Plan - Plan Referrals: David Jerez [Primary Care Provider] - Denny Armenta MD [Partnered Physician] - 01/10/19 2:20 pm - Attending Attestation I have personally performed a face to face evaluation on this patient. I have reviewed and agree with the care plan. History and Exam by me shows: This is an addendum to original report dictated by guilherme ramsey CNP. Please refer to Guilherme's note for full detail. Assessment and Plan: 1.Sepsis 2.Osteomyelitis 3.Diabetic foot ulcer 4.HTN 5.Acute Respiratory failure with hypoxia 6.DM II insulint dependent Recommendations: Await intraoperative cultures and pathology. Await blood cultures are finalized. Wound care and activity per the podiatry team. Continue vancomycin IV. Pharmacy to dose. Goal trough approximately 15. Continue Zosyn 3.375 g IV every 8 hours. De-escalate antibiotics if/when able based on culture results. Monitor renal function and for drug toxicity and is just antibiotics. Duration of treatment depends on the clinical picture.
[2018-11-30] MEDS: predniSONE 20 MG TABLET PO SCH (15:51)
[2018-11-30] MEDS: Heparin 25,000 UNIT/250 ML D5W 25,000 UNIT/250 ML IV.SOLN IVC SCH (15:52)
--- NOTE | 2018-11-30 16:04 | Podiatry Progress Note ---
Date of Encounter: 11/30/18 Time of Encounter: 16:01 - Assessment and Plan (1) Diabetic foot ulcer Current Visit: No Status: Acute Assessment: S/P Incision and drainage of multiple planes left foot and Incision and drainage of multiple planes right foot with application of PuraPly antimicrobial wound graft with Dr. Clay on 11/29/18 Large amount of serosanginous drainage noted to bilateral dressings Faint pulses bilaterally Dependent rubor bilaterally WBC 14.7, ESR 101, CRP >300, afebrile XR of right foot negative for any osseous abnormality XR of left foot concerning for subcutaneous gas and oseteomyelitis Surgical cultures, anaerobic cultures, and blood cultures pending ABIs normal bloodflow TCPO2 right ankle 58 right foot 37, left ankle 24, left foot 23 Plan: VAC placed, MWF dressing changes Puraply graft in place Dressing completed, see below Vascular surgery consulted- spoke with Dr. Armenta regarding left lower extremity, nonsalvagable per Dr. Clay, appreciate recommendations Will need social service consult for ECF/rehab placement Left plantar foot with wet to dry dressing placed, macerated tissue painted with betadine, covered with ABD pads, kerlix, and medipore tape Right foot prepped skin with skin prep.. Placed tegaderm drape in window pane fashion. Placed adaptic over purpaply graft. Placed black granulafoam to wound bed. Covered with tegaderm drape. Placed to suction at -125 mmHG. Good seal noted. Secured with drain sponge, kerlix, and SHANIA wrap. Impression: XR/XR foot 3V LT IMPRESSION: Ulceration seen along the plantar aspect of the heel. Questionable osteolysis involving the subjacent calcaneus, raising the possibility of osteomyelitis. D/ / Fco Sethi MD / Fco Sethi MD Interpreting Provider: Fco Sethi MD R #: [id number] XR/XR foot 3V RT IMPRESSION: No bony abnormality D/ / Armen Li MD / Armen Li MD Interpreting Provider: Armen Li MD Qualifiers: Diabetic foot ulcer location: heel Diabetes mellitus type: type 1 Laterality: left Non-pressure ulcer stage: unspecified non-pressure ulcer stage Qualified Code(s): E10.621 - Type 1 diabetes mellitus with foot ulcer; L97.429 - Non-pressure chronic ulcer of left heel and midfoot with unspecified severity Subjective Principal diagnosis: Necrotic ulcers both heels Interval history: Patient alert and oriented, Family at bedside. Denies fevers, chills, nausea, vomiting, or diarrhea. Denies calf pain, chest pain, or shortness of breath. Discussed need for wound vac placedment. Verbalized understanding. Discussed Dr. Zhu findings of non-salvageable left foot, discussed vascular surgery consultation for amputation. Patient and family verbalized understanding. Objective - Vital Signs Vital Signs: Vital Signs Temp Pulse Resp BP Pulse Ox 11/30/18 14:08 97.8 F 69 14 157/83 100 11/30/18 14:00 98 11/30/18 11:26 97.6 F 78 14 156/76 98 11/30/18 11:24 18 100 11/30/18 06:29 96.5 F L 64 15 151/63 93 11/30/18 04:17 98.3 F 70 15 105/67 95 11/30/18 03:43 20 100 11/29/18 23:30 97.8 F 71 21 144/68 100 11/29/18 22:30 97.5 F L 71 21 177/83 100 11/29/18 21:57 70 25 173/82 100 11/29/18 21:33 25 100 11/29/18 20:57 71 16 172/83 99 11/29/18 20:28 97.9 F 67 18 158/84 100 11/29/18 20:18 97.9 F 66 18 163/81 99 11/29/18 20:08 66 18 161/82 98 11/29/18 19:58 71 18 158/78 95 11/29/18 19:48 97.9 F 67 18 157/72 98 11/29/18 19:38 67 18 156/81 100 11/29/18 19:28 72 18 154/72 99 11/29/18 19:18 98.5 F 65 16 157/84 100 Intake and Output 11/30/18 11/30/18 11/30/18 07:59 15:59 23:59 Intake Total 437.9 / 810.0 372.1 / 810.0 Balance 437.9 / 810.0 372.1 / 810.0 Intake: IV Fluids 437.9 / 690.0 252.1 / 690.0 Heparin 25,000 UNIT/250 ML D5W 87.9 / 240.0 152.1 / 240.0 25,000 unit In 250 ml @ 14 UNIT /KG/HR 14.602 mls/hr IVC . Q17H8M [facility] Rx#:[id number] Zosyn 3.375 GM In 0.9 % Sodium 100 / 200 100 / 200 Chloride (Mini-Bag +) 100 ML @ 25 mls/hr IVPB Q8HR [facility] Rx#: [id number] Vancocin 1,500 MG In 0.9 % 250 / 250 Sodium Chloride 250 ML @ 166.67 mls/hr IVPB Q12H [facility] Rx#: [id number] Oral 0 / 120 120 / 120 Other: Meal Lunch Percent of Meal Consumed 100% # Voids 0 0 # Urine Diapers 1 # Bowel Movements 0 Blood Glucose* 48 132 - Exam Exam: Constitiutional: Alert and oriented. No acute distress noted Vascular: Faint DP/PT bilaterally, CFT <3 sec to all digits, warm to cool from tibia to toes bilaterally, no calf pain with squeeze BLE Neurologic: No sensation to touch Dermatologic: Ulceration noted to left foot with tendon exposed, large amount of serosangionus drainage noted to old dressing, maceration noted to left periwound, right plantar foot with puraply graft in tact, surrounding tissue erythematous, dependent rubor noted bilaterally Musculoskeletal: 2/5 muscle strength and normal tone bilaterally. - Lab Result Diagrams: 11/30/18 04:25 11/30/18 04:25 Labs: Abnormal lab results WBC 14.7 K/mcL (4.3-11.1) H 11/30/18 04:25 RBC 3.73 M/mcL (4.19-5.50) L 11/30/18 04:25 Hgb 10.6 g/dL (12.9-16.9) L 11/30/18 04:25 Hct 34.0 % (37.5-50.1) L 11/30/18 04:25 MCHC 31.2 g/dL (31.6-35.5) L 11/30/18 04:25 RDW 14.9 % (11.5-14.5) H 11/30/18 04:25 Neutrophils # 11.3 K/mcL (1.6-8.9) H 11/30/18 04:25 ESR 101 mm/hr (0-10) H 11/25/18 21:51 PT 14.3 Seconds (9.4-12.1) H 11/26/18 01:57 Heparin Anti-Xa, Unfract 0.22 IU/mL (0.30-0.70) L 11/30/18 04:25 ABG pO2 73 mmHg (85-104) L 11/27/18 05:47 ABG Total CO2 27 mEq/L (20-26) H 11/27/18 05:47 ABG O2 Saturation 94 % (95-98) L 11/27/18 05:47 Sodium 133 mEq/L (136-145) L 11/28/18 04:34 Potassium 3.4 mEq/L (3.5-5.1) L 11/29/18 19:30 Chloride 96 mEq/L (98-107) L 11/26/18 01:57 Carbon Dioxide 32 mEq/L (23-29) H 11/30/18 04:25 BUN 24 mg/dL (8-23) H 11/29/18 19:30 BUN/Creatinine Ratio 28 (6-26) H 11/29/18 19:30 Glucose 55 mg/dL (70-105) L 11/30/18 04:25 POC Glucose 132 mg/dL (70-99) H 11/30/18 15:14 Hemoglobin A1c 10.9 % (-5.6) H 11/26/18 01:57 Calculated Osmolality 301 (280-300) H 11/29/18 03:48 Calcium 8.5 mg/dL (8.6-10.3) L 11/30/18 04:25 C-Reactive Protein > 300 mg/L (Less than 10) H 11/25/18 21:51 Serum Total Protein 6.3 g/dL (6.4-8.9) L 11/26/18 01:57 Albumin 2.4 g/dL (3.5-5.7) L 11/26/18 01:57 Globulin 3.9 g/dL (2.4-3.5) H 11/26/18 01:57 Albumin/Globulin Ratio 0.6 (1.1-2.2) L 11/26/18 01:57 HDL Cholesterol 33 mg/dL (40-59) L 11/26/18 01:57 Urine Clarity Cloudy (Clear) A 11/26/18 06:11 Ur Specific [place] > 1.030 (1.010-1.025) H 11/26/18 06:11 Urine Protein >=300 mg/dL (Neg-Trace) H 11/26/18 06:11 Urine Glucose (UA) >=1000 mg/dL (Normal) H 11/26/18 06:11 Urine Blood Small (Negative) H 11/26/18 06:11 Urine Bilirubin Small (Negative) H 11/26/18 06:11 Urine Microscopic RBC 5-15 per hpf (0-3) H 11/26/18 06:11 Urine Microscopic WBC 5-15 per hpf (0-3) H 11/26/18 06:11 Ur Squamous Epith Cells Many per lpf (None-Few) H 11/26/18 06:11 Vancomycin Trough 14 mcg/mL (5-10) H 11/27/18 14:04 Microbiology, Last 48 Hours 11/29/18 18:56 Surgical Biopsy Culture - Preliminary Right Foot 11/29/18 18:56 Surgical Biopsy Culture - Preliminary Left Foot 11/29/18 18:56 Wound Culture - Preliminary Right Foot Culture is incubating. 11/29/18 18:56 Anaerobic Culture - Preliminary Right Foot Culture is incubating. 11/29/18 18:56 Wound Culture - Preliminary Left Foot Culture is incubating. 11/29/18 18:56 Anaerobic Culture - Preliminary Left Foot Culture is incubating. Consult Discharge Plan - Plan Referrals: David Jerez [Primary Care Provider] -
--- NOTE | 2018-11-30 16:56 | Vascular/Endovasc Consult Note ---
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 The patient is a nonhealing left foot ulceration with surrounding osteomyelitis. He has been seen and evaluated by podiatry. Podiatry has determined that the left lower extremity wound is nonsalvageable. The left below-knee amputation is recommended. The risks, benefits and alternatives were discussed the patient and all questions were answered. He is understanding and wishes to proceed. Qualifiers: Peripheral atherosclerosis artery type: ramona artery Qualified Code(s): I70.244 - Atherosclerosis of ramona arteries of left leg with ulceration of heel and midfoot (2) HTN (hypertension) Status: Chronic The patient was counseled regarding atherosclerotic risk factor reduction. Qualifiers: Hypertension type: essential hypertension Qualified Code(s): I10 - Essential (primary) hypertension (3) Osteomyelitis Status: Acute The patient has osteomyelitis and is currently receiving intravenous antibodies. He denies any fevers or chills. Qualifiers: Osteomyelitis type: acute hematogenous Osteomyelitis location: foot Laterality: unspecified laterality Qualified Code(s): M86.079 - Acute hematogenous osteomyelitis, unspecified ankle and foot - History of Present Illness Consult date: 11/30/18 Requesting physician: Sherin Herrmann Consult reason: PVD Chief complaint: Peripheral vascular disease with nonhealing ulceration History of present illness: Mr. Best is a 77 year old male with a history of diabetes, congestive heart failure, COPD, peripheral vascular disease with ulceration and peripheral neuropathy. The patient presented to [facility] with nonhealing ulcerations with cellulitis and possible osteomyelitis. He was treated with intravenous antibiotics and taken to the operating room by podiatry. After debridement was performed podiatry determined that there was not sufficient viable tissue to salvage the foot. Vascular surgery was counseled for further evaluation. At the time of evaluation the patient is comfortable and alert. He denies any fevers or chills. He denies any chest pain or shortness breath. He reports adequate pain control. Past Med Surg Social Fam HX - Past Medical History Medical history: CHF, COPD, diabetes, hyperlipidemia, hypertension Additional medical history: 25% heart functioning Psychiatric history: anxiety, depression - Past Surgical History Surgical History: pacemaker Additional surgical history: colonoscopy,heart cath,lung bx,lt foot,rt elbow,rt wrist, - Social History Smoking Status: Current every day smoker Packs per day: 1 Smokeless Tobacco Status: No Alcohol use: occasionally Drug use: none - Family History Father Living Status: Hx Family Cardiac Disorders: Yes Hx Family Respiratory Disorders: Yes Hx Family Cancer: Yes (Lung and Colon Cancer) Hx Family GI Disorders: Yes (Colon Cancer) Hx Family Endocrine Disorder: Yes (Diabetes) Hx Family Neuromuscular Disorders: No Hx Family Neurologic Disorders: No Hx Family HEENT Disorders: No Hx Family Autoimmune Disorders: No Mother Living Status: Cause of : "Old age" Medications and Allergies Aspirin 81 mg PO DAILY 02/12/15 [History] Atorvastatin [Lipitor] 40 mg PO HS 02/18/17 [History] DULoxetine [Cymbalta] 30 mg PO DAILY 02/18/17 [History] Potassium Chloride [Klor-Con 10] 20 meq PO BID 02/18/17 [History] Albuterol Neb [Proventil Neb] 90 mcg IH Q6HR PRN 11/26/18 [History] Apixaban [Eliquis] 5 mg PO BID 11/26/18 [History] Budesonide/Formoterol 160/4.5 [Symbicort 160/4.5] 2 puff IH BIDR 11/26/18 [History] Cholecalciferol (Vitamin D3) [Vitamin D3] 4,000 unit PO TID 11/26/18 [History] Furosemide [Lasix] 40 mg PO TID 11/26/18 [History] Ipratropium/Albuterol Sulfate [Iprat-Albut 0.5-3(2.5) mg/3 ml] 3 ml IH Q6HR PRN 11/26/18 [History] Levalbuterol HCl [Xopenex Concentrate] 1.25 mg IH Q4HR PRN 11/26/18 [History] Levalbuterol HCl [Xopenex Concentrate] 1.25 mg IH Q6HR 11/26/18 [History] Magnesium Oxide [Magnesium] 400 mg PO BID 11/26/18 [History] Metoprolol Succinate [Toprol Xl] 50 mg PO DAILY 11/26/18 [History] Oxybutynin Chloride [Ditropan XL] 5 mg PO BID 11/26/18 [History] Fenofibrate Nanocrystallized [Fenofibrate] 145 mg PO DAILY 11/27/18 [History] Gentamicin Sulfate Cream [Garamycin] 1 appl TP TID 11/27/18 [History] Metformin HCl 1,000 mg PO BID 11/27/18 [History] Tiotropium [Spiriva] 1 puff PO DAILY 11/27/18 [History] Ertapenem Sodium [Ertapenem] 1 gm IV DAILY 42 Days #42 vial 12/05/18 [Rx] Gabapentin [Neurontin] 600 mg PO BID 3 Days #6 tablet 12/05/18 [Rx] Insulin LISPRO [HumaLOG] 0 units SQ HS vial 12/05/18 [Rx] Insulin LISPRO [HumaLOG] 0 units SQ TIDAC vial 12/05/18 [Rx] Insulin NPH, HUMAN [HumuLIN N] 35 unit SQ BID [id number] 12/05/18 [Rx] Oxycodone HCl/Acetaminophen [Percocet 5-325 mg Tablet] 1 each PO Q6HR PRN 3 Days #9 tablet 12/05/18 [Rx] predniSONE [PredniSONE] 20 mg PO DAILY 2 Days #2 tablet 12/05/18 [Rx] Vancomycin/0.9 % Sod Chloride [Vanco 1.5 gm/150 ml-0.9% NaCl] 1.5 gm IV DAILY #42 plast..bag 12/06/18 [Rx] Allergy/AdvReac Type Severity Reaction Status Date / Time Sulfa (Sulfonamide Allergy Severe Itching, Verified 11/27/18 18:37 Antibiotics) hives, rash Latex, Natural Rubber Allergy Rash Verified 11/27/18 18:37 Tape Allergy Severe Pulls skin Uncoded 11/27/18 18:37 off All Systems Review: The remainder of the systems were reviewed and are negative - Constitutional Constitutional: no chills, no fever(s) Exam Vital Signs, Last 4 Hours Temp Pulse Resp BP Pulse Ox 11/30/18 16:08 18 100 11/30/18 14:08 97.8 F 69 14 157/83 100 11/30/18 14:00 98 General: Present: Conversant, No Apparent Distress HEENT: Present: Trachea midline, Pupils equal Neck: Absent: JVD, Lymphadenopathy, Left Carotid bruit, Right Carotid bruit Cardiac: Present: Reg Rate and Rhythm, Normal S1 and S2 Lungs: Present: Normal Breath Sounds, No Wheeze, Rales, Rhonchi Neuro: Present: Alert and responsive, No focal deficits noted, Motor nerves grossly intact, Other (Peripheral neuropathy) Abdomen: Present: Soft, Non-tender. Absent: Masses Vascular: Present: Pulse, absent (Pedal pulses absent), Edema (Trace bilateral lower extremity) Skin: Present: Wound/ulcer(s) (Wound VAC is in place on the right lower extremity ulcer. Left foot ulcer has necrotic margins on the heel with exposed bone and surrounding erythema) Consult Discharge Plan - Plan Referrals: David Jerez [Primary Care Provider] - Denny Armenta MD [Partnered Physician] - 01/10/19 2:20 pm Sherin Julien CNP [Advanced Practice Nurse] - 12/29/18 2:20 pm Cruzito Clay DPM [Partnered Physician] - 12/14/18 1:00 pm (The appointment will be in the [facility]. [phone] Thank you ) Prescriptions: Ertapenem Sodium [Ertapenem] 1 gm IV DAILY 42 Days #42 vial Gabapentin [Neurontin] 600 mg PO BID 3 Days #6 tablet Oxycodone HCl/Acetaminophen [Percocet 5-325 mg Tablet] 1 each PO Q6HR PRN 3 Days #9 tablet PRN Reason: Pain Vancomycin/0.9 % Sod Chloride [Vanco 1.5 gm/150 ml-0.9% NaCl] 1.5 gm IV DAILY #42 plast..bag
[2018-11-30] MEDS ORDERED: Insulin LISPRO 300 UNITS/3 ML VIAL SQ SCH (21:00)
[2018-12-01] MEDS: Piperacillin/Tazobactam 3.375 GM in 0.9 % Sodium Chloride Mini Bag 100 ML IVPB SCH ×2 (00:26→08:22)
[2018-12-01] MEDS: *HR* OxyCODONE/APAP 5/325 TABLET PO PRN ×4 (00:33→21:18)
--- NOTE | 2018-12-01 01:51 | Anesthesia Evaluation PreOp ---
Date of Encounter: 12/01/18 Time of Encounter: 01:50 - Past History Planned Operation: Right BKA Cardiac History: CHF (CHF (11/27/18 EV/EV echocardiogram Impressions: Frequent PVCs. LVEF 30-35%. Severe global left ventricular systolic dysfunction. Mildly dilated left ventricle. Indeterminate diastolic function. Normal right ventricular structure and function. Mild biatrial dilatation. Moderate aortic stenosis with mild-moderate aortic regurgitation. Mild mitral regurgitation. Mild tricuspid regurgitation. Moderate pulmonary hypertension. 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: Denies Any Significant HX Other Medical History: Diabetes Type II, GERD Anesthesia History: No Prior Anesthetic Complications, Past Anesthesia (sybil foot I&D) Alcohol Use: occasionally Drug use: none Medications and Allergies Aspirin 81 mg PO DAILY 02/12/15 [History] Gabapentin [Neurontin] 600 mg PO BID 02/12/15 [History] Atorvastatin [Lipitor] 40 mg PO HS 02/18/17 [History] DULoxetine [Cymbalta] 30 mg PO DAILY 02/18/17 [History] Glimepiride [Amaryl] 4 mg PO DAILY 02/18/17 [History] Potassium Chloride [Klor-Con 10] 20 meq PO BID 02/18/17 [History] Albuterol Neb [Proventil Neb] 90 mcg IH Q6HR PRN 11/26/18 [History] Apixaban [Eliquis] 5 mg PO BID 11/26/18 [History] Budesonide/Formoterol 160/4.5 [Symbicort 160/4.5] 2 puff IH BIDR 11/26/18 [History] Cholecalciferol (Vitamin D3) [Vitamin D] 4,000 unit PO TID 11/26/18 [History] Doxycycline Hyclate [Morgidox] 100 mg PO BID 11/26/18 [History] Furosemide [Lasix] 40 mg PO TID 11/26/18 [History] Gabapentin [Neurontin] 800 mg PO TID 11/26/18 [History] Ipratropium/Albuterol Sulfate [Iprat-Albut 0.5-3(2.5) mg/3 ml] 3 ml IH Q6HR PRN 11/26/18 [History] Levalbuterol HCl [Xopenex Concentrate] 1.25 mg IH Q4HR PRN 11/26/18 [History] Levalbuterol HCl [Xopenex Concentrate] 1.25 mg IH Q6HR 11/26/18 [History] Magnesium Oxide [Magnesium] 400 mg PO BID 11/26/18 [History] Metoprolol Succinate [Toprol Xl] 50 mg PO DAILY 11/26/18 [History] Morphine Oral CONC [Roxanol] 0.25 ml PO Q3H PRN 11/26/18 [History] Oxybutynin Chloride [Ditropan XL] 5 mg PO BID 11/26/18 [History] Oxycodone HCl/Acetaminophen [Percocet 5-325 mg Tablet] 1 - 2 each PO Q6HR PRN 11/26/18 [History] Valsartan [Diovan] 160 mg PO DAILY 11/26/18 [History] diazePAM [Valium] 5 mg PO BID 11/26/18 [History] Fenofibrate Nanocrystallized [Fenofibrate] 145 mg PO DAILY 11/27/18 [History] Gentamicin Sulfate Cream [Garamycin] 1 appl TP TID 11/27/18 [History] Metformin HCl 1,000 mg PO BID 11/27/18 [History] Non-Formulary Medication 0 each PO AD 11/27/18 [History] Tiotropium [Spiriva] 1 puff PO DAILY 11/27/18 [History] Allergy/AdvReac Type Severity Reaction Status Date / Time Sulfa (Sulfonamide Allergy Severe Itching, Verified 11/27/18 18:37 Antibiotics) hives, rash Latex, Natural Rubber Allergy Rash Verified 11/27/18 18:37 Tape Allergy Severe Pulls skin Uncoded 11/27/18 18:37 off - Meds/Allergy Pre-op Review Medications Reviewed: Yes Allergies Reviewed: Yes Beta Blockers on Current Med List: Yes Anesthesia Results - Labs 11/30/18 04:25 11/30/18 04:25 - Imaging EKG: report reviewed ((SR with prolonged PA) Anesthesia Exam Vital Signs/O2 Sat, Most Current Temp Pulse Resp BP Pulse Ox 97.6 F 67 18 123/52 96 11/30/18 23:27 11/30/18 23:27 11/30/18 23:27 11/30/18 23:27 11/30/18 23:27 Weight: 109kg NPO (# of Hours): MN - HEENT Pupil (Motor): Pupils equal, EOMI Mallampati: III Teeth: Missing Oral Opening: Greater than 3 Anesthesia Assess/Plan ASA Score: 4 Anesthetic Plan: General Monitoring Plan: Standard Monitors Recovery Plan: PACU
[2018-12-01] MEDS: Ipratropium/Albuterol Neb 3 ML IH SCH ×5 (04:00→22:02)
[2018-12-01] MEDS: Heparin 25,000 UNIT/250 ML D5W 25,000 UNIT/250 ML IV.SOLN IVC SCH ×2 (05:41→21:16)
[2018-12-01] MEDS: Insulin LISPRO 300 UNITS/3 ML VIAL SQ SCH ×3 (08:20→22:51)
[2018-12-01] MEDS: Fenofibrate 54 MG TABLET PO SCH (08:23)
[2018-12-01] MEDS: Metoprolol XL (24 HR) Succ 50 MG TAB.ER.24H PO SCH (08:23)
[2018-12-01] MEDS: Cholecalciferol (D-3) 1,000 UNIT (25MCG) TABLET PO SCH (08:23)
[2018-12-01] MEDS: Aspirin 81 MG TAB.CHEW PO SCH (08:23)
[2018-12-01] MEDS: predniSONE 20 MG TABLET PO SCH (08:24)
--- NOTE | 2018-12-01 08:43 | Internal Med Progress Note ---
Hospitalist Progress Note - Encounter Date of Encounter: 12/01/18 Time of Encounter: 08:43 - Subjective Interval History: Patient seen and examined this morning. No acute overnight events. Complain of mild shortness of breath. Denies any fever or chills nausea vomiting or diarrhea. Denies any abdominal pain. Has numbness in both feet. - Exam Vitals: Temp Pulse Resp BP Pulse Ox 97.7 F 66 18 167/75 94 12/01/18 06:52 12/01/18 06:52 12/01/18 06:52 12/01/18 06:52 12/01/18 06:52 Exam: General: In no acute distress. Respiratory exam: no accessory muscle use. decreased air entry. CTAB Cardiovascular exam: RRR, +S1, +S2. no murmur, gallop, rubs. GI/Abdominal exam: Non-tender, Non-distended, normal bowel sounds, soft, no peritoneal signs. Extremities exam: 1+ pedal edema on Rt, dressing on both foot. decreased sensation on lt leg till lower third. decreased sensation on Rt toes. Neurological exam: CN II-XII intact, AO X3, no focal deficits except as above Skin exam: b/l LE chronic dermatitis on higgins. - Assessment and Plan (1) HTN (hypertension) Current Visit: Yes Status: Chronic (2) Insulin dependent diabetes mellitus Current Visit: Yes Status: Chronic (3) Peripheral vascular disease due to secondary diabetes Current Visit: Yes Status: Chronic (4) Foot ulcer with necrosis of bone Current Visit: Yes Status: Acute (5) Hyponatremia Current Visit: Yes Status: Acute (6) Code status needs review Current Visit: Yes Status: Chronic (7) Acute respiratory failure with hypoxia Current Visit: Yes Status: Acute - Summary of Assessment and Plan Summary of Assessment and Plan: Assessment Acute Sepsis-resolved Diabetic foot ulcer with ulcer, necrosis and osteomyelitis on both LE acute hypoxic respiratory failure with hypoxia- resolved COPD exacerbation Pneumonia- RLB Hypoglycemia Psuedohyponatremia-resolved Uncontrolled diabetes Recent PE. Chronic HTN PAD Diabetes related Neuropathy and nephropathy IDDM COPD HLD CAD Plan - Clinically doing better. c/w empric vancoycin and zosyn. s/p surgery 11/29 on both feet. Significant for abscesses, necrosis and osteomyelitis. Lt foot unlikely to be salvagable. Appreciate Vascular surgery recommendation. Plan for surgery today. Discussed higher than average cardiac surgical risk given his cardiomyopathy. currently without chest pain. f/u surgical cultures, now growing GNR. anerobic culture pending. Blood culture 11/25 NGTD. Will likely need detention IV abx. ID following. Will discuss about stopping vancomycin. - CXR with possible aspiration and/or pulm vascular congestion. stop lasix. c/w empiric antibitoics as above. c/w prednisone taper. c/w scheduled bronchodilators. - Uncontrolled DM with A1c of 10.9. lantus held given hypoglycemia. resume at 10 BID give BG elevated with steroid. c/w accuchecks. - BP stable. Hold home antihypertensive except metoprolol. - c/w heparin drip given recent PE. hold eliquis. - Hold diazepam and gabapentin. - His code status is DNR CCA but ok with surgery. At some point recently he was also hospice. Depending on further evaluation with continue discussion. Internal Medicine: Result - Labs CBC & Chem 7: 11/30/18 04:25 11/30/18 04:25 - ABG Interpretation ABG results: ABG ABG pH 7.40 pH Units (7.32-7.45) 11/27/18 05:47 ABG pCO2 41 mmHg (35-45) 11/27/18 05:47 ABG pO2 73 mmHg (85-104) L 11/27/18 05:47 ABG O2 Saturation 94 % (95-98) L 11/27/18 05:47 PT/INR, D-dimer PT 11.0 Seconds (9.4-12.1) 11/28/18 13:10 Consult Discharge Plan - Plan Referrals: David Jerez [Primary Care Provider] - (1) HTN (hypertension) Qualifiers: Qualified Code(s): I10 - Essential (primary) hypertension (4) Foot ulcer with necrosis of bone Qualifiers: Qualified Code(s): L97.504 - Non-pressure chronic ulcer of other part of unspecified foot with necrosis of bone
--- NOTE | 2018-12-01 09:30 | Infectious Disease Progress No ---
ID Progress Note Date of Encounter: 12/01/18 Time of Encounter: 09:27 - Subjective Subjective: Patient seen and examined. No acute events noted overnight. Patient complains of an aching pain in the left lower extremity. Denies fevers, chills, rigors. Denies chest pain. States shortness of breath and cough are at baseline. Denies nausea, vomiting, diarrhea, or constipation. Denies abdominal pain or urinary complaints. Denies oral thrush or skin rashes. Pending left BKA later today. - Objective CBC & Chem 7: 12/02/18 03:30 12/02/18 03:30 - Exam Vitals: Temp Pulse Resp BP Pulse Ox 97.7 F 66 18 167/75 94 12/01/18 06:52 12/01/18 06:52 12/01/18 06:52 12/01/18 06:52 12/01/18 06:52 Exam: Head: Atraumatic, normal inspection, normocephalic. Eye: EOMI, PERRLA, no scleral icterus noted. ENT: Mucous membranes moist. No odontogenic infection noted. Neck: Normal inspection, no meningismus. Respiratory: Clear to auscultation. No rales, respiratory distress, rhonchi, or wheezes noted. Cardiovascular: Regular rate and rhythm, S1 and S2 audible. No murmurs, rubs, or gallops. GI: Soft, nondistended, normal bowel sounds. Extremities:No joint swelling or tenderness noted. BLE venous stasis dermatitis noted. Bilateral foot dressings with small amounts of old bloody drainage noted 1+ edema noted to the BLE. Neurological: Alert, oriented 3, no focal deficits. Psychiatric: normal affect, normal mood. Skin: Dry, intact, warm. Normal color. No rashes. - Assessment and Plan (1) Sepsis Current Visit: Yes Status: Acute The patient had 3 sepsis criteria. Likely secondary to bilateral foot infection. Improved. White blood cell count not this morning. Tachycardia resolved. He has been afebrile. Blood cultures drawn 11/25/18 are negative 2 sets. Qualifiers: Sepsis type: sepsis due to unspecified organism Qualified Code(s): A41.9 - Sepsis, unspecified organism SNOMED Code(s): 99253294 (2) Osteomyelitis Current Visit: Yes Status: Acute Location: Bilateral feet. Causative organism: Unclear. Intraoperative cultures are positive for gram- negative rods. Etiology: Likely multifactorial. Uncontrolled diabetes, tobacco use, diabetic foot ulcers. X-ray of the left foot showed findings concerning for osteomyelitis of the calcaneus. Right foot x-ray showed no acute osseous abnormality. ESR 101, CRP greater than 300. Bilateral lower extremity ABIs were normal. TCP O2 monitoring consistent with healing bilaterally. Podiatry consulted. Status post I&D of the left and right foot 11/29/[address] Clay. Operative note reviewed. Purulent noted beneath the fascia and near the bone. Intraoperative cultures are positive for gram-negative rods with final ID and sensitivities pending, and pathology is pending. Per podiatry, left foot is unsalvageable. Vascular surgery consult it. Compl eting left BKA later today. Currently on vancomycin and Zosyn. Qualifiers: Osteomyelitis type: acute hematogenous Osteomyelitis location: foot Laterality: unspecified laterality Qualified Code(s): M86.079 - Acute hematogenous osteomyelitis, unspecified ankle and foot SNOMED Code(s): 37309977 (3) Diabetic foot ulcer Current Visit: No Status: Acute Location: Bilateral heels. Podiatry consulted and following. Qualifiers: Diabetic foot ulcer location: heel Diabetes mellitus type: type 1 Laterality: left Non-pressure ulcer stage: unspecified non-pressure ulcer stage Qualified Code(s): E10.621 - Type 1 diabetes mellitus with foot ulcer; L97.429 - Non-pressure chronic ulcer of left heel and midfoot with unspecified severity SNOMED Code(s): 009824308 (4) HTN (hypertension) Current Visit: Yes Status: Chronic Qualifiers: Hypertension type: essential hypertension Qualified Code(s): I10 - Essen tial (primary) hypertension SNOMED Code(s): 76844196 (5) Acute respiratory failure with hypoxia Current Visit: Yes Status: Acute Acute on chronic. CXR concerning for atelectasis vs. PNA. vs. aspiration. Repeat CXR showed resolution of left basilar airspace disease and no change in the right base airspace disease. Low index of suspicion for PNA based on clinical picture. Appears back to baseline. SNOMED Code(s): 89585596, 016834579 (6) Insulin dependent diabetes mellitus Current Visit: Yes Status: Chronic Recommend aggressive glucose monitoring and control to promote wound healing and prevent re-infection. Management per the primary team. SNOMED Code(s): 35081710 (7) Peripheral vascular disease due to secondary diabetes Current Visit: Yes Status: Chronic Bilateral AGUILAR studies normal. TCPO2 monitoring consistent with healing bilaterally. SNOMED Code(s): 709065952, 912461493 - Recommendations Recommendations: Await intraoperative cultures and pathology. Wound care and activity per the podiatry team. BKA management per the Vascular team. Continue vancomycin IV. Pharmacy to dose. Goal trough approximately 15. Continue Zosyn 3.375 g IV every 8 hours. De-escalate antibiotics if/when able based on culture results. Monitor renal function and for drug toxicity and is just antibiotics. Duration of treatment depends on the clinical picture. Consult Discharge Plan - Plan Referrals: David Jerez [Primary Care Provider] - Denny Armenta MD [Partnered Physician] - 01/10/19 2:20 pm Sherin Julien CNP [Advanced Practice Nurse] - 12/29/18 2:20 pm - Attending Attestation I have personally performed a face to face evaluation on this patient. I have reviewed and agree with the care plan. History and Exam by me shows: Assessment and Plan: 1.Sepsis 2.Osteomyelitis bilateral feet; causative organims pending. going for amputation of R BKA 3.Diabetic foot ulcer 4.HTN 5.Acute Respiratory failure with hypoxia 6.DM II insulint dependent Recommendations: continue vancomycin and zosyn for now will tailor antibiotics once cultures finalize duration of treatment at least 6 weeks.
[2018-12-01] MEDS ORDERED: Insulin NPH 100 UNIT/ML (x5UNIT) SQ SCH (09:43)
[2018-12-01] MEDS: Budesonide/Formoterol 160/4.5 1 PUFF INH IH SCH ×2 (10:53→22:02)
[2018-12-01] MEDS ORDERED: Vancomycin 1,000 MG, Sodium Chloride IRRigation 1,000 ML IR ONE ×2 (15:15→20:32)
--- NOTE | 2018-12-01 15:31 | Anesthesia Evaluation PreOp ---
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 Any Significant HX Other Medical History: Diabetes Type II, GERD Anesthesia History: No Prior Anesthetic Complications, Past Anesthesia Alcohol Use: occasionally Drug use: none Medications and Allergies Aspirin 81 mg PO DAILY 02/12/15 [History] Gabapentin [Neurontin] 600 mg PO BID 02/12/15 [History] Atorvastatin [Lipitor] 40 mg PO HS 02/18/17 [History] DULoxetine [Cymbalta] 30 mg PO DAILY 02/18/17 [History] Glimepiride [Amaryl] 4 mg PO DAILY 02/18/17 [History] Potassium Chloride [Klor-Con 10] 20 meq PO BID 02/18/17 [History] Albuterol Neb [Proventil Neb] 90 mcg IH Q6HR PRN 11/26/18 [History] Apixaban [Eliquis] 5 mg PO BID 11/26/18 [History] Budesonide/Formoterol 160/4.5 [Symbicort 160/4.5] 2 puff IH BIDR 11/26/18 [History] Cholecalciferol (Vitamin D3) [Vitamin D] 4,000 unit PO TID 11/26/18 [History] Doxycycline Hyclate [Morgidox] 100 mg PO BID 11/26/18 [History] Furosemide [Lasix] 40 mg PO TID 11/26/18 [History] Gabapentin [Neurontin] 800 mg PO TID 11/26/18 [History] Ipratropium/Albuterol Sulfate [Iprat-Albut 0.5-3(2.5) mg/3 ml] 3 ml IH Q6HR PRN 11/26/18 [History] Levalbuterol HCl [Xopenex Concentrate] 1.25 mg IH Q4HR PRN 11/26/18 [History] Levalbuterol HCl [Xopenex Concentrate] 1.25 mg IH Q6HR 11/26/18 [History] Magnesium Oxide [Magnesium] 400 mg PO BID 11/26/18 [History] Metoprolol Succinate [Toprol Xl] 50 mg PO DAILY 11/26/18 [History] Morphine Oral CONC [Roxanol] 0.25 ml PO Q3H PRN 11/26/18 [History] Oxybutynin Chloride [Ditropan XL] 5 mg PO BID 11/26/18 [History] Oxycodone HCl/Acetaminophen [Percocet 5-325 mg Tablet] 1 - 2 each PO Q6HR PRN 11/26/18 [History] Valsartan [Diovan] 160 mg PO DAILY 11/26/18 [History] diazePAM [Valium] 5 mg PO BID 11/26/18 [History] Fenofibrate Nanocrystallized [Fenofibrate] 145 mg PO DAILY 11/27/18 [History] Gentamicin Sulfate Cream [Garamycin] 1 appl TP TID 11/27/18 [History] Metformin HCl 1,000 mg PO BID 11/27/18 [History] Non-Formulary Medication 0 each PO AD 11/27/18 [History] Tiotropium [Spiriva] 1 puff PO DAILY 11/27/18 [History] Allergy/AdvReac Type Severity Reaction Status Date / Time Sulfa (Sulfonamide Allergy Severe Itching, Verified 11/27/18 18:37 Antibiotics) hives, rash Latex, Natural Rubber Allergy Rash Verified 11/27/18 18:37 Tape Allergy Severe Pulls skin Uncoded 11/27/18 18:37 off - Meds/Allergy Pre-op Review Medications Reviewed: Yes Allergies Reviewed: Yes Beta Blockers on Current Med List: Yes If Beta Blockers taken, Date/Time (Last Dose taken): 12/01/2018 at 0823 Anesthesia Results - Labs 11/30/18 04:25 11/30/18 04:25 - Imaging EKG: report reviewed (11/25/2018 Sinus rhythm Ventricular premature complex Prolonged CA interval) Additional studies: 11/27/2018 Echo Impressions: Frequent PVCs. LVEF 30-35%. Severe global left ventricular systolic dysfunction. Mildly dilated left ventricle. Indeterminate diastolic function. Normal right ventricular structure and function. Mild biatrial dilatation. Moderate aortic stenosis with mild-moderate aortic regurgitation. Mild mitral regurgitation. Mild tricuspid regurgitation. Moderate pulmonary hypertension. Ordering physician notified via Contrib. Aortic Valve Peak Hay: 3.79 m/sec Mean Hay: 2.42 m/sec Peak Grad: 57.00 mmHg Mean Grad: 28.00 mmHg Valve Area: 1.54 cm2 AI pressure Half-time: 358.00 msec 03/25/2016 Stress Impression: Perfusion imaging was negative for ischemia or infarct. Pharmacologic ECG was negative for ischemia at the level of heart rate achieved. Occasional PACs and rare PVCs during testing. Gated EF = 45%. 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
[2018-12-01] MEDS ORDERED: Heparin 1,000 UNITS/500 mL 500 ML ONE (16:00)
[2018-12-01] MEDS ORDERED: ceFAZolin 2,000 MG in Water for inj. (sterile) 20 ML IVP STA (16:18)
[2018-12-01] MEDS ORDERED: *HR* Phenylephrine 10 MG/ML VIAL ONE (16:23)
[2018-12-01] MEDS ORDERED: Lidocaine -MPF 2% 2 ML VIAL ONE (16:23)
[2018-12-01] MEDS ORDERED: *HR* Succinylcholine 200 MG/10 ML VIAL IVP ONE (16:23)
[2018-12-01] MEDS ORDERED: Lidocaine -MPF 4% 5 ML AMPUL ONE (16:23)
[2018-12-01] MEDS ORDERED: Dexamethasone 4 MG/ML VIAL ONE (16:23)
[2018-12-01] MEDS ORDERED: Ondansetron 4 MG/2 ML VIAL ONE (16:23)
[2018-12-01] MEDS ORDERED: *HR* Etomidate 40 MG/20 ML VIAL IVP ONE (16:24)
[2018-12-01] MEDS ORDERED: *HR* FentaNYL (PF) 100 MCG/2 ML VIAL ONE (16:24)
[2018-12-01] MEDS ORDERED: Calcium Gluconate 1,000 MG/10 ML VIAL ONE (16:45)
[2018-12-01] MEDS: *HR* HYDROmorphone (PF) 1 MG/ML SYRINGE IVP PRN ×3 (18:55→19:05)
--- NOTE | 2018-12-01 19:30 | Anesthesia Evaluation Post Op ---
Date of Encounter: 12/01/18 Time of Encounter: 19:29 - Vital Signs Vital Signs: Vital Signs/O2 Sat, Most Current Temp Pulse Resp BP Pulse Ox 97.6 F 60 18 144/87 97 12/01/18 19:11 12/01/18 19:21 12/01/18 19:21 12/01/18 19:21 12/01/18 19:21 - Lungs Lungs: Clear Ascult./Percussion - Airway Airway: Non-obstructed - Cardiovascular Baseline Rhythm - Mental Status Mental Status: Baseline Status - Pain Pain Scale: 0 Pain Scale used: Numeric (1 - 10) - Nausea Vomiting Nausea Vomiting: Not Present - Hydration Hydration: NPO, Collier catheter - Discharge PostOp Status: Transfer Patient to floor
--- NOTE | 2018-12-01 19:33 | Operative Note ---
Date of procedure: 12/01/18 Pre-op diagnosis: Vascular disease with ulceration, osteomyelitis Post-op diagnosis: same Procedure: Left below-knee amputation Complications: None Anesthesia: GETA Surgeon: Denny Armenta Was there an video library assistant present: No Estimated blood loss (cc): 200 Specimen: Left lower extremity Condition: stable Disposition: PACU Procedure in Detail: Indications: The patient is an 77-year-old male with a history of diabetes, hypertension, hyperlipidemia and peripheral vascular disease with ulceration. He was found have osteomyelitis of left lower extremity. Despite debridement by podiatry the limb was deemed nonsalvageable by podiatry. A left below-knee amputation was recommended. The patient expressed understanding and was agreeable to the plan. Procedure: The patient was identified in the holding area. The risks, benefits and alternatives were discussed and all questions were answered. The patient was taken to the operating room and placed in the supine position on the operating room table. After the induction of general endotracheal anesthesia, the patient was cleaned and draped in the normal sterile fashion. The planned skin incision was marked along the left leg including a gastrocnemius flap. The skin was incised with a #15 blade. Using a process of blunt, sharp and electrocautery dissection, the muscle fascia was traversed. The periosteum was elevated off of the tibia. Using a powered saw, a notch was made in the anterior surface of the tibia and the tibia was then transected. The periosteum was elevated off the fibula and the fibula was divided with a bone cutter. The soft tissues were divided along the incision with an amputation knife. The artery and vein were clamped and then suture ligated with 0 silk suture. The nerve was grasped and transected as high as possible. The wound was irrigated. Meticulous hemostasis was obtained through out the wound with electrocautery. The fascial layers were reapproximated with Vicryl suture. Skin was reapproximated with douglas. A sterile dressing was applied. The patient was extubated and taken to the recovery room in stable condition.
[2018-12-01] MEDS ORDERED: *HR* Dextrose 50 % in Water (Syg) 50 ML SYRINGE IVP PRN (20:32)
[2018-12-01] MEDS ORDERED: Ondansetron 4 MG/2 ML VIAL IVP PRN (20:32)
[2018-12-01] MEDS ORDERED: Dextrose Gel 15 GM/37.5 ML TUBE PO PRN ×2 (20:32)
[2018-12-01] MEDS ORDERED: hydrALAZINE 10 MG TABLET PO PRN (20:32)
[2018-12-01] MEDS ORDERED: Ipratropium/Albuterol Neb 3 ML IH PRN (20:32)
[2018-12-01] MEDS ORDERED: D5% in Water 1,000 ML IVC PRN (20:32)
[2018-12-01] MEDS ORDERED: *HR* Heparin 5,000 UNIT/ML VIAL IVP PRN ×2 (20:32)
[2018-12-01] MEDS ORDERED: Naloxone 0.4 MG/ML INJ IVP PRN (20:32)
[2018-12-01] MEDS: Insulin NPH 100 UNIT/ML (x5UNIT) SQ SCH (22:50)
[2018-12-02] MEDS: Ipratropium/Albuterol Neb 3 ML IH SCH ×4 (03:07→22:07)
[2018-12-02] MEDS: *HR* OxyCODONE/APAP 5/325 TABLET PO PRN ×3 (03:56→17:00)
[2018-12-02 03:57] LABS: Basophils % 0.1 %; Eosinophils % 0.1 %; Hematocrit 30.4 % (37.5-50.1); Hemoglobin 9.4 g/dL (12.9-16.9); Immature Granulocytes % 2.5 % (0-4); Lymphocytes # 1.9 K/mcL (0.6-4.6); Lymphocytes % 12.8 %; Mean Corpuscular HGB Conc 30.9 g/dL (31.6-35.5); Mean Corpuscular Hemoglobin 28.1 pg (28.0-33.3); Mean Platelet Volume 10.3 fL (9.4-12.4); Monocytes # 0.8 K/mcL (0.0-1.3); Monocytes % 5.1 %; Neutrophils # 11.8 K/mcL (1.6-8.9); Platelet Count 355 K/mcL (140-400); Red Blood Count 3.34 M/mcL (4.19-5.50); Red Cell Distribution Width 15.1 % (11.5-14.5); Segmented Neutrophils % 79.4 %; White Blood Count 14.8 K/mcL (4.3-11.1)
[2018-12-02] MEDS: Piperacillin/Tazobactam 3.375 GM in 0.9 % Sodium Chloride Mini Bag 100 ML IVPB SCH ×5 (04:13→23:40)
[2018-12-02 04:19] LABS: BUN/Creatinine Ratio 27 (6-26); Blood Urea Nitrogen 28 mg/dL (8-23); Calcium 8.8 mg/dL (8.6-10.3); Carbon Dioxide 29 mEq/L (23-29); Chloride 99 mEq/L (98-107); Glucose 262 mg/dL (70-105); Osmolality,Calculated 297 (280-300); Potassium 4.6 mEq/L (3.5-5.1); Sodium 136 mEq/L (136-145); Vancomycin,Trough 24 mcg/mL (5-10); eGFR For African Americans > 60 (> 60); eGFR For Non-African Americans > 60 (> 60)
[2018-12-02] MEDS: Cholecalciferol (D-3) 1,000 UNIT (25MCG) TABLET PO SCH (08:52)
[2018-12-02] MEDS: Insulin LISPRO 300 UNITS/3 ML VIAL SQ SCH ×6 (08:52→20:31)
[2018-12-02] MEDS: Aspirin 81 MG TAB.CHEW PO SCH (08:53)
[2018-12-02] MEDS: Fenofibrate 54 MG TABLET PO SCH (08:53)
[2018-12-02] MEDS: Metoprolol XL (24 HR) Succ 50 MG TAB.ER.24H PO SCH (08:53)
[2018-12-02] MEDS: Insulin NPH 100 UNIT/ML (x5UNIT) SQ SCH ×3 (08:54→20:32)
[2018-12-02] MEDS ORDERED: predniSONE 20 MG TABLET PO SCH (09:00)
--- NOTE | 2018-12-02 09:29 | Internal Med Progress Note ---
Hospitalist Progress Note - Encounter Date of Encounter: 12/02/18 Time of Encounter: 09:29 - Subjective Interval History: Patient seen and examined this morning. No acute overnight events. Denies any fever or chills nausea vomiting diarrhea. Is alert and oriented 2. Denies any difficulty breathing beyond his baseline. Complaints of left leg pain, currently bearable. - Exam Vitals: Temp Pulse Resp BP Pulse Ox 98.2 F 60 16 138/72 99 12/02/18 06:53 12/02/18 06:53 12/02/18 06:53 12/02/18 06:53 12/02/18 06:53 Exam: General: In no acute distress. Respiratory exam: no accessory muscle use. decreased air entry. minimal rhonchi Cardiovascular exam: RRR, +S1, +S2. no murmur, gallop, rubs. GI/Abdominal exam: Non-tender, Non-distended, normal bowel sounds, soft, no peritoneal signs. Extremities exam: trace pedal edema on Rt, LT BKA with dressing. decreased sensation on Rt toes. Neurological exam: CN II-XII intact, AO X3, no focal deficits except as above Skin exam: rt LE chronic dermatitis - Assessment and Plan (1) HTN (hypertension) Current Visit: Yes Status: Chronic (2) Insulin dependent diabetes mellitus Current Visit: Yes Status: Chronic (3) Peripheral vascular disease due to secondary diabetes Current Visit: Yes Status: Chronic (4) Foot ulcer with necrosis of bone Current Visit: Yes Status: Acute (5) Hyponatremia Current Visit: Yes Status: Acute (6) Code status needs review Current Visit: Yes Status: Chronic (7) Acute respiratory failure with hypoxia Current Visit: Yes Status: Acute - Summary of Assessment and Plan Summary of Assessment and Plan: Assessment Acute Sepsis-resolved Diabetic foot ulcer with ulcer, necrosis and osteomyelitis on both LE acute hypoxic respiratory failure with hypoxia - resolved COPD exacerbation- resolved Pneumonia- RLB Hypoglycemia-resolved Psuedohyponatremia-resolved Uncontrolled diabetes Recent PE. Chronic HTN PAD Diabetes related Neuropathy and nephropathy IDDM COPD HLD CAD Plan - Clinically doing better. c/w empric vancoycin and zosyn. s/p surgery 11/29 on both feet. Significant for abscesses, necrosis and osteomyelitis. Lt foot BKA on 12/01 by Vascular surgery recommendation. Plan for surgery today. f/u surgical cultures, now growing morgenella. anerobic culture pending. Blood culture 11/25 NGTD. Will likely need fpc IV abx. f/u final cultures ID following. may stop vancomycin if okay with ID. - CXR with possible aspiration and/or pulm vascular congestion. c/w empiric antibitoics as above. c/w prednisone taper. c/w scheduled bronchodilators. Likely related to COPD exacerbation. Now improved. - Uncontrolled DM with A1c of 10.9. lantus held given hypoglycemia. increase to 25 BID give BG elevated with steroid. c/w accuchecks. - BP stable. Hold home antihypertensive except metoprolol. Will resume if BP increased. - resume heparin drip held for surgery. Will resume eliquis if Hb remains stable. - Hold diazepam and gabapentin. Internal Medicine: Result - Labs CBC & Chem 7: 12/02/18 03:30 12/02/18 03:30 Labs: Short CBC 12/02/18 Range/Units 03:30 WBC 14.8 H (4.3-11.1) K/mcL Hgb 9.4 L (12.9-16.9) g/dL Hct 30.4 L (37.5-50.1) % Plt Count 355 (140-400) K/mcL Neutrophils # 11.8 H (1.6-8.9) K/mcL BMP 12/02/18 03:30 Sodium 136 Potassium 4.6 Chloride 99 Carbon Dioxide 29 BUN 28 H Creatinine 1.03 Glucose 262 H Calcium 8.8 - ABG Interpretation ABG results: ABG ABG pH 7.40 pH Units (7.32-7.45) 11/27/18 05:47 ABG pCO2 41 mmHg (35-45) 11/27/18 05:47 ABG pO2 73 mmHg (85-104) L 11/27/18 05:47 ABG O2 Saturation 94 % (95-98) L 11/27/18 05:47 PT/INR, D-dimer PT 11.0 Seconds (9.4-12.1) 11/28/18 13:10 Consult Discharge Plan - Plan Referrals: David Jerez [Primary Care Provider] - Denny Armenta MD [Partnered Physician] - 01/10/19 2:20 pm Sherin Julien [employer] DEVELOPER [Advanced Practice Nurse] - 12/29/18 2:20 pm (1) HTN (hypertension) Qualifiers: Hypertension type: essential hypertension Qualified Code(s): I10 - Essential (primary) hypertension (4) Foot ulcer with necrosis of bone Qualifiers: Laterality: unspecified laterality Qualified Code(s): L97.504 - Non-pressure chronic ulcer of other part of unspecified foot with necrosis of bone
[2018-12-02] MEDS: Budesonide/Formoterol 160/4.5 1 PUFF INH IH SCH ×2 (10:10→22:07)
--- NOTE | 2018-12-02 10:24 | Infectious Disease Progress No ---
ID Progress Note Date of Encounter: 12/02/18 Time of Encounter: 10:22 - Subjective Subjective: Patient seen and examined. No acute events noted overnight. Patient complains of an aching pain in the left lower extremity. Denies fevers, chills, rigors. Denies chest pain. States shortness of breath and cough are at baseline and are intermittent. Denies nausea, vomiting, diarrhea, or constipation. Denies abdominal pain or urinary complaints. Denies oral thrush or skin rashes. - Objective CBC & Chem 7: 12/05/18 03:45 12/05/18 03:45 - Exam Vitals: Temp Pulse Resp BP Pulse Ox 98.2 F 60 16 138/72 99 12/02/18 06:53 12/02/18 06:53 12/02/18 10:14 12/02/18 06:53 12/02/18 10:14 Exam: Head: Atraumatic, normal inspection, normocephalic. Eye: EOMI, PERRLA, no scleral icterus noted. ENT: Mucous membranes moist. No odontogenic infection noted. Neck: Normal inspection, no meningismus. Respiratory: Clear to auscultation. No rales, respiratory distress, rhonchi, or wheezes noted. Cardiovascular: Regular rate and rhythm, S1 and S2 audible. No murmurs, rubs, or gallops. GI: Soft, nondistended, normal bowel sounds. Extremities:No joint swelling or tenderness noted. LLE BKA site with dressing C/D/I. Right foot wound VAC dressing C/D/I. Neurological: Alert, oriented 3, no focal deficits. Psychiatric: normal affect, normal mood. Skin: Dry, intact, warm. Normal color. No rashes. - Assessment and Plan (1) Sepsis Current Visit: Yes Status: Acute The patient had 3 sepsis criteria. Likely secondary to bilateral foot infection. Improved. White blood cell count up a little bit from yesterday, but likely reactive from recent surgery. Tachycardia resolved. He has been afebrile. Blood cultures drawn 11/25/18 are negative 2 sets. Qualifiers: Qualified Code(s): A41.9 - Sepsis, unspecified organism SNOMED Code(s): 32689208 (2) Osteomyelitis Current Visit: Yes Status: Acute Location: Bilateral feet. Causative organism: M. morgannii and GBS and MRSA (per PBP2 testing). Etiology: Likely multifactorial. Uncontrolled diabetes, tobacco use, diabetic foot ulcers. X-ray of the left foot showed findings concerning for osteomyelitis of the calcaneus. Right foot x-ray showed no acute osseous abnormality. ESR 101, CRP greater than 300. Bilateral lower extremity ABIs were normal. TCP O2 monitoring consistent with healing bilaterally. Podiatry consulted. Status post I&D of the left and right foot 11/29/[address] Clay. Operative note reviewed. Purulent noted beneath the fascia and near the bone. Intraoperative cultures are positive for MRSA, GBS and M. morgannii (left) and M. morgannii, GBS, and MRSA (right). Per podiatry, left foot was unsalvageable. Status post BKA 12/01/18. Currently on vancomycin and Zosyn. Qualifiers: Qualified Code(s): M86.079 - Acute hematogenous osteomyelitis, unspecified ankle and foot SNOMED Code(s): 14354197 (3) Diabetic foot ulcer Current Visit: No Status: Acute Location: Bilateral heels. Status post left BKA. Podiatry consulted and following. Qualifiers: Qualified Code(s): E10.621 - Type 1 diabetes mellitus with foot ulcer; L97.429 - Non-pressure chronic ulcer of left heel and midfoot with unspecified severity SNOMED Code(s): 762295233 (4) HTN (hypertension) Current Visit: Yes Status: Chronic Qualifiers: Qualified Code(s): I10 - Essential (primary) hypertension SNOMED Code(s): 44324598 (5) Acute respiratory failure with hypoxia Current Visit: Yes Status: Acute Acute on chronic. CXR concerning for atelectasis vs. PNA. vs. aspiration. Repeat CXR showed resolution of left basilar airspace disease and no change in the right base airspace disease. Low index of suspicion for PNA based on clinical picture. Appears back to baseline. SNOMED Code(s): 29560518, 435507143 (6) Insulin dependent diabetes mellitus Current Visit: Yes Status: Chronic Recommend aggressive glucose monitoring and control to promote wound healing and prevent re-infection. Management per the primary team. SNOMED Code(s): 62228871 (7) Peripheral vascular disease due to secondary diabetes Current Visit: Yes Status: Chronic Bilateral AGUILAR studies normal. TCPO2 monitoring consistent with healing bilaterally. SNOMED Code(s): 224185104, 224970832 - Recommendations Recommendations: Await intraoperative cultures and pathology. Await blood cultures to finalize. Wound care and activity per the podiatry team. BKA management per the vascular team. Continue Vancomycin IV. Pharmacy to dose. Goal trough ~15. Continue Zosyn 3.375 g IV every 8 hours. Monitor renal function and for drug toxicity and is just antibiotics. Duration of treatment depends on the clinical picture, but likely 6 weeks. Will plan Zosyn to transition to IV Ertapenem when ready for discharge for ease of dosing. Will avoid the use of caphalosporins due to high risk for development of ampC gene resistance mechanism with this bacteria. Will need to receive a dose of IV Ertapenem prior to discharge. ancillary services manager therapy to assist with discharge planning. Consult VAT prior to discharge. Will need weekly CBC, BUN/Cr, ESR, CRP, Vanc trough. Will need weekly IV care per protocol. Follow up with ID 12/29/18 at 1420 Consult Discharge Plan - Plan Referrals: David Jerez [Primary Care Provider] - eDnny Armenta MD [Partnered Physician] - 01/10/19 2:20 pm Sherin Julien CNP [Advanced Practice Nurse] - 12/29/18 2:20 pm - Attending Attestation I have personally performed a face to face evaluation on this patient. I have reviewed and agree with the care plan. History and Exam by me shows: Assessment and Plan: 1.Sepsis 2.Osteomyelitis bilateral feet; causative organims pending. going for amputation of R BKA 3.Diabetic foot ulcer 4.HTN 5.Acute Respiratory failure with hypoxia 6.DM II insulint dependent Recommendations: continue vancomycin and zosyn for now will tailor antibiotics once cultures finalize duration of treatment at least 6 weeks.
--- NOTE | 2018-12-02 11:10 | Podiatry Progress Note ---
Date of Encounter: 12/02/18 Time of Encounter: 11:05 - Assessment and Plan (1) Diabetic foot ulcer Current Visit: No Status: Acute Assessment: S/P Incision and drainage of multiple planes left foot and Incision and drainage of multiple planes right foot with application of PuraPly antimicrobial wound graft with Dr. Clay on 11/29/18 S/P BKA of left lower extremity with Dr. Armenta 12/01/[address] to right foot Faint pulses RLE Dependent rubor RLE WBC 14.8, ESR 101, CRP >300, afebrile XR of right foot negative for any osseous abnormality XR of left foot concerning for subcutaneous gas and oseteomyelitis Anaerobic cultures and blood cultures pending Surgical cultures returned gram negative rods, right, and gram negative rods and group b strep left ABIs normal bloodflow TCPO2 right ankle 58 right foot 37, left ankle 24, left foot 23 Plan: VAC placed, MWF dressing changes Puraply graft in place Dressing completed, see below Limited weight bearing, forefoot only, do not place weight to heel Social service consult for ECF/rehab placement Follow up in wound care center with Dr. Clay 1 week s/p discharge, please make appointment prior to d/c. Right foot prepped skin with skin prep.. Painted all maceration with betadine. Covered all maceration with 4x4 dry gauze. Placed tegaderm drape in window pane fashion. Placed adaptic over purpaply graft. Placed black granulafoam to wound bed. Covered with tegaderm drape. Placed to suction at -125 mmHG. Good seal noted. Secured with drain sponge, kerlix, and SHANIA wrap. Impression: XR/XR foot 3V LT IMPRESSION: Ulceration seen along the plantar aspect of the heel. Questionable osteolysis involving the subjacent calcaneus, raising the possibility of osteomyelitis. D/ / Fco Sethi MD / Fco Sethi MD Interpreting Provider: Fco Sethi MD R #: [id number] XR/XR foot 3V RT IMPRESSION: No bony abnormality D/ / Armen Li MD / Armen Li MD Interpreting Provider: Armen Li MD Qualifiers: Diabetic foot ulcer location: heel Diabetes mellitus type: type 1 Lat erality: left Non-pressure ulcer stage: unspecified non-pressure ulcer stage Qualified Code(s): E10.621 - Type 1 diabetes mellitus with foot ulcer; L97.429 - Non-pressure chronic ulcer of left heel and midfoot with unspecified severity Subjective Principal diagnosis: Necrotic ulcers both heels Interval history: Patient alert and oriented. Denies fevers, chills, nausea, vomiting, or diarrhea. Denies calf pain, chest pain, or shortness of breath. Denies any pain to right foot. Reports pain to left lower extremity. No other questions or concerns at this time. Objective - Vital Signs Vital Signs: Vital Signs Temp Pulse Resp BP Pulse Ox 12/02/18 10:14 16 99 12/02/18 06:53 98.2 F 60 16 138/72 99 12/02/18 03:07 16 96 12/02/18 02:47 97.6 F 62 15 153/88 99 12/01/18 23:47 96.8 F L 62 16 160/86 100 12/01/18 22:03 16 100 12/01/18 21:45 96.6 F L 61 20 155/79 100 12/01/18 20:45 97.4 F L 59 20 160/89 100 12/01/18 20:15 97.3 F L 60 16 171/80 94 12/01/18 19:45 94.8 F L 63 20 171/85 92 12/01/18 19:31 97.6 F 60 18 155/70 96 12/01/18 19:21 60 18 144/87 97 12/01/18 19:11 97.6 F 61 20 156/81 98 12/01/18 19:01 65 20 171/90 98 12/01/18 18:51 75 20 174/82 100 12/01/18 18:41 97.5 F L 61 22 166/87 98 12/01/18 11:22 98.3 F 62 17 168/85 97 Intake and Output 12/01/18 12/02/18 12/02/18 23:59 07:59 15:59 Intake Total 0 / 683.3 350 / 450 100 / 450 Output Total 200 / 750 300 / 300 Balance -200 / -66.7 50 / 150 100 / 150 Intake: IV Fluids 0 / 683.3 350 / 450 100 / 450 Heparin 25,000 UNIT/250 ML D5W 100 / 100 25,000 unit In 250 ml @ 14 UNIT /KG/HR 14.602 mls/hr IVC . Q17H8M DIEGO Rx#:[id number] Ancef 2,000 MG In Water for inj 0 / 0 . (sterile) 20 ML @ 200 mls/hr IVP PREOP STA Rx#:[id number] Zosyn 3.375 GM In 0.9 % Sodium 100 / 100 Chloride (Mini-Bag +) 100 ML @ 25 mls/hr IVPB Q8HR DIEGO Rx#: [id number] Vancocin 1,000 MG In 0.9 % 250 / 250 Sodium Chloride 250 ML @ 167 mls/hr IVPB Q12H DIEGO Rx#: [id number] Output: Estimated Blood Loss 200 / 200 Catheter 300 / 300 Other: Blood Glucose* 235 252 - Exam Exam: Constitiutional: Alert and oriented. No acute distress noted Vascular: Faint DP/PT RLE, CFT <3 sec to all digits, warm to cool from tibia to toes RLE, no calf pain with squeeze RLE, L BKA Neurologic: No sensation to touch Dermatologic: L BKA site with dressing in place, right plantar foot wound with puraply graft in tact, maceration noted to surrounding tissue, surrounding tissue erythematous, dependent rubor noted bilaterally Musculoskeletal: 2/5 muscle strength and normal tone bilaterally. - Lab Result Diagrams: 12/02/18 03:30 12/02/18 03:30 Labs: Abnormal lab results WBC 14.8 K/mcL (4.3-11.1) H 12/02/18 03:30 RBC 3.34 M/mcL (4.19-5.50) L 12/02/18 03:30 Hgb 9.4 g/dL (12.9-16.9) L 12/02/18 03:30 Hct 30.4 % (37.5-50.1) L 12/02/18 03:30 MCHC 30.9 g/dL (31.6-35.5) L 12/02/18 03:30 RDW 15.1 % (11.5-14.5) H 12/02/18 03:30 Neutrophils # 11.8 K/mcL (1.6-8.9) H 12/02/18 03:30 ESR 101 mm/hr (0-10) H 11/25/18 21:51 PT 14.3 Seconds (9.4-12.1) H 11/26/18 01:57 Heparin Anti-Xa, Unfract 0.29 IU/mL (0.30-0.70) L 12/02/18 03:30 ABG pO2 73 mmHg (85-104) L 11/27/18 05:47 ABG Total CO2 27 mEq/L (20-26) H 11/27/18 05:47 ABG O2 Saturation 94 % (95-98) L 11/27/18 05:47 Sodium 133 mEq/L (136-145) L 11/28/18 04:34 Potassium 3.4 mEq/L (3.5-5.1) L 11/29/18 19:30 Chloride 96 mEq/L (98-107) L 11/26/18 01:57 Carbon Dioxide 32 mEq/L (23-29) H 11/30/18 04:25 BUN 28 mg/dL (8-23) H 12/02/18 03:30 BUN/Creatinine Ratio 27 (6-26) H 12/02/18 03:30 Glucose 262 mg/dL (70-105) H 12/02/18 03:30 POC Glucose 252 mg/dL (70-99) H 12/02/18 06:54 Hemoglobin A1c 10.9 % (-5.6) H 11/26/18 01:57 Calculated Osmolality 301 (280-300) H 11/29/18 03:48 Calcium 8.5 mg/dL (8.6-10.3) L 11/30/18 04:25 C-Reactive Protein > 300 mg/L (Less than 10) H 11/25/18 21:51 Serum Total Protein 6.3 g/dL (6.4-8.9) L 11/26/18 01:57 Albumin 2.4 g/dL (3.5-5.7) L 11/26/18 01:57 Globulin 3.9 g/dL (2.4-3.5) H 11/26/18 01:57 Albumin/Globulin Ratio 0.6 (1.1-2.2) L 11/26/18 01:57 HDL Cholesterol 33 mg/dL (40-59) L 11/26/18 01:57 Urine Clarity Cloudy (Clear) A 11/26/18 06:11 Ur Specific Heath > 1.030 (1.010-1.025) H 11/26/18 06:11 Urine Protein >=300 mg/dL (Neg-Trace) H 11/26/18 06:11 Urine Glucose (UA) >=1000 mg/dL (Normal) H 11/26/18 06:11 Urine Blood Small (Negative) H 11/26/18 06:11 Urine Bilirubin Small (Negative) H 11/26/18 06:11 Urine Microscopic RBC 5-15 per hpf (0-3) H 11/26/18 06:11 Urine Microscopic WBC 5-15 per hpf (0-3) H 11/26/18 06:11 Ur Squamous Epith Cells Many per lpf (None-Few) H 11/26/18 06:11 Vancomycin Trough 24 mcg/mL (5-10) H 12/02/18 03:30 Microbiology, Last 48 Hours 11/29/18 18:56 Wound Culture - Preliminary Left Foot Morganella lico.ssp morganii Strep agalactiae - (Group B) 11/29/18 18:56 Wound Culture - Preliminary Right Foot Morganella lico.ssp morganii 11/29/18 18:56 Surgical Biopsy Culture - Preliminary Left Foot Morganella lico.ssp morganii 11/29/18 18:56 Surgical Biopsy Culture - Preliminary Right Foot Gram Negative George 11/25/18 21:51 Blood Culture - Final Peripheral Venipuncture No growth. Final report. 11/25/18 21:51 Blood Culture - Final Peripheral Venipuncture No growth. Final report. Consult Discharge Plan - Plan Referrals: David Jerez [Primary Care Provider] - Denny Armenta MD [Partnered Physician] - 01/10/19 2:20 pm Sherin Julien CNP [Advanced Practice Nurse] - 12/29/18 2:20 pm
[2018-12-02] MEDS ORDERED: traMADol 50 MG TABLET PO PRN (12:33)
[2018-12-02] MEDS ORDERED: Vancomycin 1,750 MG in 0.9 % Sodium Chloride 250 ML IVPB SCH (14:00)
[2018-12-02] MEDS: Heparin 25,000 UNIT/250 ML D5W 25,000 UNIT/250 ML IV.SOLN IVC SCH (14:53)
[2018-12-02] MEDS: *HR* FentaNYL (PF) 100 MCG/2 ML VIAL IVP PRN (15:31)
[2018-12-02] MEDS ORDERED: Ketorolac 15 MG/ML VIAL IVP SCH (17:00)
--- NOTE | 2018-12-02 17:02 | Vascular/[facility] Progress Note ---
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 His ba ndages dry. He reports inadequate pain relief. His pain medication will be adjusted to provide adequate relief. His bandages will be left in place until 12/05/2018. Recommend continue with physical therapy and occupational therapy. loan services professional has been counseled for discharge planning. His wound appears to be healing well, he will likely be ready for discharge from a vascular surgery perspective on 12/05/2018. Antibiotic therapy per recommendations of infectious disease. Qualifiers: Peripheral atherosclerosis artery type: pauma artery Qualified Code(s): I70.244 - Atherosclerosis of pauma arteries of left leg with ulceration of heel and midfoot (2) HTN (hypertension) Current Visit: Yes Status: Chronic Qualifiers: Hypertension type: essential hypertension Qualified Code(s): I10 - Essent ial (primary) hypertension (3) Osteomyelitis Current Visit: Yes Status: Acute Qualifiers: Osteomyelitis type: acute hematogenous Osteomyelitis location: foot Laterality: unspecified laterality Qualified Code(s): M86.079 - Acute hematogenous osteomyelitis, unspecified ankle and foot (4) Chronic disease anemia Current Visit: Yes Status: Chronic The patient has chronic disease anemia with acute expected postoperative blood loss anemia. He is hemodynamically stable without evidence of ongoing blood loss. - Subjective Interval history: The patient reports incisional pain. He denies any fevers or chills. He denies any chest pain or shortness of breath. Vital Signs, Last 4 Hours Temp Pulse Resp BP Pulse Ox 12/02/18 15:07 16 93 12/02/18 14:58 98.0 F 64 16 162/79 93 - Physical Examination General: Present: Conversant, No Apparent Distress HEENT: Present: Pupils equal Cardiac: Present: Normal S1 and S2 Lungs: Present: Normal Breath Sounds Neuro: Present: Alert and responsive, No focal deficits noted Vascular: Present: Surgical incisions (bandage dry) Abdomen: Present: Soft Results 12/02/18 03:30 12/02/18 03:30 Lab Results, Last 24 hours 12/02/18 12/02/18 03:30 03:30 WBC 14.8 H Hgb 9.4 L Hct 30.4 L Plt Count 355 Sodium 136 Potassium 4.6 Chloride 99 Carbon Dioxide 29 BUN 28 H Creatinine 1.03 Glucose 262 H Calcium 8.8 Consult Discharge Plan - Plan Referrals: David Jerez [Primary Care Provider] - Denny Armenta MD [Partnered Physician] - 01/10/19 2:20 pm Sherin Julien CNP [Advanced Practice Nurse] - 12/29/18 2:20 pm
[2018-12-02] MEDS ORDERED: *HR* OxyCODONE/APAP 5/325 TABLET PO PRN (17:10)
[2018-12-02] MEDS ORDERED: Ketorolac 15 MG/ML VIAL IVP ONE (17:10)
[2018-12-02] MEDS: *HR* OxyCODONE/APAP 10/325 TABLET PO PRN (20:30)
[2018-12-03] MEDS: Ipratropium/Albuterol Neb 3 ML IH SCH ×4 (03:42→22:26)
[2018-12-03] MEDS: Insulin NPH 100 UNIT/ML (x5UNIT) SQ SCH ×3 (09:09→22:08)
[2018-12-03] MEDS: Heparin 25,000 UNIT/250 ML D5W 25,000 UNIT/250 ML IV.SOLN IVC SCH (09:40)
[2018-12-03] MEDS: Piperacillin/Tazobactam 3.375 GM in 0.9 % Sodium Chloride Mini Bag 100 ML IVPB SCH ×3 (09:41→23:57)
[2018-12-03] MEDS: predniSONE 20 MG TABLET PO SCH (09:42)
[2018-12-03] MEDS: Aspirin 81 MG TAB.CHEW PO SCH (09:43)
[2018-12-03] MEDS: Metoprolol XL (24 HR) Succ 50 MG TAB.ER.24H PO SCH (09:43)
[2018-12-03] MEDS: Apixaban 5 MG TABLET PO SCH ×2 (09:43→22:02)
[2018-12-03] MEDS: Insulin LISPRO 300 UNITS/3 ML VIAL SQ SCH ×4 (09:43→22:03)
[2018-12-03] MEDS: Fenofibrate 54 MG TABLET PO SCH (09:43)
[2018-12-03] MEDS: Cholecalciferol (D-3) 1,000 UNIT (25MCG) TABLET PO SCH (09:43)
--- NOTE | 2018-12-03 10:29 | Internal Med Progress Note ---
Hospitalist Progress Note - Encounter Date of Encounter: 12/03/18 Time of Encounter: 10:29 - Subjective Interval History: Patient seen and examined this morning at bedside. No acute overnight events. Afebrile and hemodynamically stable. Complains of some shortness of breath and constipation. Denies any chest pain. Has Hagen in place. - Exam Vitals: Temp Pulse Resp BP Pulse Ox 97.7 F 70 17 174/82 98 12/03/18 06:27 12/03/18 06:12/03/18 06:12/03/18 06:12/03/18 06:27 Exam: General: In no acute distress. Respiratory exam: no accessory muscle use. decreased air entry. Cardiovascular exam: RRR, +S1, +S2. no murmur, gallop, rubs. GI/Abdominal exam: Non-tender, Non-distended, normal bowel sounds, soft, no peritoneal signs. Has hagen inn place Extremities exam: trace pedal edema on Rt, LT BKA with dressing. Rt toes with better color. Neurological exam: CN II-XII intact, AO X3, no focal deficits except as above Skin exam: rt LE chronic dermatitis - Assessment and Plan (1) HTN (hypertension) Current Visit: Yes Status: Chronic (2) Insulin dependent diabetes mellitus Current Visit: Yes Status: Chronic (3) Peripheral vascular disease due to secondary diabetes Current Visit: Yes Status: Chronic (4) Foot ulcer with necrosis of bone Current Visit: Yes Status: Acute (5) Hyponatremia Current Visit: Yes Status: Acute (6) Code status needs review Current Visit: Yes Status: Chronic (7) Acute respiratory failure with hypoxia Current Visit: Yes Status: Acute - Summary of Assessment and Plan Summary of Assessment and Plan: Assessment Acute Sepsis-resolved Diabetic foot ulcer with ulcer, necrosis and osteomyelitis on both LE acute hypoxic respiratory failure with hypoxia - resolved COPD exacerbation- resolved Pneumonia- RLB, unclear organism Hypoglycemia-resolved Psuedohyponatremia-resolved Uncontrolled diabetes Recent PE. Chronic HTN PAD Diabetes related Neuropathy and nephropathy IDDM COPD HLD CAD Plan - Clinically doing better. c/w empric vancoycin and zosyn. s/p surgery 11/29 on both feet. Significant for abscesses, necrosis and osteomyelitis. Lt foot BKA on 12/01 by Vascular surgery recommendation. f/u surgical cultures, now growing morgenella, strep agalactiae and MRSA. f/u final report anerobic culture pending. Blood culture 11/25 NGTD. Will need joint terminal attack controller IV abx. f/u final cultures ID following. - CXR with possible aspiration and/or pulm vascular congestion. c/w empiric antibitoics as above. c/w prednisone taper. c/w scheduled bronchodilators. Likely related to COPD exacerbation. Now improved. - Uncontrolled DM with A1c of 10.9. increase to 35 BID give BG elevated with steroid. c/w accuchecks and SSI. - BP elevated. Restart home losartan. c/w metoprolol and prn Hyralazine IV for sbp>180 - start home eliquis. - Hold diazepam and gabapentin. Internal Medicine: Result - Labs CBC & Chem 7: 12/02/18 03:30 12/02/18 03:30 - ABG Interpretation ABG results: ABG ABG pH 7.40 pH Units (7.32-7.45) 11/27/18 05:47 ABG pCO2 41 mmHg (35-45) 11/27/18 05:47 ABG pO2 73 mmHg (85-104) L 11/27/18 05:47 ABG O2 Saturation 94 % (95-98) L 11/27/18 05:47 PT/INR, D-dimer PT 11.0 Seconds (9.4-12.1) 11/28/18 13:10 Consult Discharge Plan - Plan Referrals: David Jerez [Primary Care Provider] - Denny Armenta MD [Partnered Physician] - 01/10/19 2:20 pm Sherin Julien CNP [Advanced Practice Nurse] - 12/29/18 2:20 pm (1) HTN (hypertension) Qualifiers: Hypertension type: essential hypertension Qualified Code(s): I10 - Essential (primary) hypertension (4) Foot ulcer with necrosis of bone Qualifiers: Laterality: unspecified laterality Qualified Code(s): L97.504 - Non-pressure chronic ulcer of other part of unspecified foot with necrosis of bone
[2018-12-03] MEDS: Budesonide/Formoterol 160/4.5 1 PUFF INH IH SCH ×2 (10:36→22:26)
[2018-12-03] MEDS: *HR* OxyCODONE/APAP 10/325 TABLET PO PRN ×2 (11:53→19:51)
[2018-12-03] MEDS: hydrALAZINE 10 MG TABLET PO PRN (12:08)
[2018-12-03] MEDS: Valsartan 160 MG TABLET PO SCH (12:48)
[2018-12-03] MEDS: *HR* FentaNYL (PF) 100 MCG/2 ML VIAL IVP PRN (14:02)
[2018-12-03 21:24] LABS: Basophils # 0.1 K/mcL (0.0-0.2); Basophils % 0.4 %; Eosinophils # 0.1 K/mcL (0.0-0.6); Eosinophils % 0.5 %; Hematocrit 28.7 % (37.5-50.1); Hemoglobin 8.7 g/dL (12.9-16.9); Immature Granulocytes % 8.7 % (0-4); Lymphocytes # 1.7 K/mcL (0.6-4.6); Lymphocytes % 10.3 %; Mean Corpuscular HGB Conc 30.3 g/dL (31.6-35.5); Mean Corpuscular Hemoglobin 28.3 pg (28.0-33.3); Mean Corpuscular Volume 93.5 fL (83.0-100.0); Mean Platelet Volume 10.1 fL (9.4-12.4); Monocytes # 0.8 K/mcL (0.0-1.3); Monocytes % 5.1 %; Neutrophils # 12.3 K/mcL (1.6-8.9); Nucleated Red Blood Cells 0.8 /100 WBC (0); Platelet Count 393 K/mcL (140-400); Red Blood Count 3.07 M/mcL (4.19-5.50); Red Cell Distribution Width 15.8 % (11.5-14.5); White Blood Count 16.4 K/mcL (4.3-11.1)
[2018-12-03 21:42] LABS: Large Platelets Present (Not Present); Platelet Estimate Normal (Normal); Reactive Lymphocytes Present (Not Present)
[2018-12-03 21:44] LABS: BUN/Creatinine Ratio 32 (6-26); Blood Urea Nitrogen 40 mg/dL (8-23); Calcium 9.2 mg/dL (8.6-10.3); Carbon Dioxide 30 mEq/L (23-29); Chloride 101 mEq/L (98-107); Glucose 202 mg/dL (70-105); Osmolality,Calculated 296 (280-300); Potassium 5.3 mEq/L (3.5-5.1); Sodium 135 mEq/L (136-145); eGFR For African Americans > 60 (> 60); eGFR For Non-African Americans 56 (> 60)
[2018-12-03] MEDS ORDERED: Insulin Human Regular 10 UNIT in 0.9 % Sodium Chloride 10 ML IV ONE (23:00)
[2018-12-03] MEDS ORDERED: *HR* Dextrose 50 % in Water (Syg) 50 ML SYRINGE IVP ONE (23:02)
[2018-12-04] MEDS: Nicotine 7 MG PATCH.TD24 TD SCH ×2 (01:18→08:07)
[2018-12-04 02:04] LABS: Hemoglobin 8.6 g/dL (12.9-16.9); Mean Corpuscular HGB Conc 30.7 g/dL (31.6-35.5); Mean Corpuscular Hemoglobin 28.9 pg (28.0-33.3); Mean Platelet Volume 9.9 fL (9.4-12.4); Nucleated Red Blood Cells 1.3 /100 WBC (0); Platelet Count 370 K/mcL (140-400); Red Blood Count 2.98 M/mcL (4.19-5.50); Red Cell Distribution Width 15.8 % (11.5-14.5); White Blood Count 18.4 K/mcL (4.3-11.1)
[2018-12-04 02:21] LABS: Lymphocytes # 2.9 K/mcL (0.6-4.6); Monocytes # 0.4 K/mcL (0.0-1.3); Neutrophils # 15.1 K/mcL (1.6-8.9); Platelet Estimate Normal (Normal)
[2018-12-04 02:22] LABS: Hypochromasia Present (Not Present); Polychromasia 1+ (Not Present)
[2018-12-04 02:23] LABS: BUN/Creatinine Ratio 32 (6-26); Blood Urea Nitrogen 39 mg/dL (8-23); Calcium 9.5 mg/dL (8.6-10.3); Carbon Dioxide 33 mEq/L (23-29); Chloride 101 mEq/L (98-107); Glucose 142 mg/dL (70-105); Osmolality,Calculated 298 (280-300); Potassium 5.5 mEq/L (3.5-5.1); Sodium 138 mEq/L (136-145); eGFR For African Americans > 60 (> 60); eGFR For Non-African Americans 57 (> 60)
[2018-12-04] MEDS: Ipratropium/Albuterol Neb 3 ML IH SCH ×3 (03:54→22:26)
[2018-12-04] MEDS: Piperacillin/Tazobactam 3.375 GM in 0.9 % Sodium Chloride Mini Bag 100 ML IVPB SCH ×3 (08:05→23:39)
[2018-12-04] MEDS: Valsartan 160 MG TABLET PO SCH (08:06)
[2018-12-04] MEDS: Metoprolol XL (24 HR) Succ 50 MG TAB.ER.24H PO SCH (08:06)
[2018-12-04] MEDS: Cholecalciferol (D-3) 1,000 UNIT (25MCG) TABLET PO SCH (08:06)
[2018-12-04] MEDS: Aspirin 81 MG TAB.CHEW PO SCH (08:06)
[2018-12-04] MEDS: Fenofibrate 54 MG TABLET PO SCH (08:06)
[2018-12-04] MEDS: Apixaban 5 MG TABLET PO SCH ×2 (08:06→21:11)
[2018-12-04] MEDS: predniSONE 20 MG TABLET PO SCH (08:07)
[2018-12-04] MEDS: *HR* OxyCODONE/APAP 10/325 TABLET PO PRN ×3 (08:07→21:10)
[2018-12-04] MEDS: Insulin LISPRO 300 UNITS/3 ML VIAL SQ SCH ×4 (08:08→21:11)
[2018-12-04] MEDS ORDERED: Furosemide 20 MG/2 ML VIAL IVP ONE (08:51)
--- NOTE | 2018-12-04 09:35 | Internal Med Progress Note ---
Hospitalist Progress Note - Encounter Date of Encounter: 12/04/18 Time of Encounter: 07:35 - Subjective Interval History: Patient seen and examined this morning at bedside. denies any difficulty breathing or chest pain. feeling better. Afebrile and hemodynamically stable. Denies any new complaint. Reported by nurse that he might be retaining urine after Hagen was removed. Has NSVT overnight with hyperkalemia. Was asymptomatic at the time. Was given insulin for hyperkalemia. - Exam Vitals: Temp Pulse Resp BP Pulse Ox 97.7 F 60 17 174/79 99 12/04/18 06:41 12/04/18 06:41 12/04/18 06:41 12/04/18 06:41 12/04/18 06:41 Exam: General: In no acute distress. Respiratory exam: no accessory muscle use. decreased air entry. minimal crackles at base Cardiovascular exam: RRR, +S1, +S2. no murmur, gallop, rubs. GI/Abdominal exam: Non-tender, Non-distended, normal bowel sounds, soft, no peritoneal signs. Extremities exam: 1+ pedal edema on Rt LE, LT BKA with dressing. Rt toes with better color, has wound vac and boots. LUE with pitting edema.. Neurological exam: CN II-XII intact, AO X3, no focal deficits Skin exam: rt LE chronic dermatitis - Assessment and Plan (1) HTN (hypertension) Current Visit: Yes Status: Chronic (2) Insulin dependent diabetes mellitus Current Visit: Yes Status: Chronic (3) Peripheral vascular disease due to secondary diabetes Current Visit: Yes Status: Chronic (4) Foot ulcer with necrosis of bone Current Visit: Yes Status: Acute (5) Hyponatremia Current Visit: Yes Status: Acute (6) Code status needs review Current Visit: Yes Status: Chronic (7) Acute respiratory failure with hypoxia Current Visit: Yes Status: Acute - Summary of Assessment and Plan Summary of Assessment and Plan: Assessment Acute Sepsis-resolved Diabetic foot ulcer with ulcer, necrosis and osteomyelitis on both LE acute hypoxic respiratory failure with hypoxia - resolved COPD exacerbation- resolved Pneumonia- RLB, unclear organism Hypoglycemia-resolved Psuedohyponatremia-resolved Uncontrolled diabetes Recent PE Goals of care discussion. NSVT hyperkalemia Chronic HTN chronic systolic heart failure PAD Diabetes related Neuropathy and nephropathy IDDM COPD HLD CAD Plan - Clinically doing better. c/w empric vancoycin and zosyn. s/p surgery 11/29 on both feet. Significant for abscesses, necrosis and osteomyelitis. Lt foot BKA on 12/01 by Vascular surgery recommendation. f/u final surgical culture sensitivity. wound and surgical culture growing morgenella, strep agalactiae and MRSA. f/u final report anerobic culture pending. wound MRSA sensitive to Bactrim doxy and linezoid. Blood culture 11/25 NGTD. leukocytosis likely related to steroids. Will need fpc IV abx. ID following. - CXR with possible aspiration and/or pulm vascular congestion. c/w empiric antibitoics as above. c/w prednisone taper. c/w scheduled bronchodilators. L ikely related to COPD exacerbation. Now improved. - Uncontrolled DM with A1c of 10.9. c/w NPH insulin 35 BID and accuchecks and SSI. Now BG better controlled - BP elevated. Home valsartan was started but slightly worsening GFR. Will hold for now. c/w metoprolol and prn Hyralazine IV for sbp>180. Also with some component of urine retention after hagen removed. Will monitor with bladder scan and consider hagen if retaining. Hold any further fluid given pitting edema. Will give small dose of lasix. repeat BMP in afternoon. - start home eliquis for recent PE. - Hold diazepam and gabapentin. - Has NSVT overnight. c/w metoprolol. Repeat Potassium now stable. f/u BMP later. - Has severe cardiomyopathy with EF 30-35%. Is current DNRCCA on chart based on previous discussion. He tell me he wants to be full code. Will change order for now. Will get palliative care to further help clarify and guide goals of care. Internal Medicine: Result - Labs CBC & Chem 7: 12/04/18 01:50 12/04/18 07:05 Labs: Short CBC 12/03/18 12/04/18 Range/Units 20:43 01:50 WBC 16.4 H 18.4 H (4.3-11.1) K/mcL Hgb 8.7 L 8.6 L (12.9-16.9) g/dL Hct 28.7 L 28.0 L (37.5-50.1) % Plt Count 393 370 (140-400) K/mcL Neutrophils # 12.3 H 15.1 H (1.6-8.9) K/mcL BMP 12/03/18 12/04/18 12/04/18 20:43 01:50 07:05 Sodium 135 L 138 Potassium 5.3 H 5.5 H 5.1 Chloride 101 101 Carbon Dioxide 30 H 33 H BUN 40 H 39 H Creatinine 1.25 1.23 Glucose 202 H 142 H Calcium 9.2 9.5 - ABG Interpretation ABG results: ABG ABG pH 7.40 pH Units (7.32-7.45) 11/27/18 05:47 ABG pCO2 41 mmHg (35-45) 11/27/18 05:47 ABG pO2 73 mmHg (85-104) L 11/27/18 05:47 ABG O2 Saturation 94 % (95-98) L 11/27/18 05:47 PT/INR, D-dimer PT 11.0 Seconds (9.4-12.1) 11/28/18 13:10 Consult Discharge Plan - Plan Referrals: David Jerez [Primary Care Provider] - Denny Armenta MD [Partnered Physician] - 01/10/19 2:20 pm Sherin Julien CNP [Advanced Practice Nurse] - 12/29/18 2:20 pm (1) HTN (hypertension) Qualifiers: Hypertension type: essential hypertension Qualified Code(s): I10 - Essential (primary) hypertension (4) Foot ulcer with necrosis of bone Qualifiers: Laterality: unspecified laterality Qualified Code(s): L97.504 - Non-pressure chronic ulcer of other part of unspecified foot with necrosis of bone
[2018-12-04] MEDS: Insulin NPH 100 UNIT/ML (x5UNIT) SQ SCH ×2 (09:54→21:10)
[2018-12-04] MEDS: Budesonide/Formoterol 160/4.5 1 PUFF INH IH SCH ×2 (11:01→22:25)
[2018-12-04 17:17] LABS: BUN/Creatinine Ratio 34 (6-26); Blood Urea Nitrogen 36 mg/dL (8-23); Calcium 9.2 mg/dL (8.6-10.3); Carbon Dioxide 31 mEq/L (23-29); Chloride 101 mEq/L (98-107); Glucose 209 mg/dL (70-105); Osmolality,Calculated 298 (280-300); Potassium 4.9 mEq/L (3.5-5.1); Sodium 137 mEq/L (136-145); eGFR For African Americans > 60 (> 60); eGFR For Non-African Americans > 60 (> 60)
[2018-12-05] MEDS: *HR* OxyCODONE/APAP 10/325 TABLET PO PRN ×5 (04:15→23:42)
[2018-12-05 05:05] LABS: Basophils % 0.2 %; Eosinophils # 0.1 K/mcL (0.0-0.6); Eosinophils % 0.8 %; Hemoglobin 8.1 g/dL (12.9-16.9); Immature Granulocytes % 5.6 % (0-4); Lymphocytes % 13.8 %; Mean Corpuscular Hemoglobin 28.7 pg (28.0-33.3); Mean Corpuscular Volume 95.7 fL (83.0-100.0); Mean Platelet Volume 9.7 fL (9.4-12.4); Monocytes # 1.1 K/mcL (0.0-1.3); Monocytes % 6.4 %; Neutrophils # 12.4 K/mcL (1.6-8.9); Nucleated Red Blood Cells 1.3 /100 WBC (0); Platelet Count 356 K/mcL (140-400); Red Blood Count 2.82 M/mcL (4.19-5.50); Red Cell Distribution Width 16.2 % (11.5-14.5); Segmented Neutrophils % 73.2 %
[2018-12-05 05:07] LABS: Lymphocytes # 2.4 K/mcL (0.6-4.6)
[2018-12-05 05:22] LABS: BUN/Creatinine Ratio 33 (6-26); Blood Urea Nitrogen 39 mg/dL (8-23); Calcium 9.4 mg/dL (8.6-10.3); Carbon Dioxide 32 mEq/L (23-29); Chloride 101 mEq/L (98-107); Glucose 109 mg/dL (70-105); Osmolality,Calculated 294 (280-300); Sodium 137 mEq/L (136-145); eGFR For African Americans > 60 (> 60); eGFR For Non-African Americans 60 (> 60)
[2018-12-05 05:26] LABS: Platelet Estimate Normal (Normal)
[2018-12-05 05:27] LABS: Anisocytosis 1+ (Not Present); Polychromasia 1+ (Not Present)
[2018-12-05] MEDS: Budesonide/Formoterol 160/4.5 1 PUFF INH IH SCH ×2 (07:23→20:03)
[2018-12-05] MEDS: Ipratropium/Albuterol Neb 3 ML IH SCH ×2 (07:23→20:03)
[2018-12-05] MEDS: Fenofibrate 54 MG TABLET PO SCH (08:11)
[2018-12-05] MEDS: Insulin NPH 100 UNIT/ML (x5UNIT) SQ SCH ×2 (08:12→23:13)
[2018-12-05] MEDS: Metoprolol XL (24 HR) Succ 50 MG TAB.ER.24H PO SCH (08:12)
[2018-12-05] MEDS: Apixaban 5 MG TABLET PO SCH ×2 (08:12→23:12)
[2018-12-05] MEDS: Aspirin 81 MG TAB.CHEW PO SCH (08:12)
[2018-12-05] MEDS: predniSONE 20 MG TABLET PO SCH (08:12)
[2018-12-05] MEDS: Cholecalciferol (D-3) 1,000 UNIT (25MCG) TABLET PO SCH (08:12)
[2018-12-05] MEDS: Piperacillin/Tazobactam 3.375 GM in 0.9 % Sodium Chloride Mini Bag 100 ML IVPB SCH (08:13)
[2018-12-05] MEDS: Nicotine 7 MG PATCH.TD24 TD SCH (08:13)
[2018-12-05] MEDS: Insulin LISPRO 300 UNITS/3 ML VIAL SQ SCH ×4 (08:14→23:13)
[2018-12-05] MEDS ORDERED: Lidocaine -MPF 1% 5 ML AMPUL INFILT ONE (09:32)
--- NOTE | 2018-12-05 10:01 | Infectious Disease Progress No ---
ID Progress Note Date of Encounter: 12/05/18 Time of Encounter: 09:20 - Subjective Subjective: Patient seen and examined with family at bedside. No acute events noted overnight. Patient complains of an aching pain in the left lower extremity, but denies pain in the RLE. Denies fevers, chills, rigors. Denies chest pain. States shortness of breath and cough are at baseline and are intermittent. Denies nausea, vomiting, diarrhea, or constipation. LAst BM yesterday. Denies abdominal pain or urinary complaints. Denies oral thrush or skin rashes. States appetite is good. - Objective CBC & Chem 7: 12/05/18 03:45 12/05/18 03:45 - Exam Vitals: Temp Pulse Resp BP Pulse Ox 97.5 F L 74 18 142/76 100 12/05/18 06:48 12/05/18 06:48 12/05/18 07:24 12/05/18 06:48 12/05/18 07:24 Exam: Head: Atraumatic, normal inspection, normocephalic. Eye: EOMI, PERRLA, no scleral icterus noted. ENT: Mucous membranes moist. No odontogenic infection noted. Neck: Normal inspection, no meningismus. Respiratory: Clear to auscultation. No rales, respiratory distress, rhonchi, or wheezes noted. Cardiovascular: Regular rate and rhythm, S1 and S2 audible. No murmurs, rubs, or gallops. GI: Soft, nondistended, normal bowel sounds. Extremities:No joint swelling or tenderness noted. LLE BKA site with dressing C/D/I. Right foot wound VAC dressing C/D/I. Neurological: Alert, oriented 3, no focal deficits. Psychiatric: normal affect, normal mood. Skin: Dry, intact, warm. Normal color. No rashes. - Assessment and Plan (1) Sepsis Current Visit: Yes Status: Acute The patient had 3 sepsis criteria. Likely secondary to bilateral foot infection. Improved. White blood cell count up over the weekend, but improved today. Could be reactive from steroids. Tachycardia resolved. He has been afebrile. Blood cultures drawn 11/25/18 are negative 2 sets. Qualifiers: Sepsis type: sepsis due to unspecified organism Qualified Code(s): A41.9 - Sepsis, unspecified organism SNOMED Code(s): 68583817 (2) Osteomyelitis Current Visit: Yes Status: Acute Location: Bilateral feet. Causative organism: M. morgannii and GBS and MRSA. Etiology: Likely multifactorial. Uncontrolled diabetes, tobacco use, diabetic foot ulcers. X-ray of the left foot showed findings concerning for osteomyelitis of the calcaneus. Right foot x-ray showed no acute osseous abnormality. ESR 101, CRP greater than 300. Bilateral lower extremity ABIs were normal. TCP O2 monitoring consistent with healing bilaterally. Podiatry consulted. Status post I&D of the left and right foot 11/29/[address] Clay. Operative note reviewed. Purulent noted beneath the fascia and near the bone. Intraoperative cultures are positive for MRSA, GBS and M. morgannii (left) and M. morgannii, GBS, and MRSA (right). Anaerobic cultures negative. No path specimens sent. Per podiatry, left foot was unsalvageable. Status post BKA 12/01/18. Currently on vancomycin and Zosyn. Qualifiers: Osteomyelitis type: acute hematogenous Osteomyelitis location: foot Laterality: unspecified laterality Qualified Code(s): M86.079 - Acute hematogenous osteomyelitis, unspecified ankle and foot SNOMED Code(s): 80270960 (3) Diabetic foot ulcer Current Visit: No Status: Acute Location: Bilateral heels. Status post left BKA. Podiatry consulted and following. Qualifiers: Diabetic foot ulcer location: heel Diabetes mellitus type: type 1 Laterality: left Non-pressure ulcer stage: unspecified non-pressure ulcer stage Qualified Code(s): E10.621 - Type 1 diabetes mellitus with foot ulcer; L97.429 - Non-pressure chronic ulcer of left heel and midfoot with unspecified severity SNOMED Code(s): 769990353 (4) HTN (hypertension) Current Visit: Yes Status: Chronic Qualifiers: Hypertension type: essential hypertension Qualified Code(s): I10 - Essential (primary) hypertension SNOMED Code(s): 47459707 (5) Acute respiratory failure with hypoxia Current Visit: Yes Status: Acute Acute on chronic. CXR concerning for atelectasis vs. PNA. vs. aspiration. Repeat CXR showed resolution of left basilar airspace disease and no change in the right base airspace disease. Low index of suspicion for PNA based on clinical picture. Appears back to baseline. SNOMED Code(s): 48198266, 674198451 (6) Insulin dependent diabetes mellitus Current Visit: Yes Status: Chronic Recommend aggressive glucose monitoring and control to promote wound healing and prevent re-infection. Management per the primary team. SNOMED Code(s): 61312257 (7) Peripheral vascular disease due to secondary diabetes Current Visit: Yes Status: Chronic Bilateral AGUILAR studies normal. TCPO2 monitoring consistent with healing bilaterally. SNOMED Code(s): 783819238, 465141352 - Recommendations Recommendations: Wound care and activity per the podiatry team. BKA management per the vascular team. Continue Vancomycin IV. Pharmacy to dose. Goal trough ~15. Continue Zosyn 3.375 g IV every 8 hours. Monitor renal function and for drug toxicity and dose-adjust antibiotics. Duration of treatment depends on the clinical picture, but likely 6 weeks. Will plan Zosyn to transition to IV Ertapenem when ready for discharge for ease of dosing. Will avoid the use of caphalosporins due to high risk for development of ampC gene resistance mechanism with this bacteria. Will need to receive a dose of IV Ertapenem prior to discharge. creative services specialist to assist with discharge planning. Consult VAT prior to discharge. Will need weekly CBC, BUN/Cr, ESR, CRP, Vanc trough. Will need weekly IV care per protocol. Follow up with ID 12/29/18 at 1420 Consult Discharge Plan - Plan Referrals: David Jerez [Primary Care Provider] - Denny Armenta MD [Partnered Physician] - 01/10/19 2:20 pm Sherin Julien CNP [Advanced Practice Nurse] - 12/29/18 2:20 pm Prescriptions: Ertapenem Sodium [Ertapenem] 1 gm IV DAILY 42 Days #42 vial Gabapentin [Neurontin] 600 mg PO BID 3 Days #6 tablet Oxycodone HCl/Acetaminophen [Percocet 5-325 mg Tablet] 1 each PO Q6HR PRN 3 Days #9 tablet PRN Reason: Pain Vancomycin/0.9 % Sod Chloride [Vanco 1.5 gm/150 ml-0.9% NaCl] 1.5 gm IV DAILY #42 plast..bag - Attending Attestation I have personally performed a face to face evaluation on this patient. I have reviewed and agree with the care plan. History and Exam by me shows: Assessment and Plan: 1.Sepsis 2.Osteomyelitis bilateral feet; causative organims pending. going for amputation of R BKA 3.Diabetic foot ulcer 4.HTN 5.Acute Respiratory failure with hypoxia 6.DM II insulint dependent Recommendations: Wound care and activity per the podiatry team. BKA management per the vascular team. Continue Vancomycin IV. Pharmacy to dose. Goal trough ~15. Continue Zosyn 3.375 g IV every 8 hours. Monitor renal function and for drug toxicity and dose-adjust antibiotics. Duration of treatment depends on the clinical picture, but likely 6 weeks. Will plan Zosyn to transition to IV Ertapenem when ready for discharge for ease of dosing. Will avoid the use of caphalosporins due to high risk for development of ampC gene resistance mechanism with this bacteria. Will need to receive a dose of IV Ertapenem prior to discharge. creative services specialist to assist with discharge planning. Consult VAT prior to discharge. Will need weekly CBC, BUN/Cr, ESR, CRP, Vanc trough. Will need weekly IV care per protocol. Follow up with ID 12/29/18 at 1424
[2018-12-05] MEDS: Ertapenem 1,000 MG in 0.9 % Sodium Chloride Mini Bag 100 ML IVPB SCH (12:44)
--- NOTE | 2018-12-05 13:01 | Podiatry Progress Note ---
Date of Encounter: 12/05/18 Time of Encounter: 12:30 - Assessment and Plan (1) Diabetic foot ulcer Current Visit: No Status: Acute Assessment: S/P Incision and drainage of multiple planes left foot and Incision and drainage of multiple planes right foot with application of PuraPly antimicrobial wound graft with Dr. Clay on 11/29/18 S/P BKA of left lower extremity with Dr. Armenta 12/01/[address] to right foot Faint pulses RLE Dependent rubor RLE WBC 17.0 however trending down, likely reactive from steriod use, afebrile XR of right foot negative for any osseous abnormality BC negative wound cultures + m morganii GBS and MRSA ID on board, currently on vanc and zosyn and pending PICC placement today Plan: VAC placed, MWF dressing changes Puraply graft in place Dressing completed, see below Limited weight bearing, forefoot only, do not place weight to heel Social service consult for ECF/rehab placement Patient may be discharged after PICC placement Follow up in wound care center with Dr. Clay 1 week s/p discharge, please make appointment prior to d/c. Right foot prepped skin with skin prep.. Painted all maceration with betadine. Covered all maceration with 4x4 dry gauze. Placed tegaderm drape in window pane fashion. Placed adaptic over purpaply graft. Placed black granulafoam to wound bed. Covered with tegaderm drape. Placed to suction at -125 mmHG. Good seal noted. Secured with drain sponge, kerlix, and SHANIA wrap. Qualifiers: Diabetic foot ulcer location: heel Diabetes mellitus type: type 1 Laterality: left Non-pressure ulcer stage: unspecified non-pressure ulcer stage Qualified Code(s): E10.621 - Type 1 diabetes mellitus with foot ulcer; L97.429 - Non-pressure chronic ulcer of left heel and midfoot with unspecified severity Subjective Principal diagnosis: Necrotic ulcers both heels Interval history: Patient resting comfortably in bed. Denies any pain. States he is slightly short of breath. reports breathing treatment 2 hours ago. Patient denies any known fevers, chills, n/v fls or calf pain. Objective - Vital Signs Vital Signs: Vital Signs Temp Pulse Resp BP Pulse Ox 12/05/18 10:56 97.5 F L 62 22 147/79 96 12/05/18 09:00 3 12/05/18 07:24 18 100 12/05/18 06:48 97.5 F L 74 20 142/76 96 12/05/18 04:23 98.2 F 60 16 136/75 94 12/05/18 00:26 97.7 F 64 15 144/72 94 12/04/18 22:28 16 95 12/04/18 18:44 97.7 F 67 18 158/73 99 12/04/18 15:20 16 99 12/04/18 14:30 97.7 F 62 17 186/65 95 Intake and Output 12/04/18 12/05/18 12/05/18 23:59 07:59 15:59 Intake Total 100 / 850 100 / 460 360 / 460 Output Total 400 / 1975 800 / 1250 450 / 1250 Balance -300 / -1125 -700 / -790 -90 / -790 Intake: IV Fluids 100 / 550 100 / 100 Zosyn 3.375 GM In 0.9 % Sodium 100 / 300 100 / 100 Chloride (Mini-Bag +) 100 ML @ 25 mls/hr IVPB Q8HR [facility] Rx#: [id number] Oral 0 / 360 360 / 360 Output: Catheter 400 / 400 800 / 1250 450 / 1250 Urethral (Collier) 400 / 400 Other: Meal Breakfast Percent of Meal Consumed 100% Weight 113.2 kg Blood Glucose* 288 109 188 Patient Weight 12/05/18 23:59 Weight 113.2 kg - Exam Exam: Constitiutional: Alert and oriented. No acute distress noted Vascular: Faint DP/PT RLE, CFT <3 sec to all digits, warm to cool from tibia to toes RLE, no calf pain with squeeze RLE, L BKA Neurologic: No sensation to touch Dermatologic: L BKA site with dressing in place, right plantar foot wound with puraply graft in tact, maceration noted to surrounding tissue, surrounding tissue erythematous however improving in appearance, dependent rubor noted bilaterally. Slight maceration to lateral aspect of wound of right heel. as well as medially along the midfoot and arch line. 25ml serosang drainage noted to canister. Musculoskeletal: 2/5 muscle strength and normal tone bilaterally. - Lab Result Diagrams: 12/05/18 03:45 07/29/19 03:45 Labs: Abnormal lab results WBC 17.0 K/mcL (4.3-11.1) H 12/05/18 03:45 RBC 2.82 M/mcL (4.19-5.50) L 12/05/18 03:45 Hgb 8.1 g/dL (12.9-16.9) L 12/05/18 03:45 Hct 27.0 % (37.5-50.1) L 12/05/18 03:45 MCHC 30.0 g/dL (31.6-35.5) L 12/05/18 03:45 RDW 16.2 % (11.5-14.5) H 12/05/18 03:45 Immature Gran % 5.6 % (0-4) H 12/05/18 03:45 Neutrophils # 12.4 K/mcL (1.6-8.9) H 12/05/18 03:45 Nucleated RBCs/100 WBC 1.3 /100 WBC (0) H 12/05/18 03:45 Reactive Lymphocytes Present (Not Present) A 12/03/18 20:43 Large Platelets Present (Not Present) A 12/03/18 20:43 Polychromasia 1+ (Not Present) A 12/05/18 03:45 Hypochromasia Present (Not Present) A 12/04/18 01:50 Anisocytosis 1+ (Not Present) A 12/05/18 03:45 ESR 101 mm/hr (0-10) H 11/25/18 21:51 PT 14.3 Seconds (9.4-12.1) H 11/26/18 01:57 Heparin Anti-Xa, Unfract 0.76 IU/mL (0.30-0.70) H 12/02/18 10:45 ABG pO2 73 mmHg (85-104) L 11/27/18 05:47 ABG Total CO2 27 mEq/L (20-26) H 11/27/18 05:47 ABG O2 Saturation 94 % (95-98) L 11/27/18 05:47 Sodium 135 mEq/L (136-145) L 12/03/18 20:43 Potassium 5.5 mEq/L (3.5-5.1) H 12/04/18 01:50 Chloride 96 mEq/L (98-107) L 11/26/18 01:57 Carbon Dioxide 32 mEq/L (23-29) H 12/05/18 03:45 BUN 39 mg/dL (8-23) H 12/05/18 03:45 Est GFR (Non-Af Amer) 57 (> 60) L 12/04/18 01:50 BUN/Creatinine Ratio 33 (6-26) H 12/05/18 03:45 Glucose 109 mg/dL (70-105) H 12/05/18 03:45 POC Glucose 109 mg/dL (70-99) H 12/05/18 06:50 Hemoglobin A1c 10.9 % (-5.6) H 11/26/18 01:57 Calculated Osmolality 301 (280-300) H 11/29/18 03:48 Calcium 8.5 mg/dL (8.6-10.3) L 11/30/18 04:25 C-Reactive Protein > 300 mg/L (Less than 10) H 11/25/18 21:51 Serum Total Protein 6.3 g/dL (6.4-8.9) L 11/26/18 01:57 Albumin 2.4 g/dL (3.5-5.7) L 11/26/18 01:57 Globulin 3.9 g/dL (2.4-3.5) H 11/26/18 01:57 Albumin/Globulin Ratio 0.6 (1.1-2.2) L 11/26/18 01:57 HDL Cholesterol 33 mg/dL (40-59) L 11/26/18 01:57 Urine Clarity Cloudy (Clear) A 11/26/18 06:11 Ur Specific Bruin > 1.030 (1.010-1.025) H 11/26/18 06:11 Urine Protein >=300 mg/dL (Neg-Trace) H 11/26/18 06:11 Urine Glucose (UA) >=1000 mg/dL (Normal) H 11/26/18 06:11 Urine Blood Small (Negative) H 11/26/18 06:11 Urine Bilirubin Small (Negative) H 11/26/18 06:11 Urine Microscopic RBC 5-15 per hpf (0-3) H 11/26/18 06:11 Urine Microscopic WBC 5-15 per hpf (0-3) H 11/26/18 06:11 Ur Squamous Epith Cells Many per lpf (None-Few) H 11/26/18 06:11 Vancomycin Trough 20 mcg/mL (5-10) H 12/04/18 21:00 Microbiology, Last 48 Hours 11/29/18 18:56 Anaerobic Culture - Preliminary Left Foot At this time, no anaerobic growth is present. The culture will be finalized after 5 days of incubation. 11/29/18 18:56 Anaerobic Culture - Final Right Foot No anaerobes were recovered. Consult Discharge Plan - Plan Referrals: David Jerez [Primary Care Provider] - Denny Armenta MD [Partnered Physician] - 01/10/19 2:20 pm Sherin Julien CNP [Advanced Practice Nurse] - 12/29/18 2:20 pm Prescriptions: Ertapenem Sodium [Ertapenem] 1 gm IV DAILY 42 Days #42 vial Gabapentin [Neurontin] 600 mg PO BID 3 Days #6 tablet Oxycodone HCl/Acetaminophen [Percocet 5-325 mg Tablet] 1 each PO Q6HR PRN 3 Days #9 tablet PRN Reason: Pain Vancomycin/0.9 % Sod Chloride [Vanco 1.25 gm/250 ml-0.9% NaCl] 1.25 gm IV DAILY 42 Days #42 plast..bag
--- NOTE | 2018-12-05 13:05 | Discharge Summary ---
- NOTES TO OUTPATIENT PROVIDER Notes to Outpatient Provider: Patient will be discharged to SNF for further rehabilitation. Patient is DNR CCA DNI. We will finish 6 weeks of antibiotics for osteomyelitis. Will need weekly CBC, BUN/Cr, ESR, CRP, Vanc trough. We did follow-up with podiatry, vascular surgery and infectious disease. Orders not resulted at time of discharge: Pending orders 11/29/18 18:56 Culture,Anaerobic [RM] Routine 12/01/18 17:43 Surgical Pathology [PTH] Routine Date of Encounter: 12/05/18 Time of Encounter: 12:54 - Discharge Diagnosis (1) HTN (hypertension) Priority: Secondary Status: Chronic Qualifiers: Hypertension type: essential hypertension Qualified Code(s): I10 - Essential (primary) hypertension (2) Insulin dependent diabetes mellitus Priority: Secondary Status: Chronic (3) Peripheral vascular disease due to secondary diabetes Priority: Secondary Status: Chronic (4) Foot ulcer with necrosis of bone Priority: Primary Status: Acute Qualifiers: Laterality: unspecified laterality Qualified Code(s): L97.504 - Non- pressure chronic ulcer of other part of unspecified foot with necrosis of bone (5) Hyponatremia Priority: Primary Status: Acute (6) Code status needs review Priority: Secondary Status: Chronic (7) Acute respiratory failure with hypoxia Priority: Primary Status: Acute (8) COPD exacerbation Priority: Primary Status: Acute (9) Systolic heart failure Priority: Secondary Status: Chronic Qualifiers: Heart failure chronicity: chronic Qualified Code(s): I50.22 - Chronic systolic (congestive) heart failure (10) Hypoglycemia Priority: Secondary Status: Acute (11) Osteomyelitis Priority: Primary Status: Acute Qualifiers: Osteomyelitis type: acute hematogenous Osteomyelitis location: foot Laterality: unspecified laterality Qualified Code(s): M86.079 - Acute hematogenous osteomyelitis, unspecified ankle and foot (12) Sepsis Priority: Primary Status: Acute Qualifiers: Sepsis type: sepsis due to unspecified organism Qualified Code(s): A41.9 - Sepsis, unspecified organism Hospital course: Mr. Best is a 77 year old male with past medical history of diabetes, hypertension, hyperlipidemia, congestive systolic heart failure, peripheral artery disease came from hospice at [place] referred by local community youth secretary for management of wounds on his heels. Patient was started on broad-spectrum antibiotics initially for diabetic foot ulcer.. He developed acute respiratory failure with hypoxia from COPD exacerbation and was started on treatment with steroids and bronchodilators. Patient has signs of osteomyelitis on x-ray. His initial surgery was delayed due to respiratory status. He underwent incision and drainage of left and right foot on 11/29. His left foot was deemed unsalvageable. Vascular consult was obtained and he underwent left BKA. Wound cultures grew Morganella, strep agalactiae and MRSA. Antibiotics were managed with infectious disease consultation. Patient steroids were tapered as his respiratory status improved. His blood sugars were initially uncontrolled given he received steroids and uncontrolled diabetes however with insulin his blood sugar initially dropped due to multiple reasons however it was corrected in one day. He did develop mild ROSALINO which got corrected with IV fluids and Collier catheter. He had one episode of NSVT with mild hyperkalemia. Palliative care consult was obtained to clarify CODE STATUS and he and family agreed for CODE STATUS to be DNR DNI CCA. Patient would finish 6 weeks of vancomycin and ertapenam per ID recommendation. Will need weekly CBC, BMP, ESR, CRP and vancomycin trough. We will need to follow up with infectious disease and podiatry as outpatient. He will be discharged to rehabilitation from hospital. Discharge discussed with: patient, family, nurse, social work, case management, recruitment consultant - Time Spent with Patient Total time spent providing and/or coordinating discharge services: Time spent: Greater than 30 minutes (40) - Discharge Medications Prescriptions: New Ertapenem Sodium [Ertapenem] 1 gm IV DAILY 42 Days #42 vial Insulin LISPRO [HumaLOG] 0 units SQ TIDAC vial Insulin LISPRO [HumaLOG] 0 units SQ HS vial Insulin NPH, HUMAN [HumuLIN N] 35 unit SQ BID [id number] predniSONE [PredniSONE] 20 mg PO DAILY 2 Days #2 tablet Vancomycin/0.9 % Sod Chloride [Vanco 1.25 gm/250 ml-0.9% NaCl] 1.25 gm IV DAILY 42 Days #42 plast..bag Continued Aspirin 81 mg PO DAILY Atorvastatin [Lipitor] 40 mg PO HS DULoxetine [Cymbalta] 30 mg PO DAILY Potassium Chloride [Klor-Con 10] 20 meq PO BID Oxybutynin Chloride [Ditropan XL] 5 mg PO BID Metoprolol Succinate [Toprol Xl] 50 mg PO DAILY Magnesium Oxide [Magnesium] 400 mg PO BID Levalbuterol HCl [Xopenex Concentrate] 1.25 mg IH Q4HR PRN PRN Reason: Shortness Of Breath Levalbuterol HCl [Xopenex Concentrate] 1.25 mg IH Q6HR Ipratropium/Albuterol Sulfate [Iprat-Albut 0.5-3(2.5) mg/3 ml] 3 ml IH Q6HR PRN PRN Reason: Shortness Of Breath Furosemide [Lasix] 40 mg PO TID Cholecalciferol (Vitamin D3) [Vitamin D3] 4,000 unit PO TID Budesonide/Formoterol 160/4.5 [Symbicort 160/4.5] 2 puff IH BIDR Apixaban [Eliquis] 5 mg PO BID Albuterol Neb [Proventil Neb] 90 mcg IH Q6HR PRN PRN Reason: Shortness Of Breath Fenofibrate Nanocrystallized [Fenofibrate] 145 mg PO DAILY Gentamicin Sulfate Cream [Garamycin] 1 appl TP TID Metformin HCl 1,000 mg PO BID Tiotropium [Spiriva] 1 puff PO DAILY Gabapentin [Neurontin] 600 mg PO BID 3 Days #6 tablet Changed Oxycodone HCl/Acetaminophen [Percocet 5-325 mg Tablet] 1 each PO Q6HR PRN 3 Days #9 tablet PRN Reason: Pain Discontinued Glimepiride [Amaryl] 4 mg PO DAILY Morphine Oral CONC [Roxanol] 0.25 ml PO Q3H PRN PRN Reason: Shortness Of Breath Gabapentin [Neurontin] 800 mg PO TID Valsartan [Diovan] 160 mg PO DAILY Doxycycline Hyclate [Morgidox] 100 mg PO BID diazePAM [Valium] 5 mg PO BID Non-Formulary Medication 0 each PO AD Home Medications: Aspirin 81 mg PO DAILY 02/12/15 [History] Atorvastatin [Lipitor] 40 mg PO HS 02/18/17 [History] DULoxetine [Cymbalta] 30 mg PO DAILY 02/18/17 [History] Potassium Chloride [Klor-Con 10] 20 meq PO BID 02/18/17 [History] Albuterol Neb [Proventil Neb] 90 mcg IH Q6HR PRN 11/26/18 [History] Apixaban [Eliquis] 5 mg PO BID 11/26/18 [History] Budesonide/Formoterol 160/4.5 [Symbicort 160/4.5] 2 puff IH BIDR 11/26/18 [History] Cholecalciferol (Vitamin D3) [Vitamin D3] 4,000 unit PO TID 11/26/18 [History] Furosemide [Lasix] 40 mg PO TID 11/26/18 [History] Ipratropium/Albuterol Sulfate [Iprat-Albut 0.5-3(2.5) mg/3 ml] 3 ml IH Q6HR PRN 11/26/18 [History] Levalbuterol HCl [Xopenex Concentrate] 1.25 mg IH Q4HR PRN 11/26/18 [History] Levalbuterol HCl [Xopenex Concentrate] 1.25 mg IH Q6HR 11/26/18 [History] Magnesium Oxide [Magnesium] 400 mg PO BID 11/26/18 [History] Metoprolol Succinate [Toprol Xl] 50 mg PO DAILY 11/26/18 [History] Oxybutynin Chloride [Ditropan XL] 5 mg PO BID 11/26/18 [History] Fenofibrate Nanocrystallized [Fenofibrate] 145 mg PO DAILY 11/27/18 [History] Gentamicin Sulfate Cream [Garamycin] 1 appl TP TID 11/27/18 [History] Metformin HCl 1,000 mg PO BID 11/27/18 [History] Tiotropium [Spiriva] 1 puff PO DAILY 11/27/18 [History] Ertapenem Sodium [Ertapenem] 1 gm IV DAILY 42 Days #42 vial 12/05/18 [Rx] Gabapentin [Neurontin] 600 mg PO BID 3 Days #6 tablet 12/05/18 [Rx] Insulin LISPRO [HumaLOG] 0 units SQ HS vial 12/05/18 [Rx] Insulin LISPRO [HumaLOG] 0 units SQ TIDAC vial 12/05/18 [Rx] Insulin NPH, HUMAN [HumuLIN N] 35 unit SQ BID [id number] 12/05/18 [Rx] Oxycodone HCl/Acetaminophen [Percocet 5-325 mg Tablet] 1 each PO Q6HR PRN 3 Days #9 tablet 12/05/18 [Rx] Vancomycin/0.9 % Sod Chloride [Vanco 1.25 gm/250 ml-0.9% NaCl] 1.25 gm IV DAILY 42 Days #42 plast..bag 12/05/18 [Rx] predniSONE [PredniSONE] 20 mg PO DAILY 2 Days #2 tablet 12/05/18 [Rx] Allergies/Adverse Reactions: Allergy/AdvReac Type Severity Reaction Status Date / Time Sulfa (Sulfonamide Allergy Severe Itching, Verified 11/27/18 18:37 Antibiotics) hives, rash Latex, Natural Rubber Allergy Rash Verified 11/27/18 18:37 Tape Allergy Severe Pulls skin Uncoded 11/27/18 18:37 off Date of admission: 11/27/18 08:52 Primary care physician: David Jerez Consults: 11/25/18 20:59 Consult to Podiatry [CONS] Stat Consulting Provider: [facility] Reason for Consult: necrotic feet Time Notified: 21:00 Call Completed: Yes 11/26/18 00:52 Consult to Film Writer [CONS] Routine Reason for SW Consult: Poor self-care at home Patient would like information about living will/POA paperwork 11/29/18 19:44 Consult to Vascular Surgery [CONS] Routine Consulting Provider: Vascular Surgery [facility] Reason for Consult: Evaluate for below-knee amputation left side Time Notified: 19:45 Call Completed: No 11/30/18 08:43 Consult to Infectious Diseases [CONS] Routine Consulting Provider: Infectious Disease [facility] Reason for Consult: osteomyelitis Call Completed: Yes 12/01/18 20:32 Consult to Physical Therapy [CONS] Routine Comment: Evaluate, develop and implement POC Reason for Consult: s/p LBKA 12/01/2018. Evaluation for rehab. Does patient have active BEDREST order?: No Is patient medically & hemodynamically stable?: Yes Patient assessed for mobility or mobilized this visit?: No OT [Consult to Occupational Therapy] [CONS] Routine Comment: Evaluate, develop and implement POC Reason for Consult: s/p LBKA 12/01/2018. Evaluation for rehab. Does patient have active BEDREST order?: No Is patient medically & hemodynamically stable?: Yes Patient assessed for mobility or mobilized this visit?: Yes 12/05/18 09:32 Consult to Invasive Line Access Team [CONS] Routine Reason for Consult: Picc Line Insertion Line Type: PICC PICC line indications: senior living Med/Antibiotic Discharging clinician: Oc Bach - Constitutional Vitals: Temp Pulse Resp BP Pulse Ox 97.5 F L 62 22 147/79 96 12/05/18 10:56 12/05/18 10:56 12/05/18 10:56 12/05/18 10:56 12/05/18 10:56 Exam: General: In no acute distress. Respiratory exam: no accessory muscle use. decreased air entry but improved. minimal crackles at base Cardiovascular exam: RRR, +S1, +S2. no murmur, gallop, rubs. GI/Abdominal exam: Non-tender, Non-distended, normal bowel sounds, soft, no peritoneal signs. Extremities exam: 1+ pedal edema on Rt LE, LT BKA with dressing. Rt toes with better color, has wound vac and boots. LUE with pitting edema, improve. Neurological exam: CN II-XII intact, AO X3, no focal deficits Skin exam: rt LE chronic dermatitis - Patient Status Disposition: Transfer SNF Condition: Fair - Discharge Instructions Follow Up With: David Jerez [Primary Care Provider] - Denny Armenta MD [Partnered Physician] - 01/10/19 2:20 pm Sherin Julien CNP [Advanced Practice Nurse] - 12/29/18 2:20 pm - Diet and Activity Activity: as per physical therapy
--- NOTE | 2018-12-05 14:31 | Electrocardiograph Report ---
[place] [id number] Test Date: 2018-12-03 Pat Name: Jose Alfredo Best Department: 115 Room: 3A15 Gender: M Pcb Designer: : 1940 Requested By: Augustine Guillen Order Number: [id number] Reading MD: Jeffery Alfaro Measurements Intervals [place] Rate: 60 P: 212 MO: 68 QRS: -73 QRSD: 146 T: 109 QT: 477 QTc: 477 Interpretive Statements ELECTRONIC VENTRICULAR PACEMAKER ABNORMAL RHYTHM ECG Electronically Signed On 12-05-2018 14:29:42 EDT by Jeffery Alfaro
--- NOTE | 2018-12-05 15:12 | Physician Discharge Referral ---
ExtendedCare Referral Info Institutional Level of Care: Skilled - Diagnosis (1) HTN (hypertension) Status: Chronic (2) Insulin dependent diabetes mellitus Status: Chronic (3) Peripheral vascular disease due to secondary diabetes Status: Chronic (4) Foot ulcer with necrosis of bone Status: Acute (5) Hyponatremia Status: Acute (6) Code status needs review Status: Chronic (7) Acute respiratory failure with hypoxia Status: Acute (8) COPD exacerbation Status: Acute (9) Systolic heart failure Status: Chronic (10) Hypoglycemia Status: Acute (11) Osteomyelitis Status: Acute (12) Sepsis Status: Acute - Transfer Medications Prescriptions: Ertapenem Sodium [Ertapenem] 1 gm IV DAILY 42 Days #42 vial Gabapentin [Neurontin] 600 mg PO BID 3 Days #6 tablet Oxycodone HCl/Acetaminophen [Percocet 5-325 mg Tablet] 1 each PO Q6HR PRN 3 Days #9 tablet PRN Reason: Pain Vancomycin/0.9 % Sod Chloride [Vanco 1.25 gm/250 ml-0.9% NaCl] 1.25 gm IV DAILY 42 Days #42 plast..bag Home Medications: Aspirin 81 mg PO DAILY 02/12/15 [History] Atorvastatin [Lipitor] 40 mg PO HS 02/18/17 [History] DULoxetine [Cymbalta] 30 mg PO DAILY 02/18/17 [History] Potassium Chloride [Klor-Con 10] 20 meq PO BID 02/18/17 [History] Albuterol Neb [Proventil Neb] 90 mcg IH Q6HR PRN 11/26/18 [History] Apixaban [Eliquis] 5 mg PO BID 11/26/18 [History] Budesonide/Formoterol 160/4.5 [Symbicort 160/4.5] 2 puff IH BIDR 11/26/18 [History] Cholecalciferol (Vitamin D3) [Vitamin D3] 4,000 unit PO TID 11/26/18 [History] Furosemide [Lasix] 40 mg PO TID 11/26/18 [History] Ipratropium/Albuterol Sulfate [Iprat-Albut 0.5-3(2.5) mg/3 ml] 3 ml IH Q6HR PRN 11/26/18 [History] Levalbuterol HCl [Xopenex Concentrate] 1.25 mg IH Q4HR PRN 11/26/18 [History] Levalbuterol HCl [Xopenex Concentrate] 1.25 mg IH Q6HR 11/26/18 [History] Magnesium Oxide [Magnesium] 400 mg PO BID 11/26/18 [History] Metoprolol Succinate [Toprol Xl] 50 mg PO DAILY 11/26/18 [History] Oxybutynin Chloride [Ditropan XL] 5 mg PO BID 11/26/18 [History] Fenofibrate Nanocrystallized [Fenofibrate] 145 mg PO DAILY 11/27/18 [History] Gentamicin Sulfate Cream [Garamycin] 1 appl TP TID 11/27/18 [History] Metformin HCl 1,000 mg PO BID 11/27/18 [History] Tiotropium [Spiriva] 1 puff PO DAILY 11/27/18 [History] Ertapenem Sodium [Ertapenem] 1 gm IV DAILY 42 Days #42 vial 12/05/18 [Rx] Gabapentin [Neurontin] 600 mg PO BID 3 Days #6 tablet 12/05/18 [Rx] Insulin LISPRO [HumaLOG] 0 units SQ HS vial 12/05/18 [Rx] Insulin LISPRO [HumaLOG] 0 units SQ TIDAC vial 12/05/18 [Rx] Insulin NPH, HUMAN [HumuLIN N] 35 unit SQ BID [id number] 12/05/18 [Rx] Oxycodone HCl/Acetaminophen [Percocet 5-325 mg Tablet] 1 each PO Q6HR PRN 3 Days #9 tablet 12/05/18 [Rx] Vancomycin/0.9 % Sod Chloride [Vanco 1.25 gm/250 ml-0.9% NaCl] 1.25 gm IV DAILY 42 Days #42 plast..bag 12/05/18 [Rx] predniSONE [PredniSONE] 20 mg PO DAILY 2 Days #2 tablet 12/05/18 [Rx] Allergies/Adverse Reactions: Allergy/AdvReac Type Severity Reaction Status Date / Time Sulfa (Sulfonamide Allergy Severe Itching, Verified 11/27/18 18:37 Antibiotics) hives, rash Latex, Natural Rubber Allergy Rash Verified 11/27/18 18:37 Tape Allergy Severe Pulls skin Uncoded 11/27/18 18:37 off - Respiratory Orders Smoking Cessation: Smoking cessation has been advised. For more information, call the [place] Tobacco Quit Line at 3-810-TWJF-NOW. CERTIFICATION: I certify that the transfer of the above named patient to an Extended Care Facility is necessary for the continuing treatment of the diagnosis listed. The above information is true and accurate reflection of patient's current condition. Confidential - Redisclosure prohibited without a patient's written consent.
[2018-12-05] MEDS: hydrALAZINE 10 MG TABLET PO PRN (17:07)
--- NOTE | 2018-12-05 17:21 | Vascular/[facility] Progress Note ---
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 His incision is healing well. He will have daily dressing changes. He douglas will be left in for approximately 4 weeks. He will follow up in vascular clinic for further evaluation and to assess the timing of staple removal. He may be discharged to rehabilitation from a vascular perspective. Qualifiers: Peripheral atherosclerosis artery type: [place] artery Qualified Code(s): I70.244 - Atherosclerosis of [place] arteries of left leg with ulceration of heel and midfoot (2) HTN (hypertension) Current Visit: Yes Status: Chronic Qualifiers: Hypertension type: essential hypertension Qualified Code(s): I10 - [place] l (primary) hypertension (3) Osteomyelitis Current Visit: Yes Status: Acute The patient has osteomyelitis and is currently receiving intravenous antibodies. He denies any fevers or chills. Qualifiers: Osteomyelitis type: acute hematogenous Osteomyelitis location: foot Laterality: unspecified laterality Qualified Code(s): M86.079 - Acute hematogenous osteomyelitis, unspecified ankle and foot (4) Chronic disease anemia Current Visit: Yes Status: Chronic The patient has chronic disease anemia with acute expected postoperative blood loss anemia. He is hemodynamically stable without evidence of ongoing blood loss. - Subjective Interval history: The patient is alert and comfortable. He denies any incisional pain. He denies fevers or chills. He denies any chest pain or shortness of breath. Vital Signs, Last 4 Hours Temp Pulse Resp BP Pulse Ox 12/05/18 16:48 97.5 F L 61 15 184/84 98 - Physical Examination General: Present: Conversant Cardiac: Present: Normal S1 and S2 Lungs: Present: Normal Breath Sounds Vascular: Present: Surgical incisions (Incision clean, dry and intact without erythema or drainage, no hematoma) Abdomen: Present: Soft Results 12/05/18 03:45 12/05/18 03:45 Lab Results, Last 24 hours 12/05/18 12/05/18 03:45 03:45 WBC 17.0 H Hgb 8.1 L Hct 27.0 L Plt Count 356 Sodium 137 Potassium 5.0 Chloride 101 Carbon Dioxide 32 H BUN 39 H Creatinine 1.18 Glucose 109 H Calcium 9.4 Consult Discharge Plan - Plan Referrals: David Jerez [Primary Care Provider] - Denny Armenta MD [Partnered Physician] - 01/10/19 2:20 pm Sherin Julien CNP [Advanced Practice Nurse] - 12/29/18 2:20 pm Prescriptions: Ertapenem Sodium [Ertapenem] 1 gm IV DAILY 42 Days #42 vial Gabapentin [Neurontin] 600 mg PO BID 3 Days #6 tablet Oxycodone HCl/Acetaminophen [Percocet 5-325 mg Tablet] 1 each PO Q6HR PRN 3 Days #9 tablet PRN Reason: Pain Vancomycin/0.9 % Sod Chloride [Vanco 1.25 gm/250 ml-0.9% NaCl] 1.25 gm IV DAILY 42 Days #42 plast..bag
[2018-12-06] MEDS: Ertapenem 1,000 MG in 0.9 % Sodium Chloride Mini Bag 100 ML IVPB SCH (07:49)
[2018-12-06] MEDS: Insulin LISPRO 300 UNITS/3 ML VIAL SQ SCH ×2 (07:54→12:00)
[2018-12-06] MEDS: Nicotine 7 MG PATCH.TD24 TD SCH (07:54)
[2018-12-06] MEDS: Aspirin 81 MG TAB.CHEW PO SCH (08:01)
[2018-12-06] MEDS: Apixaban 5 MG TABLET PO SCH (08:02)
[2018-12-06] MEDS: Insulin NPH 100 UNIT/ML (x5UNIT) SQ SCH (08:02)
[2018-12-06] MEDS: Cholecalciferol (D-3) 1,000 UNIT (25MCG) TABLET PO SCH (08:03)
[2018-12-06] MEDS: Fenofibrate 54 MG TABLET PO SCH (08:03)
[2018-12-06] MEDS: predniSONE 20 MG TABLET PO SCH (08:03)
[2018-12-06] MEDS: Metoprolol XL (24 HR) Succ 50 MG TAB.ER.24H PO SCH (08:03)
[2018-12-06] MEDS: *HR* OxyCODONE/APAP 10/325 TABLET PO PRN ×2 (09:14→13:18)
--- NOTE | 2018-12-06 09:52 | Infectious Disease Progress No ---
ID Progress Note Date of Encounter: 12/06/18 Time of Encounter: 09:50 - Subjective Subjective: Patient seen and examined. No acute events noted overnight. Patient states overall he doesn't feel very well today and hurts "all over." He states he is tired and didn't sleep much last night. Denies fevers, chills, rigors. Denies chest pain. States shortness of breath and cough are at baseline and are intermittent. Denies nausea, vomiting, diarrhea, or constipation. Last BM y esterday. Denies abdominal pain or urinary complaints. Denies oral thrush or skin rashes. States appetite is okay, but he is not hungry this morning. - Objective CBC & Chem 7: 12/05/18 03:45 12/05/18 03:45 - Exam Vitals: Temp Pulse Resp BP Pulse Ox 97.9 F 68 15 161/71 95 12/06/18 07:24 12/06/18 07:24 12/06/18 07:24 12/06/18 07:24 12/06/18 07:24 Exam: Head: Atraumatic, normal inspection, normocephalic. Eye: EOMI, PERRLA, no scleral icterus noted. ENT: Mucous membranes moist. No odontogenic infection noted. Neck: Normal inspection, no meningismus. Respiratory: Clear to auscultation. No rales, respiratory distress, rhonchi, or wheezes noted. Cardiovascular: Regular rate and rhythm, S1 and S2 audible. No murmurs, rubs, or gallops. GI: Soft, nondistended, normal bowel sounds. Extremities:No joint swelling or tenderness noted. LLE BKA site with dressing C/D/I. Right foot wound VAC dressing C/D/I. Neurological: Alert, oriented 3, no focal deficits. Psychiatric: normal affect, normal mood. Skin: Dry, intact, warm. Normal color. No rashes. - Assessment and Plan (1) Sepsis Status: Acute The patient had 3 sepsis criteria. Likely secondary to bilateral foot infection. Improved. White blood cell count not checked this morning. Tachycardia resolved. He has been afebrile. Blood cultures drawn 11/25/18 are negative 2 sets. Qualifiers: Sepsis type: sepsis due to unspecified organism SNOMED Code(s): 61541835 (2) Osteomyelitis Status: Acute Location: Bilateral feet. Causative organism: M. morgannii and GBS and MRSA. Etiology: Likely multifactorial. Uncontrolled diabetes, tobacco use, diabetic foot ulcers. X-ray of the left foot showed findings concerning for osteomyelitis of the calca neus. Right foot x-ray showed no acute osseous abnormality. ESR 101, CRP greater than 300. Bilateral lower extremity ABIs were normal. TCP O2 monitoring consistent with healing bilaterally. Podiatry consulted. Status post I&D of the left and right foot 11/29/[address] Clay. Operative note reviewed. Purulent noted beneath the fascia and near the bone. Intraoperative cultures are positive for MRSA, GBS and M. morgannii (left) and M. morgannii, GBS, and MRSA (right). Anaerobic cultures negative. No path specimens sent. Per podiatry, left foot was unsalvageable. Status post BKA 12/01/18. Currently on vancomycin and Ertapenem. Qualifiers: Osteomyelitis type: acute hematogenous Osteomyelitis location: foot Laterality: unspecified laterality Qualified Code(s): M86.079 - Acute hematog enous osteomyelitis, unspecified ankle and foot SNOMED Code(s): 64744127 (3) Diabetic foot ulcer Status: Acute Location: Bilateral heels. Status post left BKA. Podiatry consulted and following. Qualifiers: Diabetic foot ulcer location: heel Diabetes mellitus type: type 1 Laterality: left Non-pressure ulcer stage: unspecified non-pressure ulcer stage Qualified Code(s): E10.621 - Type 1 diabetes mellitus with foot ulcer; L97.429 - Non-pressure chronic ulcer of left heel and midfoot with unspecified severity SNOMED Code(s): 354547840 (4) HTN (hypertension) Status: Chronic Qualifiers: Hypertension type: essential hypertension Qualified Code(s): I10 - Esse ntial (primary) hypertension SNOMED Code(s): 84137482 (5) Acute respiratory failure with hypoxia Status: Acute Acute on chronic. CXR concerning for atelectasis vs. PNA. vs. aspiration. Repeat CXR showed resolution of left basilar airspace disease and no change in the right base airspace disease. Low index of suspicion for PNA based on clinical picture. Appears back to baseline. SNOMED Code(s): 11278563, 140762765 (6) Insulin dependent diabetes mellitus Status: Chronic Recommend aggressive glucose monitoring and control to promote wound healing and prevent re-infection. Management per the primary team. SNOMED Code(s): 98780488 (7) Peripheral vascular disease due to secondary diabetes Status: Chronic Bilateral AGUILAR studies normal. TCPO2 monitoring consistent with healing bilaterally. SNOMED Code(s): 911261510, 537005942 - Recommendations Recommendations: Repeat CBC. Wound care and activity per the podiatry team. BKA management per the vascular team. Continue Vancomycin IV. Pharmacy to dose. Goal trough ~15. Continue Ertapenem 1 gram IV daily. Monitor renal function and for drug toxicity and dose-adjust antibiotics. Duration of treatment depends on the clinical picture, but likely 6 weeks. Will plan to treat through 01/10/19 at least. sales representative facility services to assist with discharge planning. Will need weekly CBC, BUN/Cr, ESR, CRP, Vanc trough. Will need weekly IV care per protocol. Follow up with ID 12/29/18 at 1420 Consult Discharge Plan - Plan Referrals: David Jerez [Primary Care Provider] - Denny Armenta MD [Partnered Physician] - 01/10/19 2:20 pm Sherin Julien CNP [Advanced Practice Nurse] - 12/29/18 2:20 pm Cruzito Clay DPM [Partnered Physician] - 12/14/18 1:00 pm (The appointment will be in the [facility]. [phone] Thank you ) Prescriptions: Ertapenem Sodium [Ertapenem] 1 gm IV DAILY 42 Days #42 vial Gabapentin [Neurontin] 600 mg PO BID 3 Days #6 tablet Oxycodone HCl/Acetaminophen [Percocet 5-325 mg Tablet] 1 each PO Q6HR PRN 3 Days #9 tablet PRN Reason: Pain Vancomycin/0.9 % Sod Chloride [Vanco 1.5 gm/150 ml-0.9% NaCl] 1.5 gm IV DAILY #42 plast..bag - Attending Attestation I have personally performed a face to face evaluation on this patient. I have reviewed and agree with the care plan. History and Exam by me shows: Assessment and Plan: 1.Sepsis 2.Osteomyelitis bilateral feet; causative organims pending. going for amputation of R BKA 3.Diabetic foot ulcer 4.HTN 5.Acute Respiratory failure with hypoxia 6.DM II insulint dependent Recommendations: Continue Vancomycin IV. Pharmacy to dose. Goal trough ~15. Continue Ertapenem 1 gram IV daily. Monitor renal function and for drug toxicity and dose-adjust antibiotics. Duration of treatment depends on the clinical picture, but likely 6 weeks. Will plan to treat through 01/10/19 at least. sales representative facility services to assist with discharge planning. Will need weekly CBC, BUN/Cr, ESR, CRP, Vanc trough. Will need weekly IV care per protocol. Follow up with ID 12/29/18 at 1421
--- NOTE | 2018-12-06 10:01 | Internal Med Progress Note ---
Hospitalist Progress Note - Encounter Date of Encounter: 12/06/18 Time of Encounter: 10:01 - Subjective Interval History: Patient seen and examined this morning at bedside. No acute overnight events. Denies new complaint. Complains of occasional anxiety and difficulty breathing. Saturating well on 3 L nasal cannula. Denies any chest pain. - Exam Vitals: Temp Pulse Resp BP Pulse Ox 97.9 F 68 15 161/71 95 12/06/18 07:24 12/06/18 07:24 12/06/18 07:24 12/06/18 07:24 12/06/18 07:24 Exam: General: In no acute distress. Respiratory exam: no accessory muscle use. decreased air entry but improved. minimal crackles at base Cardiovascular exam: RRR, +S1, +S2. no murmur, gallop, rubs. GI/Abdominal exam: Non-tender, Non-distended, normal bowel sounds, soft, no peritoneal signs. Extremities exam: 1+ pedal edema on Rt LE, LT BKA with dressing. Rt toes with better color, has wound vac and boots. LUE with pitting edema, improve. Neurological exam: CN II-XII intact, AO X3, no focal deficits Skin exam: rt LE chronic dermatitis - Assessment and Plan (1) HTN (hypertension) Current Visit: Yes Status: Chronic (2) Insulin dependent diabetes mellitus Current Visit: Yes Status: Chronic (3) Peripheral vascular disease due to secondary diabetes Current Visit: Yes Status: Chronic (4) Foot ulcer with necrosis of bone Current Visit: Yes Status: Acute (5) Hyponatremia Current Visit: Yes Status: Acute (6) Code status needs review Current Visit: Yes Status: Chronic (7) Acute respiratory failure with hypoxia Current Visit: Yes Status: Acute (8) COPD exacerbation Current Visit: Yes Status: Acute (9) Systolic heart failure Current Visit: Yes Status: Chronic (10) Hypoglycemia Current Visit: Yes Status: Acute (11) Osteomyelitis Current Visit: Yes Status: Acute (12) Sepsis Current Visit: Yes Status: Acute - Summary of Assessment and Plan Summary of Assessment and Plan: Assessment Acute Sepsis-resolved Diabetic foot ulcer with ulcer, necrosis and osteomyelitis on both LE acute hypoxic respiratory failure with hypoxia - resolved COPD exacerbation- resolved Pneumonia- RLB, unclear organism Hypoglycemia-resolved Psuedohyponatremia-resolved Uncontrolled diabetes Recent PE Goals of care discussion. NSVT hyperkalemia Urinary retention Chronic HTN chronic systolic heart failure PAD Diabetes related Neuropathy and nephropathy IDDM COPD HLD CAD Plan - patient to finish 6 weeks of vancomycin and ertapenam at SNF. Will need weekly blood work. - c/w prednisone taper to finish in 2 days and scheduled bronchodilators. - Blood glucose better controlled. c/w current regimen. - c/w metoprolol and prn Hyralazine IV for sbp>180. - c/w hagen for retention. Will need outpatient void trial - c/w home eliquis for recent PE. - DNR CCA DNI per family discussion and patient in agreement with POA present. - Plan for DC today once placement available. Internal Medicine: Result - Labs CBC & Chem 7: 12/05/18 03:45 12/05/18 03:45 - ABG Interpretation ABG results: ABG ABG pH 7.40 pH Units (7.32-7.45) 11/27/18 05:47 ABG pCO2 41 mmHg (35-45) 11/27/18 05:47 ABG pO2 73 mmHg (85-104) L 11/27/18 05:47 ABG O2 Saturation 94 % (95-98) L 11/27/18 05:47 PT/INR, D-dimer PT 11.0 Seconds (9.4-12.1) 11/28/18 13:10 - Impressions Impressions Chest X-Ray 12/05/18 14:57 IMPRESSION: 1. Right PICC catheter tip overlies the mid SVC. 2. Stable mild enlargement of the cardiac silhouette. 3. Partial obscuration of the left hemidiaphragm, likely secondary to a left lower lobe consolidation and small left pleural effusion. D/ / Chip Caldwell MD / Cihp Caldwell MD Interpreting Provider: Chip Caldwell MD Consult Discharge Plan - Plan Referrals: David Jerez [Primary Care Provider] - Denny Armenta MD [Partnered Physician] - 01/10/19 2:20 pm Sherin Julien CNP [Advanced Practice Nurse] - 12/29/18 2:20 pm Prescriptions: Ertapenem Sodium [Ertapenem] 1 gm IV DAILY 42 Days #42 vial Gabapentin [Neurontin] 600 mg PO BID 3 Days #6 tablet Oxycodone HCl/Acetaminophen [Percocet 5-325 mg Tablet] 1 each PO Q6HR PRN 3 Days #9 tablet PRN Reason: Pain Vancomycin/0.9 % Sod Chloride [Vanco 1.5 gm/150 ml-0.9% NaCl] 1.5 gm IV DAILY #42 plast..bag (1) HTN (hypertension) Qualifiers: Hypertension type: essential hypertension Qualified Code(s): I10 - Essential (primary) hypertension (4) Foot ulcer with necrosis of bone Qualifiers: Laterality: unspecified laterality Qualified Code(s): L97.504 - Non-pressure chronic ulcer of other part of unspecified foot with necrosis of bone (9) Systolic heart failure Qualifiers: Heart failure chronicity: chronic Qualified Code(s): I50.22 - Chronic sys tolic (congestive) heart failure (11) Osteomyelitis Qualifiers: Osteomyelitis type: acute hematogenous Osteomyelitis location: foot Laterality: unspecified laterality Qualified Code(s): M86.079 - Acute hematogenous osteomyelitis, unspecified ankle and foot (12) Sepsis Qualifiers: Sepsis type: sepsis due to unspecified organism Qualified Code(s): A41.9 - Sepsis, unspecified organism
[2018-12-06 10:33] VITALS: BP 144/66
[2018-12-06] MEDS: Budesonide/Formoterol 160/4.5 1 PUFF INH IH SCH (10:37)
[2018-12-06] MEDS: Ipratropium/Albuterol Neb 3 ML IH SCH (10:38)
[2018-12-06] MEDS ORDERED: Aminoglycoside Consult 1 EACH MC ONE (15:05)
== END 2018-12-06 15:06 | DRG 616 ==
LOC: EMEROOARM 20:21 → 3ANU 20:21 → SUATTDRO 22:42 → 3ANU 11-26 → SUATTDRO 11-27 08:52
PROVIDERS: ADMIT Internal Medicine Nephrology; ATTEND Internal Medicine